=== PATIENT | male | born 1940 | race Caucasian/White ===

== ENCOUNTER 2017-11-14 12:39 | Emergency (ER) | payer MEDICARE ==
--- NOTE | 2017-11-14 13:05 | EDM.PDOC ---
ED HPI GENERAL MEDICAL PROBLEM - General Chief Complaint: Neuro Symptoms/Deficits Stated Complaint: ACUTE COGNITIVE CHANGES Time Seen by Provider: 11/14/17 12:45 Source of Information: Reports: Halfway Records, Old Records History Limitations: Reports: Altered Mental Status, Physical Impairment - History of Present Illness INITIAL COMMENTS - FREE TEXT/NARRATIVE: Kari is a patient at [facility] who has a remote hx of Type II DM on insulin, CVA, and epilepsy. This am, he appears lethargic, incapable of participating in any ADLs with staff, and not eating. He typically is nonverbal , operates a motorized wheelchair, and gestures when needs assistance. There has been no injury hx, fever, chills, sweats, hypoglycemic episodes, chest pain or dyspnea. - Related Data Allergies Allergy/AdvReac Type Severity Reaction Status Date / Time No Known Allergies Allergy Verified 11/14/17 12:52 Home Meds: Home Meds Baclofen 10 mg PO BID 10/28/13 [History] Ca Cmb No.1/Vit D3/B-6/FA/B12 [Vitamin D3 1,000 Unit] 1 each PO DAILY 10/28/13 [ History] Ferrous Sulfate [Iron] 325 mg PO BID 10/28/13 [History] Folic Acid 1 mg PO DAILY 10/28/13 [History] Furosemide [Lasix] 80 mg PO DAILY 10/28/13 [History] Gabapentin [Neurontin] 300 mg PO DAILY 10/28/13 [History] Insulin Glarg,Human.Rec.Analog [LantUS] 60 unit SUBCUT BEDTIME 10/28/13 [History ] Omeprazole 20 mg PO DAILY 10/28/13 [History] PARoxetine [Paxil] 10 mg PO DAILY 10/28/13 [History] Potassium Chloride 10 meq PO BID 10/28/13 [History] Sennosides/Docusate Sodium [Senna-S] 1 each PO BID 10/28/13 [History] Simvastatin [Zocor] 20 mg PO BEDTIME 10/28/13 [History] Warfarin [Coumadin] 5 mg PO ASDIRECTED 10/28/13 [History] metFORMIN [Glucophage] 1,000 mg PO BIDM 10/28/13 [History] traMADol HCl [Ultram] 50 mg PO DAILY 10/28/13 [History] Acetaminophen [Tylenol] 325 mg PO Q4HR PRN 05/06/14 [History] Acetaminophen/HYDROcodone [[place] 325-5 MG] 1 tab PO Q6H PRN 05/06/14 [History] Clotrimazole/Betamethasone Dip [Lotrisone Cream] 1 applic TOP BID 05/06/14 [ History] Ascorbic Acid [C-1000] 1,000 mg PO DAILY 05/08/15 [History] Dextromethorphan/guaiFENesin [Robitussin DM] 5 ml PO Q4H 05/08/15 [History] Dextrose [Glucose Gel] 37.5 gm PO DAILY 05/08/15 [History] Eucalyptus/Menthol [Menthol Cough Drops] 1 each MM ASDIRECTED PRN 05/08/15 [ History] Glucagon,Human Recombinant [Glucagon Emergency Kit] 1 mg IM DAILY PRN 05/08/15 [ History] Glycerin 1 each RC Q72H PRN 05/08/15 [History] Hydrocortisone [Hydrocortisone 1% Crm] 1 applic TOP BID PRN 05/08/15 [History] Insulin Aspart [NovoLOG] 6 units SUBCUT DAILY 05/08/15 [History] Magnesium Hydroxide [Milk of Magnesia] 30 ml PO BEDTIME PRN 05/08/15 [History] Multivitamin [One Daily Multivitamin] 1 each PO DAILY 05/08/15 [History] Na Phos,M-B/Na Phos,DI-B [Fleet Enema] 118 ml RC DAILY PRN 05/08/15 [History] Warfarin [Coumadin] 6 mg PO ASDIRECTED 05/08/15 [History] Zinc 50 mg PO DAILY 05/08/15 [History] levETIRAcetam [Levetiracetam] 1,000 mg PO BID 05/08/15 [History] levETIRAcetam [Keppra] 1,000 mg PO BID 05/09/15 [History] Past Medical History Other HEENT History: BLEPHAROSPASM Cardiovascular History: Reports: Blood Clots/VTE/DVT, Cardiomyopathy, High Cholesterol Other Cardiovascular History: PERIPHERAL VASCULAR DISEASE Other Respiratory History: SLEEP DISORDER Gastrointestinal History: Reports: GERD Genitourinary History: Reports: Urinary Incontinence, UTI, Recurrent Neurological History: Reports: CVA, Speech Problems Other Psychiatric History: APHASIA Endocrine/Metabolic History: Reports: Diabetes, Type II, IDDM Hematologic History: Reports: Folic Acid, Iron Deficiency ED ROS GENERAL - Review of Systems Review Of Systems: Unable To Obtain ED EXAM, GENERAL - Physical Exam Exam: See Below Exam Limited By: Altered Mental Status General Appearance: No Apparent Distress, Lethargic, Obese Eye Exam: Bilateral Eye: Normal Inspection, PERRL Ears: Normal External Exam Nose: Normal Inspection Throat/Mouth: Normal Inspection, No Airway Compromise Head: Normocephalic Neck: Normal Inspection, Supple Respiratory/Chest: Lungs Clear, Decreased Breath Sounds Cardiovascular: Regular Rate, Rhythm, No Murmur GI/Abdominal: Normal Bowel Sounds, Soft, Non-Tender, No Organomegaly, No Distention, No Mass (Male) Exam: No Hernia Rectal (Males) Exam: Deferred Back Exam: Normal Inspection Extremities: Limited Range of Motion (RUE>RLE; ) Neurological: Inattentive, Disoriented, Unresponsive, Other (yells and moves to flexion with pain) Psychiatric: Flat Affect Skin Exam: Warm, Dry, Intact, Normal Color, No Rash Lymphatic: No Adenopathy Course - Vital Signs Text/Narrative:: Following asessment at the [facility] ED, some screenng labwork including CBC, CMP Troponin I, ekg and UA were reviewed and remain baseline. Mr Brand remains lethargic without new focal neurologic or cardopulmonary findings. He will be returned to SNF. No change in medical therapy anticipated at this time. Last Recorded V/S: Last Vital Signs Temp 36.2 C 11/14/17 13:41 Pulse 72 11/14/17 13:41 Resp 20 11/14/17 13:41 BP 119/46 L 11/14/17 13:41 Pulse Ox 100 11/14/17 13:41 - Orders/Labs/Meds Orders: Active Orders 24 hr Category Date Time Status EKG Documentation Completion [RC] ASDIRECTED Care 11/14/17 12:59 Active URINALYSIS W/MICROSCOPIC [UA W/MICROSCOPIC] [URIN] Stat Lab 11/14/17 13:00 Ordered EKG 12 Lead [EK] Routine Ther 11/14/17 12:58 Ordered Labs: Laboratory Tests 11/14/17 11/14/17 11/14/17 Range/Units 13:00 13:15 13:15 WBC 4.4 L (4.5-12.0) X10-3/uL RBC 3.02 L (4.30-5.75) x10(6)uL Hgb 8.3 L (11.5-15.5) g/dL Hct 26.2 L (30.0-51.3) % MCV 87.0 (80-96) fL MCH 27.5 L (27.7-33.6) pg MCHC 31.7 L (32.2-35.4) g/dL RDW 16.3 H (11.5-15.5) % Plt Count 220 (125-369) X10(3)uL MPV 7.1 L (7.4-10.4) fL Neut % (Auto) 51.0 (46-82) % Lymph % (Auto) 25.9 (13-37) % Dolores % (Auto) 17.3 H (4-12) % Eos % (Auto) 5 (1.0-5.0) % Baso % (Auto) 0 (0-2) % Neut # (Auto) 2.3 (1.6-8.3) # Lymph # (Auto) 1.1 (0.6-5.0) # Dolores # (Auto) 0.8 (0.0-1.3) # Eos # (Auto) 0.2 (0.0-0.8) # Baso # (Auto) 0.0 (0.0-0.2) # Sodium 145 (135-145) mmol/L Potassium 4.0 (3.5-5.3) mmol/L Chloride 107 (100-110) mmol/L Carbon Dioxide 32 (21-32) mmol/L BUN 21 H (7-18) mg/dL Creatinine 1.3 (0.70-1.30) mg/dL Est Cr Clr Drug Dosing 43.62 mL/min Estimated GFR (MDRD) 54 L (>60) BUN/Creatinine Ratio 16.2 (9-20) Glucose 139 H (80-116) mg/dL Calcium 8.8 (8.6-10.2) mg/dL Total Bilirubin 0.7 (0.1-1.3) mg/dL AST 32 H (5-25) IU/L ALT 20 (12-36) U/L Alkaline Phosphatase 109 (56-112) IU/L Troponin I (<0.017-0.056) ng/mL Total Protein 6.6 (6.0-8.0) g/dL Albumin 2.5 L (3.2-4.6) g/dL Globulin 4.1 g/dL Albumin/Globulin Ratio 0.6 Urine Color Yellow (YELLOW) Urine Appearance Clear (CLEAR) Urine pH 6.0 (5.0-6.5) Ur Specific [place] 1.020 (1.010-1.025) Urine Protein Negative (NEGATIVE) mg/dL Urine Glucose (UA) Normal (NEGATIVE) mg/dL Urine Ketones Negative (NEGATIVE) mg/dL Urine Occult Blood Negative (NEGATIVE) Urine Nitrite Negative (NEGATIVE) Urine Bilirubin Small H (NEGATIVE) Urine Urobilinogen 1 H (NEGATIVE) mg/dL Ur Leukocyte Esterase Negative (NEGATIVE) Urine RBC 0-5 (0) Urine WBC 0-5 (0) Ur Squamous Epith Cells Few H (NS,R,O) Urine Bacteria Many H (NS) 11/14/17 Range/Units 13:15 WBC (4.5-12.0) X10-3/uL RBC (4.30-5.75) x10(6)uL Hgb (11.5-15.5) g/dL Hct (30.0-51.3) % MCV (80-96) fL MCH (27.7-33.6) pg MCHC (32.2-35.4) g/dL RDW (11.5-15.5) % Plt Count (125-369) X10(3)uL MPV (7.4-10.4) fL Neut % (Auto) (46-82) % Lymph % (Auto) (13-37) % Dolores % (Auto) (4-12) % Eos % (Auto) (1.0-5.0) % Baso % (Auto) (0-2) % Neut # (Auto) (1.6-8.3) # Lymph # (Auto) (0.6-5.0) # Dolores # (Auto) (0.0-1.3) # Eos # (Auto) (0.0-0.8) # Baso # (Auto) (0.0-0.2) # Sodium (135-145) mmol/L Potassium (3.5-5.3) mmol/L Chloride (100-110) mmol/L Carbon Dioxide (21-32) mmol/L BUN (7-18) mg/dL Creatinine (0.70-1.30) mg/dL Est Cr Clr Drug Dosing mL/min Estimated GFR (MDRD) (>60) BUN/Creatinine Ratio (9-20) Glucose (80-116) mg/dL Calcium (8.6-10.2) mg/dL Total Bilirubin (0.1-1.3) mg/dL AST (5-25) IU/L ALT (12-36) U/L Alkaline Phosphatase (56-112) IU/L Troponin I < 0.017 L (<0.017-0.056) ng/mL Total Protein (6.0-8.0) g/dL Albumin (3.2-4.6) g/dL Globulin g/dL Albumin/Globulin Ratio Urine Color (YELLOW) Urine Appearance (CLEAR) Urine pH (5.0-6.5) Ur Specific [place] (1.010-1.025) Urine Protein (NEGATIVE) mg/dL Urine Glucose (UA) (NEGATIVE) mg/dL Urine Ketones (NEGATIVE) mg/dL Urine Occult Blood (NEGATIVE) Urine Nitrite (NEGATIVE) Urine Bilirubin (NEGATIVE) Urine Urobilinogen (NEGATIVE) mg/dL Ur Leukocyte Esterase (NEGATIVE) Urine RBC (0) Urine WBC (0) Ur Squamous Epith Cells (NS,R,O) Urine Bacteria (NS) Departure - Departure Time of Disposition: 14:16 Disposition: DC/Tfer to SNF 03 Condition: Fair Clinical Impression: Lethargy - Discharge Information Forms: ED Department Discharge - Problem List & Annotations (1) Lethargy SNOMED Code(s): 441965667 Code(s): R53.83 - OTHER FATIGUE Status: Acute Current Visit: Yes Annotation/Comment:: Lethargy NOS, likely multifactorial with chronic disease. He will return to SNF, keep comfortable and offer nuitrition and hydration as tolerated. - Problem List Review Problem List Initiated/Reviewed/Updated: Yes - My Orders Last 24 Hours: My Active Orders 11/14/17 12:58 EKG 12 Lead [EK] Routine 11/14/17 12:59 EKG Documentation Completion [RC] ASDIRECTED 11/14/17 13:00 URINALYSIS W/MICROSCOPIC [UA W/MICROSCOPIC] [URIN] Stat - Assessment/Plan Last 24 Hours: My Active Orders 11/14/17 12:58 EKG 12 Lead [EK] Routine 11/14/17 12:59 EKG Documentation Completion [RC] ASDIRECTED 11/14/17 13:00 URINALYSIS W/MICROSCOPIC [UA W/MICROSCOPIC] [URIN] Stat Plan: Follow up with PCP.
[2017-11-14 14:32] VITALS: BP 125/45
== END 2017-11-14 14:37 ==
LOC: FB.ED 12:39
DX: R53.83 Other fatigue (principal); E11.9 Type 2 diabetes mellitus without complications; E78.00 Pure hypercholesterolemia, unspecified; K21.9 Gastro-esophageal reflux disease without esophagitis; I42.9 Cardiomyopathy, unspecified; Z79.899 Other long term (current) drug therapy; Z79.4 Long term (current) use of insulin; Z79.01 Long term (current) use of anticoagulants
CPT/HCPCS: 36415; 80053; 81001; 84484; 85025; 93005; 99283

== ENCOUNTER 2017-12-10 23:11 | Inpatient (IN) | payer MEDICARE ==
[2017-12-10] MEDS: Sodium Chloride 0.9% 1,000 ML IV SCH (23:35)
[2017-12-10] MEDS ORDERED: Piperacillin/Tazobactam 3.375 GM in Sodium Chloride 0.9% 50 ML IV SCH (23:45)
[2017-12-11] MEDS ORDERED: Acetaminophen 325 MG Tab PO PRN (02:22)
[2017-12-11] MEDS ORDERED: Docusate Sodium 100 MG Cap PO PRN (02:22)
[2017-12-11] MEDS ORDERED: Ondansetron 4 MG/2 ML SDV IV PRN (02:22)
[2017-12-11] MEDS ORDERED: Ondansetron 8 MG Tab.DIS PO PRN (02:22)
[2017-12-11] MEDS ORDERED: Glucagon,Human Recombinant 1 MG Vial IM PRN (02:34)
[2017-12-11] MEDS ORDERED: Acetaminophen 650 MG Tab.ER PO PRN (02:34)
[2017-12-11] MEDS ORDERED: Piperacillin/Tazobactam 2.25 GM in Sodium Chloride 0.9% 50 ML IV SCH ×2 (02:45→06:00)
[2017-12-11] MEDS ORDERED: Norepinephrine 4 MG in Dextrose 5% in Water 246 ML IV SCH ×2 (03:15)
[2017-12-11] MEDS ORDERED: Magnesium Hydroxide 400 MG/5 ML Susp 30 ML Cup PO PRN (03:29)
[2017-12-11] MEDS: Hydrocortisone Sodium Succinate 100 MG/2 ML SDV IVPUSH SCH ×4 (04:41→21:07)
[2017-12-11] MEDS: Pantoprazole 40 MG Tab.CR PO SCH (06:39)
[2017-12-11] MEDS: Potassium Chloride 10 MEQ Tab.ER PO SCH ×2 (08:29→19:14)
[2017-12-11] MEDS: Baclofen 10 MG Tab PO SCH ×2 (08:29→21:06)
[2017-12-11] MEDS: Folic Acid 1 MG Tab PO SCH (08:29)
[2017-12-11] MEDS: metFORMIN 1,000 MG Tab PO SCH ×2 (08:29→17:27)
[2017-12-11] MEDS: levETIRAcetam 500 MG Tab PO SCH ×2 (08:29→21:06)
[2017-12-11] MEDS: Multivitamin Tab PO SCH (08:30)
[2017-12-11] MEDS: Cholecalciferol (Vitamin D3) 1,000 Unit Tab PO SCH (08:30)
[2017-12-11] MEDS: HYPROMELLOSE 0.3% EYEBOTH SCH ×2 (08:34→21:05)
--- NOTE | 2017-12-11 08:46 | ER ---
DATE SEEN: 12/10/2017 TIME SEEN: The patient was seen on his arrival at 2330 hours. HISTORY OF PRESENT ILLNESS: This 77-year-old [facility] patient was sent to the emergency room this evening because he had a fever. He had an order on 12/08/2017 for 2 units of blood, and the [facility] staff noted he received 2 units of blood on 12/09/2017. His hemoglobin was less than 8 at that time. Hemoglobin is 9.7 today. The patient has significant serious past medical history of coronary artery disease. He is on warfarin for multiple DVTs, and also multiple strokes and TIAs. He is a diabetic and is dependent on metformin 1000 mg b.i.d., and has insulin 60 units glargine at bedtime. Dyslipidemia, depression, and seizure disorder using levetiracetam 1000 mg b.i.d. and gabapentin 300 mg t.i.d. Dry eyes and baclofen for muscle tightness (status post CVA). He has a Port-A-Cath. Peripheral vascular disease secondary to diabetes, peripheral diabetic neuropathy with previous DVTs, several of them; for this reason, he is on anticoagulants and uses warfarin on Sundays and then 6 mg and 5 mg other days of the week. He has DVT noted since 11/01/1999 and has been on Coumadin since. Cholecystectomy and right SHANNON (total hip arthroplasty). He has not worked since 1997 when he had a stroke. He stopped smoking in 1998. 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 More recently, on 10/27/2017, he had 5 days of Levaquin 500 mg. On 10/10/2017, he had Keflex 500 mg t.i.d. for cellulitis of lower extremities. The cellulitis has resolved. On 11/14/2017, he was congested and placed on Lasix 80 mg daily. The patient has dark stools (he is not aware of them). The patient is a poor historian. He just laughs and has belly laugh, and does not communicate more than a hi and okay. His review of systems per [facility] staff are as listed in the HPI. REVIEW OF SYSTEMS: More specific information is gleaned from the custodial chart. HEENT: His own teeth. He is able to eat food. CARDIORESPIRATORY: As above. No history of coughing or chest pain. His oxygen saturation runs below 92%. He has edema in the right lower extremity more than left lower extremity. GI: He had dark stools. Last bowel movement on 12/09/2017. He is incontinent of stool. : Incontinent of urine, wears Attends. MUSCULOSKELETAL: Totally dependent on [facility] staff to move him. He has a large suspensory apparatus to move him about with Alyssa lift. NEURO: He is aware of family and [facility] staff. He is pleasant in general, and has made his maurice at the custodial by watering plants, keeping the plants, and raising plants, which he is quite proud of. SKIN: He has not had recurrent cellulitis of lower extremities since treated in September. ALLERGIES: None. CURRENT MEDICATIONS: 1. Cough medicine with guaifenesin. 2. Iron sulfate b.i.d. 3. Vitamin D 1000 units daily. 4. Warfarin 6 mg Mondays and 3 mg the other days. 5. Magnesium hydroxide 30 mg p.r.n. 6. Hypromellose, GenTeal eye drops b.i.d. 7. Glucagon p.r.n. 8. Gabapentin 300 mg t.i.d. for seizures. 9. Acetaminophen 650 q.6 hours. 10.Lantus 60 units at bedtime. 11.Senna-S 1 tablet b.i.d. 12.Potassium chloride 10 mEq b.i.d. 13.Simvastatin 20 mg daily. 14.Baclofen 10 mg b.i.d. 15.Paxil 30 mg daily. 16.Lasix 80 mg at bedtime (been increased recently). 17.Tramadol 50 mg at bedtime. 18.Levetiracetam 1000 mg b.i.d. 19.Multivitamin daily. 20.Folic acid 1 mg daily. 21.Omeprazole 20 mg daily. PHYSICAL EXAMINATION: VITAL SIGNS: Blood pressures had been low since his arrival at 86/25, 75/22, 80/46; heart rate 87, 85, and 82; respirations 20 and 18 when he is sleeping. Oxygen saturation 91% each occasion. Temperature is 38.6 on arrival, is now 38, and at 0130 hours was 36.5 centigrade in the ED. GENERAL: The patient is alert. He has a happy laugh, but his only communication was "hi" to the senior technical editor. He did not say anything to me. HEENT: He has mild poor opening of the left eye compared to the right eye. Pupils do react to light and they are consensual. Hearing is good. Pharynx is dry. He is edentulous. NECK: Without bruits. No thyromegaly or masses. No cervical adenopathy. No tracheal tug. No tracheal deviation. LUNGS: Clear to auscultation with rare rales at the bases posteriorly. HEART: S1 and S2. There is no irregular rate or rhythm. Heart sounds are distant. ABDOMEN: The patient has massive obesity with a massive increase in abdominal girth. Bowel sounds are present. No tenderness. Previous cholecystectomy scar is noted. No mass in the abdomen. No tenderness. GENITALIA: Negative. In-and-out Holliday catheter was placed for urine specimen. No hernia demonstrated. Testes are bilaterally descended. EXTREMITIES: Lower extremities, right lower extremity has greater edema than the left. Dorsalis pedis is weak bilaterally, but present bilaterally. Radial pulse is good. Carotid pulse is good. No jugular venous distention. NEURO: Deep tendon reflexes are absent in upper and lower extremities. Cranial nerves 2 through 12 are intact. It is unable to determine if he is oriented. He has very minimal communication because of his extensive CVA. He has right hemiparesis and hemiplegic. He has good strength in the left arm. Less strength in the left lower extremity. He is not ambulatory. He is totally bedridden. DERMIS: No evidence for decubiti. Skin is well taken care of by [facility] staff. PSYCHIATRIC: The patient is noted to be depressed, he is taking antidepressant, but he is quite buoyant with his laughter. He does acknowledge some of the history related to him and gleaned from the chart. 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 LABORATORY FINDINGS: Hemoglobin 9.7 and was 7.8 yesterday; two days before, he had the transfusion of 2 units. He needs several more units, however. His hemoglobin on August 13 was 9.4; on 11/05/2017, 8.9; 11/12/2017, 8.1; 11/14/2017, 8.3; 12/04/2017, 7.6; and now after two units of blood, 9.7 on 12/10/2017. Today's INR was 2.0 (0.89-1.13) and PT was 19.3 (8.7-11.1). ABG today, no suggestion of acidosis with pH 7.43, pCO2 of 36, pO2 of 65 on room air, bicarb 24, and oxygen saturation 93%. Today's chemistries with sodium 145, potassium 3.7, chloride 107, CO2 of 25, BUN 17, creatinine 1.6, and GFR 42 (chronic kidney disease, stage III). BUN and creatinine ratio does not suggest dehydration at 10.6 and glucose 115. Hemoglobin A1c is 5.6 (4.5-6.2). Lactic acid is elevated at 5.2 (reflecting early sepsis). Calcium is 7.9 with a calculated calcium of 9.2. Iron is low at 22 (38-169) on 11/12/2017 with elevated iron binding capacity and iron saturation of 7% (15-55) on 11/12/2017, unsaturated iron binding capacity at 298 normal, and ferritin 16 (30-40). Total bilirubin 0.8, was normal. Today's AST was slightly elevated at 33 (5/25) and ALT was 22 (normal 12-36). Troponin 0.021, not elevated today. BNP was mildly elevated at 711 (less than 450). Total protein 6.6, albumin 2.4, and globulin normal. On August 13, 2017, LDL cholesterol was 48, HDL cholesterol was 45, and total cholesterol was 98 at that time. Vitamin B12 was normal. Methylmalonic acid was normal. Folate normal. TSH was normal at 0.51 (0.36-3.74). Today's urine, cath specimen, moderate occult secondary to catheterization, large leukocyte esterase, 10-20 RBC's secondary to catheterization, and 5-10 WBC's with few bacteria. In August phenytoin was 0.2 mcg/mL (10-20) and levetiracetam 36.7 mcg/mL (10-40). ASSESSMENT: 1. The patient's fever etiology is indeterminate. Chest x-ray with suggestion of left lower lobe infiltrate. On comparison to previous chest x-rays, he has an ectatic aorta - torturous and widened mediastinum, which is noted to be secondary to fat on 05/02/2015 - prominent mediastinum. 2. Diabetes with controlled glucose. Presently, glucose is normal range, which suggests he should not have evening insulin dose. 3. Anticoagulation for his previous CVA's, transient ischemic attacks, and also multiple deep venous thromboses. 4. Normal D-dimer, no suggestion of aortic aneurysm or pulmonary embolism. 5. Hypoxia without respiratory acidosis. 6. Chronic kidney disease, stage III. 7. Lactic acidosis at 5.3, is elevated. 8. Calculated calcium is normal at 9.5. 9. Congestive heart failure, mild - trace. It goes along with his marked cardiomegaly (big mediastinal shadow with previous November 2014 x-ray. 10.No evidence for urinary tract infection. 11.Temperature has ranged from 100.3 in Alf to 101.5, which came down and is associated with the hypotension at 86/25, which suggests early sepsis with elevated lactic acid. Plan is to start norepinephrine and also antibiotics started, Zosyn and vancomycin. 12.He has a Port-A-Cath. 13.Dyslipidemia. 14.Depression. 15.Seizure disorder, stable. 16.On Baclofen, I think this is because of his previous CVAs. 17.Multiple deep venous thromboses in the past and multiple CVAs, consequently using anticoagulant, Coumadin. 18.Status post smoking, stopped in 1998. 19.Previous CVA in 1997. 20.The patient has been in the custodial since 2005 and has very limited communication skills, but he jokes a lot and is happy in spite of this. 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 21.Anticoagulation, chronic. 22.Hypoxia. 23.Anemia. PLAN: Admit for IV antibiotics and start norepinephrine low-dose to bring his systolic up to 90s/100s. The patient was seen on his arrival at 2330. The patient was admitted for further therapeutic care, and also ICU because he is going to be placed on norepinephrine. /[id number] CARLOS/SANDRA
--- NOTE | 2017-12-11 08:54 | ER ---
DATE SEEN: 12/10/2017 ADDENDUM: The patient has a positive Hemoccult stool. Has a GI bleed, etiology was indeterminate. I have not been able to document previous endoscopies on the chart. Perhaps, he is going to need that to validate and/or verify the source. The Journal of Internal Medicine (this month's COURT) noted that 10-15% of lower GI bleeds with bright red blood can be from an upper GI source. Consequently, EGD and also colonoscopy may or may not be needed to verify source of bleed. In view of his compromised cardiovascular and neuro status, perhaps, a lengthy discussion needs to be undertaken with family and deferred to the hospitalist. /[id number] CARLOS/SANDRA
--- NOTE | 2017-12-11 09:23 | PCM.HP ---
H&P History of Present Illness - General Date of Service: 12/11/17 Admit Problem/Dx: Admission Diagnosis/Problem Admission Diagnosis/Problem Sepsis Source of Information: Old Records History Limitations: Reports: Language Barrier - History of Present Illness Initial Comments - Free Text/Narative: This history was obtained mostly from records and [facility] records. Kari is a 77-year-old male was brought in because of fever and lethargy. The symptoms were sudden in onset yesterday, a day after 2 units of PRBCs were transfused. He has a history of CVA with right-sided hemiplegia and aphasia and therefore cannot give history. Temperature was recorded 101 at the [facility] , with an initial blood systolic blood pressure 101 and a pulse of 85. 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 - Related Data Allergies/Adverse Reactions: Allergies Allergy/AdvReac Type Severity Reaction Status Date / Time No Known Allergies Allergy Verified 12/11/17 06:13 Home Medications: Home Meds Baclofen 10 mg PO BID 10/28/13 [History] Folic Acid 1 mg PO DAILY 10/28/13 [History] Furosemide [Lasix] 80 mg PO BEDTIME 10/28/13 [History] Gabapentin [Neurontin] 300 mg PO TID 10/28/13 [History] Insulin Glarg,Human.Rec.Analog [LantUS] 60 unit SUBCUT BEDTIME 10/28/13 [History ] Omeprazole 20 mg PO DAILY 10/28/13 [History] Potassium Chloride 10 meq PO BID 10/28/13 [History] Sennosides/Docusate Sodium [Senna-S] 1 each PO BID 10/28/13 [History] Simvastatin [Zocor] 20 mg PO BEDTIME 10/28/13 [History] metFORMIN [Glucophage] 1,000 mg PO BID 10/28/13 [History] traMADol HCl [Ultram] 50 mg PO BEDTIME 10/28/13 [History] Glucagon,Human Recombinant [Glucagon Emergency Kit] 1 mg IM DAILY PRN 05/08/15 [ History] Magnesium Hydroxide [Milk of Magnesia] 30 ml PO BEDTIME PRN 05/08/15 [History] Multivitamin [One Daily Multivitamin] 1 each PO DAILY 05/08/15 [History] Warfarin [Coumadin] 6 mg PO MO 05/08/15 [History] levETIRAcetam [Levetiracetam] 1,000 mg PO BID 05/08/15 [History] Hypromellose [Genteal] 1 applic OP BID 11/14/17 [History] PARoxetine [Paxil] 30 mg PO DAILY 11/14/17 [History] Warfarin Sodium [Coumadin] 3 mg PO SUTUWETHFRSA 11/14/17 [History] Acetaminophen [Tylenol] 650 mg PO Q4H PRN 12/11/17 [History] Cholecalciferol (Vitamin D3) [Vitamin D3] 1,000 units PO DAILY 12/11/17 [History ] Ferrous Sulfate 324 mg PO BID 12/11/17 [History] guaiFENesin [Robitussin] 100 mg PO Q4H PRN 12/11/17 [History] Past Medical History - Past Health History Medical/Surgical History: Denies Medical/Surgical History HEENT History: Reports: Cataract, Other (See Below) Other HEENT History: BLEPHAROSPASM Cardiovascular History: Reports: Blood Clots/VTE/DVT, Cardiomyopathy, High Cholesterol Other Cardiovascular History: PERIPHERAL VASCULAR DISEASE Other Respiratory History: SLEEP DISORDER Gastrointestinal History: Reports: GERD Genitourinary History: Reports: Urinary Incontinence, UTI, Recurrent Neurological History: Reports: CVA, Speech Problems Psychiatric History: Reports: Suicidal Ideation Other Psychiatric History: APHASIA Endocrine/Metabolic History: Reports: Diabetes, Type II, IDDM Hematologic History: Reports: Folic Acid, Iron Deficiency - Past Surgical History Other Musculoskeletal Surgeries/Procedures:: unsure Social & Family History - Family History Family Medical History: Noncontributory - Tobacco Use Smoking Status *Q: Never Smoker Second Hand Smoke Exposure: No - Caffeine Use Caffeine Use: Reports: Coffee Other Caffeine Use: 1 to 2 cups daily Caffeine Use Comment: 1 cup coffee per day. Approximately 50oz soda per day. - Recreational Drug Use Recreational Drug Use: No H&P Review of Systems - Review of Systems: Review Of Systems: Unable To Obtain Exam - Exam Exam: See Below - Vital Signs Vital Signs: Last Vital Signs Temp 98.1 F 12/11/17 07:25 Pulse 70 12/11/17 07:25 Resp 18 12/11/17 07:25 BP 115/57 L 12/11/17 07:25 Pulse Ox 91 L 12/11/17 07:25 Weight: 116.573 kg - Exam Quality Assessment: No: Supplemental Oxygen General: Lethargic HEENT: PERRLA Neck: Supple Lungs: Normal Respiratory Effort, Rales Cardiovascular: Regular Rate, Regular Rhythm GI/Abdominal Exam: Normal Bowel Sounds, Soft, Non-Tender, Distended Back Exam: Normal Inspection Extremities: Normal Inspection. No: Pedal Edema, Increased Warmth Skin: Warm Neurological: Focal Deficit Neuro Extensive - Mental Status: Alert Neuro Extensive - Motor, Sensory, Reflexes: Motor/Sensory Deficits Psychiatric: Alert - Patient Data Lab Results Last 24 hrs: Laboratory Results - last 24 hr 12/10/17 12/10/17 12/10/17 Range/Units 00:00 00:00 00:00 WBC (4.5-12.0) X10-3/uL RBC (4.30-5.75) x10(6)uL Hgb (11.5-15.5) g/dL Hct (30.0-51.3) % MCV (80-96) fL MCH (27.7-33.6) pg MCHC (32.2-35.4) g/dL RDW (11.5-15.5) % Plt Count (125-369) X10(3)uL MPV (7.4-10.4) fL Neut % (Auto) (46-82) % Lymph % (Auto) (13-37) % Bay % (Auto) (4-12) % Eos % (Auto) (1.0-5.0) % Baso % (Auto) (0-2) % Neut # (Auto) (1.6-8.3) # Lymph # (Auto) (0.6-5.0) # Bay # (Auto) (0.0-1.3) # Eos # (Auto) (0.0-0.8) # Baso # (Auto) (0.0-0.2) # Add Manual Diff Neutrophils % (Manual) (46-82) % Lymphocytes % (Manual) (13-37) % Monocytes % (Manual) (4-12) % Eosinophils % (Manual) (0-5) % PT (8.7-11.1) INR (0.89-1.13) D-Dimer, Quantitative (0.0-0.59) mg/LFEU ABG pH (7.35-7.45) ABG pCO2 (35-45) mmHg ABG pO2 (83-108) mmHg ABG HCO3 (22-26) mmol/L ABG O2 Saturation (96-97) % ABG Base Excess (-2-2) Gonzalo Test O2 Delivery Device Sodium (135-145) mmol/L Potassium (3.5-5.3) mmol/L Chloride (100-110) mmol/L Carbon Dioxide (21-32) mmol/L BUN (7-18) mg/dL Creatinine (0.70-1.30) mg/dL Est Cr Clr Drug Dosing Estimated GFR (MDRD) (>60) BUN/Creatinine Ratio (9-20) Glucose (80-116) mg/dL Hemoglobin A1c (4.5-6.2) % Lactic Acid 5.2 H* (0.4-2.2) mmol/L Calcium (8.6-10.2) mg/dL Phosphorus (2.6-4.6) mg/dL Magnesium (1.8-2.5) mg/dL Total Bilirubin (0.1-1.3) mg/dL AST (5-25) IU/L ALT (12-36) U/L Alkaline Phosphatase (56-112) IU/L Troponin I 0.021 (<0.017-0.056) ng/mL NT-Pro-B Natriuret Pep 711 H (<=450) pg/mL Total Protein (6.0-8.0) g/dL Albumin (3.2-4.6) g/dL Globulin g/dL Albumin/Globulin Ratio TSH, Ultra Sensitive (0.36-3.74) IU/mL Urine Color (YELLOW) Urine Appearance (CLEAR) Urine pH (5.0-6.5) Ur Specific [place] (1.010-1.025) Urine Protein (NEGATIVE) mg/dL Urine Glucose (UA) (NEGATIVE) mg/dL Urine Ketones (NEGATIVE) mg/dL Urine Occult Blood (NEGATIVE) Urine Nitrite (NEGATIVE) Urine Bilirubin (NEGATIVE) Urine Urobilinogen (NEGATIVE) mg/dL Ur Leukocyte Esterase (NEGATIVE) Urine RBC (0) Urine WBC (0) Ur Squamous Epith Cells (NS,R,O) Urine Bacteria (NS) 12/10/17 12/10/17 12/10/17 Range/Units 00:00 00:00 00:00 WBC (4.5-12.0) X10-3/uL RBC (4.30-5.75) x10(6)uL Hgb (11.5-15.5) g/dL Hct (30.0-51.3) % MCV (80-96) fL MCH (27.7-33.6) pg MCHC (32.2-35.4) g/dL RDW (11.5-15.5) % Plt Count (125-369) X10(3)uL MPV (7.4-10.4) fL Neut % (Auto) (46-82) % Lymph % (Auto) (13-37) % Bay % (Auto) (4-12) % Eos % (Auto) (1.0-5.0) % Baso % (Auto) (0-2) % Neut # (Auto) (1.6-8.3) # Lymph # (Auto) (0.6-5.0) # Bay # (Auto) (0.0-1.3) # Eos # (Auto) (0.0-0.8) # Baso # (Auto) (0.0-0.2) # Add Manual Diff Neutrophils % (Manual) (46-82) % Lymphocytes % (Manual) (13-37) % Monocytes % (Manual) (4-12) % Eosinophils % (Manual) (0-5) % PT 17.4 H (8.7-11.1) INR 1.80 H (0.89-1.13) D-Dimer, Quantitative (0.0-0.59) mg/LFEU ABG pH (7.35-7.45) ABG pCO2 (35-45) mmHg ABG pO2 (83-108) mmHg ABG HCO3 (22-26) mmol/L ABG O2 Saturation (96-97) % ABG Base Excess (-2-2) Gonzalo Test O2 Delivery Device Sodium (135-145) mmol/L Potassium (3.5-5.3) mmol/L Chloride (100-110) mmol/L Carbon Dioxide (21-32) mmol/L BUN (7-18) mg/dL Creatinine (0.70-1.30) mg/dL Est Cr Clr Drug Dosing Estimated GFR (MDRD) (>60) BUN/Creatinine Ratio (9-20) Glucose (80-116) mg/dL Hemoglobin A1c 5.6 (4.5-6.2) % Lactic Acid (0.4-2.2) mmol/L Calcium (8.6-10.2) mg/dL Phosphorus (2.6-4.6) mg/dL Magnesium (1.8-2.5) mg/dL Total Bilirubin (0.1-1.3) mg/dL AST (5-25) IU/L ALT (12-36) U/L Alkaline Phosphatase (56-112) IU/L Troponin I (<0.017-0.056) ng/mL NT-Pro-B Natriuret Pep (<=450) pg/mL Total Protein (6.0-8.0) g/dL Albumin (3.2-4.6) g/dL Globulin g/dL Albumin/Globulin Ratio TSH, Ultra Sensitive 0.51 (0.36-3.74) IU/mL Urine Color (YELLOW) Urine Appearance (CLEAR) Urine pH (5.0-6.5) Ur Specific [place] (1.010-1.025) Urine Protein (NEGATIVE) mg/dL Urine Glucose (UA) (NEGATIVE) mg/dL Urine Ketones (NEGATIVE) mg/dL Urine Occult Blood (NEGATIVE) Urine Nitrite (NEGATIVE) Urine Bilirubin (NEGATIVE) Urine Urobilinogen (NEGATIVE) mg/dL Ur Leukocyte Esterase (NEGATIVE) Urine RBC (0) Urine WBC (0) Ur Squamous Epith Cells (NS,R,O) Urine Bacteria (NS) 12/10/17 12/10/17 12/10/17 Range/Units 00:00 00:00 00:00 WBC 6.3 (4.5-12.0) X10-3/uL RBC 3.43 L (4.30-5.75) x10(6)uL Hgb 9.7 L (11.5-15.5) g/dL Hct 30.1 (30.0-51.3) % MCV 87.9 (80-96) fL MCH 28.2 (27.7-33.6) pg MCHC 32.1 L (32.2-35.4) g/dL RDW 16.5 H (11.5-15.5) % Plt Count 169 (125-369) X10(3)uL MPV 7.8 (7.4-10.4) fL Neut % (Auto) (46-82) % Lymph % (Auto) (13-37) % Bay % (Auto) (4-12) % Eos % (Auto) (1.0-5.0) % Baso % (Auto) (0-2) % Neut # (Auto) (1.6-8.3) # Lymph # (Auto) (0.6-5.0) # Bay # (Auto) (0.0-1.3) # Eos # (Auto) (0.0-0.8) # Baso # (Auto) (0.0-0.2) # Add Manual Diff Yes Neutrophils % (Manual) 67 (46-82) % Lymphocytes % (Manual) 20 (13-37) % Monocytes % (Manual) 12 (4-12) % Eosinophils % (Manual) 1 (0-5) % PT (8.7-11.1) INR (0.89-1.13) D-Dimer, Quantitative 0.36 (0.0-0.59) mg/LFEU ABG pH (7.35-7.45) ABG pCO2 (35-45) mmHg ABG pO2 (83-108) mmHg ABG HCO3 (22-26) mmol/L ABG O2 Saturation (96-97) % ABG Base Excess (-2-2) Gonzalo Test O2 Delivery Device Sodium 145 (135-145) mmol/L Potassium 3.7 (3.5-5.3) mmol/L Chloride 107 (100-110) mmol/L Carbon Dioxide 25 (21-32) mmol/L BUN 17 (7-18) mg/dL Creatinine 1.6 H (0.70-1.30) mg/dL Est Cr Clr Drug Dosing TNP Estimated GFR (MDRD) 42 L (>60) BUN/Creatinine Ratio 10.6 (9-20) Glucose 115 (80-116) mg/dL Hemoglobin A1c (4.5-6.2) % Lactic Acid (0.4-2.2) mmol/L Calcium 7.9 L (8.6-10.2) mg/dL Phosphorus (2.6-4.6) mg/dL Magnesium (1.8-2.5) mg/dL Total Bilirubin 0.8 (0.1-1.3) mg/dL AST 33 H (5-25) IU/L ALT 22 (12-36) U/L Alkaline Phosphatase 117 H (56-112) IU/L Troponin I (<0.017-0.056) ng/mL NT-Pro-B Natriuret Pep (<=450) pg/mL Total Protein 6.6 (6.0-8.0) g/dL Albumin 2.4 L (3.2-4.6) g/dL Globulin 4.2 g/dL Albumin/Globulin Ratio 0.6 TSH, Ultra Sensitive (0.36-3.74) IU/mL Urine Color (YELLOW) Urine Appearance (CLEAR) Urine pH (5.0-6.5) Ur Specific [place] (1.010-1.025) Urine Protein (NEGATIVE) mg/dL Urine Glucose (UA) (NEGATIVE) mg/dL Urine Ketones (NEGATIVE) mg/dL Urine Occult Blood (NEGATIVE) Urine Nitrite (NEGATIVE) Urine Bilirubin (NEGATIVE) Urine Urobilinogen (NEGATIVE) mg/dL Ur Leukocyte Esterase (NEGATIVE) Urine RBC (0) Urine WBC (0) Ur Squamous Epith Cells (NS,R,O) Urine Bacteria (NS) 12/10/17 12/10/17 12/11/17 Range/Units 23:55 23:55 00:05 WBC (4.5-12.0) X10-3/uL RBC (4.30-5.75) x10(6)uL Hgb (11.5-15.5) g/dL Hct (30.0-51.3) % MCV (80-96) fL MCH (27.7-33.6) pg MCHC (32.2-35.4) g/dL RDW (11.5-15.5) % Plt Count (125-369) X10(3)uL MPV (7.4-10.4) fL Neut % (Auto) (46-82) % Lymph % (Auto) (13-37) % Bay % (Auto) (4-12) % Eos % (Auto) (1.0-5.0) % Baso % (Auto) (0-2) % Neut # (Auto) (1.6-8.3) # Lymph # (Auto) (0.6-5.0) # Bay # (Auto) (0.0-1.3) # Eos # (Auto) (0.0-0.8) # Baso # (Auto) (0.0-0.2) # Add Manual Diff Neutrophils % (Manual) (46-82) % Lymphocytes % (Manual) (13-37) % Monocytes % (Manual) (4-12) % Eosinophils % (Manual) (0-5) % PT (8.7-11.1) INR (0.89-1.13) D-Dimer, Quantitative (0.0-0.59) mg/LFEU ABG pH 7.43 (7.35-7.45) ABG pCO2 36 (35-45) mmHg ABG pO2 65 L (83-108) mmHg ABG HCO3 24 (22-26) mmol/L ABG O2 Saturation 93 L (96-97) % ABG Base Excess 0.2 (-2-2) Gonzalo Test Passed O2 Delivery Device Room air Sodium (135-145) mmol/L Potassium (3.5-5.3) mmol/L Chloride (100-110) mmol/L Carbon Dioxide (21-32) mmol/L BUN (7-18) mg/dL Creatinine (0.70-1.30) mg/dL Est Cr Clr Drug Dosing Estimated GFR (MDRD) (>60) BUN/Creatinine Ratio (9-20) Glucose (80-116) mg/dL Hemoglobin A1c (4.5-6.2) % Lactic Acid (0.4-2.2) mmol/L Calcium (8.6-10.2) mg/dL Phosphorus 2.5 L (2.6-4.6) mg/dL Magnesium 1.6 L (1.8-2.5) mg/dL Total Bilirubin (0.1-1.3) mg/dL AST (5-25) IU/L ALT (12-36) U/L Alkaline Phosphatase (56-112) IU/L Troponin I (<0.017-0.056) ng/mL NT-Pro-B Natriuret Pep (<=450) pg/mL Total Protein (6.0-8.0) g/dL Albumin (3.2-4.6) g/dL Globulin g/dL Albumin/Globulin Ratio TSH, Ultra Sensitive (0.36-3.74) IU/mL Urine Color (YELLOW) Urine Appearance (CLEAR) Urine pH (5.0-6.5) Ur Specific [place] (1.010-1.025) Urine Protein (NEGATIVE) mg/dL Urine Glucose (UA) (NEGATIVE) mg/dL Urine Ketones (NEGATIVE) mg/dL Urine Occult Blood (NEGATIVE) Urine Nitrite (NEGATIVE) Urine Bilirubin (NEGATIVE) Urine Urobilinogen (NEGATIVE) mg/dL Ur Leukocyte Esterase (NEGATIVE) Urine RBC (0) Urine WBC (0) Ur Squamous Epith Cells (NS,R,O) Urine Bacteria (NS) 12/11/17 12/11/17 12/11/17 Range/Units 01:10 06:30 06:30 WBC 4.1 L (4.5-12.0) X10-3/uL RBC 3.28 L (4.30-5.75) x10(6)uL Hgb 8.9 L (11.5-15.5) g/dL Hct 28.7 L (30.0-51.3) % MCV 87.5 (80-96) fL MCH 27.2 L (27.7-33.6) pg MCHC 31.1 L (32.2-35.4) g/dL RDW 16.4 H (11.5-15.5) % Plt Count 140 (125-369) X10(3)uL MPV 7.5 (7.4-10.4) fL Neut % (Auto) 58.0 (46-82) % Lymph % (Auto) 16.9 (13-37) % Bay % (Auto) 19.3 H (4-12) % Eos % (Auto) 5 (1.0-5.0) % Baso % (Auto) 1 (0-2) % Neut # (Auto) 2.3 (1.6-8.3) # Lymph # (Auto) 0.7 (0.6-5.0) # Bay # (Auto) 0.8 (0.0-1.3) # Eos # (Auto) 0.2 (0.0-0.8) # Baso # (Auto) 0.1 (0.0-0.2) # Add Manual Diff Neutrophils % (Manual) (46-82) % Lymphocytes % (Manual) (13-37) % Monocytes % (Manual) (4-12) % Eosinophils % (Manual) (0-5) % PT (8.7-11.1) INR (0.89-1.13) D-Dimer, Quantitative (0.0-0.59) mg/LFEU ABG pH (7.35-7.45) ABG pCO2 (35-45) mmHg ABG pO2 (83-108) mmHg ABG HCO3 (22-26) mmol/L ABG O2 Saturation (96-97) % ABG Base Excess (-2-2) Gonzalo Test O2 Delivery Device Sodium (135-145) mmol/L Potassium (3.5-5.3) mmol/L Chloride (100-110) mmol/L Carbon Dioxide (21-32) mmol/L BUN (7-18) mg/dL Creatinine (0.70-1.30) mg/dL Est Cr Clr Drug Dosing Estimated GFR (MDRD) (>60) BUN/Creatinine Ratio (9-20) Glucose (80-116) mg/dL Hemoglobin A1c (4.5-6.2) % Lactic Acid (0.4-2.2) mmol/L Calcium (8.6-10.2) mg/dL Phosphorus (2.6-4.6) mg/dL Magnesium (1.8-2.5) mg/dL Total Bilirubin (0.1-1.3) mg/dL AST (5-25) IU/L ALT (12-36) U/L Alkaline Phosphatase (56-112) IU/L Troponin I 0.018 (<0.017-0.056) ng/mL NT-Pro-B Natriuret Pep (<=450) pg/mL Total Protein (6.0-8.0) g/dL Albumin (3.2-4.6) g/dL Globulin g/dL Albumin/Globulin Ratio TSH, Ultra Sensitive (0.36-3.74) IU/mL Urine Color Yellow (YELLOW) Urine Appearance Slightly cloudy (CLEAR) Urine pH 5.0 (5.0-6.5) Ur Specific [place] 1.015 (1.010-1.025) Urine Protein Negative (NEGATIVE) mg/dL Urine Glucose (UA) Normal (NEGATIVE) mg/dL Urine Ketones Negative (NEGATIVE) mg/dL Urine Occult Blood Moderate H (NEGATIVE) Urine Nitrite Negative (NEGATIVE) Urine Bilirubin Negative (NEGATIVE) Urine Urobilinogen Normal (NEGATIVE) mg/dL Ur Leukocyte Esterase Large H (NEGATIVE) Urine RBC 10-20 H (0) Urine WBC 5-10 (0) Ur Squamous Epith Cells Occasional (NS,R,O) Urine Bacteria Few H (NS) 12/11/17 Range/Units 06:30 WBC (4.5-12.0) X10-3/uL RBC (4.30-5.75) x10(6)uL Hgb (11.5-15.5) g/dL Hct (30.0-51.3) % MCV (80-96) fL MCH (27.7-33.6) pg MCHC (32.2-35.4) g/dL RDW (11.5-15.5) % Plt Count (125-369) X10(3)uL MPV (7.4-10.4) fL Neut % (Auto) (46-82) % Lymph % (Auto) (13-37) % Bay % (Auto) (4-12) % Eos % (Auto) (1.0-5.0) % Baso % (Auto) (0-2) % Neut # (Auto) (1.6-8.3) # Lymph # (Auto) (0.6-5.0) # Bay # (Auto) (0.0-1.3) # Eos # (Auto) (0.0-0.8) # Baso # (Auto) (0.0-0.2) # Add Manual Diff Neutrophils % (Manual) (46-82) % Lymphocytes % (Manual) (13-37) % Monocytes % (Manual) (4-12) % Eosinophils % (Manual) (0-5) % PT (8.7-11.1) INR (0.89-1.13) D-Dimer, Quantitative (0.0-0.59) mg/LFEU ABG pH (7.35-7.45) ABG pCO2 (35-45) mmHg ABG pO2 (83-108) mmHg ABG HCO3 (22-26) mmol/L ABG O2 Saturation (96-97) % ABG Base Excess (-2-2) Gonzalo Test O2 Delivery Device Sodium 146 H (135-145) mmol/L Potassium 3.7 (3.5-5.3) mmol/L Chloride 110 (100-110) mmol/L Carbon Dioxide 28 (21-32) mmol/L BUN 17 (7-18) mg/dL Creatinine 1.5 H (0.70-1.30) mg/dL Est Cr Clr Drug Dosing 39.90 Estimated GFR (MDRD) 45 L (>60) BUN/Creatinine Ratio 11.3 (9-20) Glucose 95 (80-116) mg/dL Hemoglobin A1c (4.5-6.2) % Lactic Acid (0.4-2.2) mmol/L Calcium 7.7 L (8.6-10.2) mg/dL Phosphorus (2.6-4.6) mg/dL Magnesium (1.8-2.5) mg/dL Total Bilirubin 0.9 (0.1-1.3) mg/dL AST 31 H (5-25) IU/L ALT 16 D (12-36) U/L Alkaline Phosphatase 105 (56-112) IU/L Troponin I (<0.017-0.056) ng/mL NT-Pro-B Natriuret Pep (<=450) pg/mL Total Protein 6.3 (6.0-8.0) g/dL Albumin 2.1 L (3.2-4.6) g/dL Globulin 4.2 g/dL Albumin/Globulin Ratio 0.5 TSH, Ultra Sensitive (0.36-3.74) IU/mL Urine Color (YELLOW) Urine Appearance (CLEAR) Urine pH (5.0-6.5) Ur Specific [place] (1.010-1.025) Urine Protein (NEGATIVE) mg/dL Urine Glucose (UA) (NEGATIVE) mg/dL Urine Ketones (NEGATIVE) mg/dL Urine Occult Blood (NEGATIVE) Urine Nitrite (NEGATIVE) Urine Bilirubin (NEGATIVE) Urine Urobilinogen (NEGATIVE) mg/dL Ur Leukocyte Esterase (NEGATIVE) Urine RBC (0) Urine WBC (0) Ur Squamous Epith Cells (NS,R,O) Urine Bacteria (NS) Result Diagrams: 12/11/17 06:30 12/11/17 06:30 Cody Results Last 24 hrs: Microbiology 12/11/17 02:00 Stool Occult Blood (CODY) - Final Stool / Feces EKG INTERPRETATION Rhythm: NSR - Problem List (1) Pneumonia SNOMED Code(s): 148931973 ICD Code: J18.9 - PNEUMONIA, UNSPECIFIED ORGANISM Status: Acute Current Visit: Yes Qualifiers: Pneumonia type: due to unspecified organism (2) Anemia SNOMED Code(s): 847763378 ICD Code: D64.9 - ANEMIA, UNSPECIFIED Status: Acute Current Visit: Yes Qualifiers: Anemia type: iron deficiency (3) Obesity SNOMED Code(s): 230016985, 711181834 ICD Code: E66.9 - OBESITY, UNSPECIFIED Status: Chronic Current Visit: Yes Qualifiers: Obesity type: due to excess calories (4) Diabetes type 2, controlled SNOMED Code(s): 65877535 ICD Code: E11.9 - TYPE 2 DIABETES MELLITUS WITHOUT COMPLICATIONS Status: Chronic Current Visit: Yes Qualifiers: Diabetes mellitus half-way insulin use: with half-way use Chronic kidney disease stage: stage 2 (mild) (5) Cardiomyopathy SNOMED Code(s): 86172587 ICD Code: I42.9 - CARDIOMYOPATHY, UNSPECIFIED Status: Chronic Current Visit: Yes Qualifiers: Cardiomyopathy type: ischemic Qualified Code(s): I25.5 - Ischemic cardiomyopathy (6) H/O: CVA (cerebrovascular accident) SNOMED Code(s): 024374279 ICD Code: Z86.73 - PRSNL HX OF TIA (TIA), AND CEREB INFRC W/O RESID DEFICITS Status: Chronic Current Visit: Yes (7) Recurrent UTI (urinary tract infection) SNOMED Code(s): 807244623 ICD Code: N39.0 - URINARY TRACT INFECTION, SITE NOT SPECIFIED Status: Chronic Current Visit: Yes (8) HLD (hyperlipidemia) SNOMED Code(s): 76389363 ICD Code: E78.5 - HYPERLIPIDEMIA, UNSPECIFIED Status: Chronic Current Visit: Yes Qualifiers: Hyperlipidemia type: unspecified Qualified Code(s): E78.5 - Hyperlipidemia , unspecified (9) Peripheral vascular disease SNOMED Code(s): 034916816 ICD Code: I73.9 - PERIPHERAL VASCULAR DISEASE, UNSPECIFIED Status: Chronic Current Visit: Yes (10) Seizure disorder SNOMED Code(s): 144168387 ICD Code: G40.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, UNSP, NOT INTRACTABLE, WITHOUT STATUS EPILEPTICUS Status: Acute Current Visit: Yes Problem List Initiated/Reviewed/Updated: Yes Orders Last 24hrs: Active Orders 24 hr Category Date Time Status Patient Status [ADT] Routine ADT 12/11/17 02:22 Active Anticoag Warfarin Education *Q [RC] 08 Care 12/11/17 02:22 Active Bedrest Bedside Commode [RC] ASDIRECTED Care 12/11/17 02:22 Active Blood Glucose Check, Bedside [RC] QIDACANDBED Care 12/11/17 02:22 Active Diabetes Education [RC] Click to Edit Care 12/11/17 02:33 Active Height and Weight [RC] UPON Care 12/11/17 02:22 Active Insert Urinary Catheter [OM.PC] ONETIME Care 12/11/17 01:10 Ordered Intake and Output [RC] 06,14,22 Care 12/11/17 03:47 Active Notify Provider Vital Signs [RC] ASDIRECTED Care 12/11/17 02:27 Active Oxygen Therapy [RC] PRN Care 12/11/17 02:22 Active Pulse Oximetry [RC] PRN Care 12/11/17 02:27 Active Up With Assistance [RC] ASDIRECTED Care 12/11/17 02:22 Active VTE/DVT Education [RC] Per Unit Routine Care 12/11/17 02:22 Active Vital Signs [RC] 00,04,08,12,16,20 Care 12/11/17 02:22 Active Consistent Carbohydrate Diet [DIET] Diet 12/11/17 Breakfast Active CXR [Chest 1V Frontal] [CR] Stat Exams 12/10/17 23:29 Taken CULTURE BLOOD [BC] Routine Lab 12/11/17 00:40 Received CULTURE BLOOD [BC] Urgent Lab 12/10/17 23:28 Received CULTURE URINE [RM] Urgent Lab 12/10/17 23:28 Received Hemoccult [OCCULT BLOOD DIAGNOSTIC] [OP] Stat Lab 12/11/17 02:00 Ordered UA W/MICROSCOPIC [URIN] Urgent Lab 12/11/17 01:10 Ordered VANCOMYCIN TROUGH [CHEM] Timed Lab 12/13/17 22:30 Ordered Acetaminophen [Tylenol] Med 12/11/17 02:22 Active 650 mg PO Q4H PRN Baclofen [Lioresal] Med 12/11/17 09:00 Active 10 mg PO BID Cholecalciferol (Vitamin D3) [Vitamin D3] Med 12/11/17 09:00 Active 1,000 units PO DAILY Docusate Sodium [Colace] Med 12/11/17 02:22 Active 100 mg PO BID PRN Docusate Sodium/Sennosides [Senna Plus] Med 12/11/17 09:00 Active 1 tab PO BID Folic Acid Med 12/11/17 09:00 Active 1 mg PO DAILY Glucagon,Human Recombinant [GlucaGen] Med 12/11/17 02:34 Active 1 mg IM DAILY PRN Hydrocortisone Sod Succinate [Solu-CORTEF] Med 12/11/17 03:15 Active 50 mg IVPUSH Q6H Hypromellose [GenTeal Severe Dry Eye Relief] Med 12/11/17 09:00 Active 0 gm EYEBOTH BID Magnesium Hydroxide [Milk of Magnesia] Med 12/11/17 03:29 Active 30 ml PO BEDTIME PRN Multivitamins [Tab-A-Marv] Med 12/11/17 09:00 Active 1 tab PO DAILY Norepinephrine [Levophed] 4 mg Med 12/11/17 03:15 Active Dextrose 5% in Water 246 ml IV TITRATE Ondansetron [Zofran ODT] Med 12/11/17 02:22 Active 8 mg PO Q6H PRN Ondansetron [Zofran] Med 12/11/17 02:22 Active 8 mg IV Q4H PRN PARoxetine [Paxil] Med 12/11/17 09:00 Active 30 mg PO DAILY Pantoprazole [ProTONIX] Med 12/11/17 07:30 Active 40 mg PO ACBREAKFAST Piperacillin/Tazobactam [Zosyn] 2.25 gm Med 12/11/17 06:00 Active Sodium Chloride 0.9% [Normal Saline] 50 ml IV Q6H Potassium Chloride [Klor-Con 10] Med 12/11/17 09:00 Active 10 meq PO BIDPC Simvastatin [Zocor] Med 12/11/17 21:00 Active 20 mg PO BEDTIME Sodium Chloride 0.9% [Normal Saline] 1,000 ml Med 12/10/17 23:45 Active IV ASDIRECTED Vancomycin 1,000 mg Med 12/11/17 23:00 Active Vancomycin 750 mg Sodium Chloride 0.9% [Normal Saline] 500 ml IV Q24H Vancomycin Pharmacy to Dose [Pharmacy to Dose - Med 12/11/17 03:00 Pending Vancomycin] 1 dose .XX ASDIRECTED levETIRAcetam [Keppra] Med 12/11/17 09:00 Active 1,000 mg PO BID metFORMIN [Glucophage] Med 12/11/17 08:00 Active 1,000 mg PO BIDMEALS Glucose Management Sub Q Reflex [OM.PC] Click to Edit Oth 12/11/17 02:22 Ordered Resuscitation Status Routine Resus Stat 12/11/17 02:22 Ordered EKG 12 Lead [EK] Routine Ther 12/10/17 23:29 Ordered Medication Orders Acetaminophen (Tylenol) 650 mg PO Q4H PRN PRN Reason: Pain (Mild 1-3)/fever Artificial Tears (Genteal Severe Dry Eye Relief) 0 gm EYEBOTH BID [facility] Last Admin: 12/11/17 08:34 Dose: 1 applic Baclofen (Lioresal) 10 mg PO BID [facility] Last Admin: 12/11/17 08:29 Dose: 10 mg Cholecalciferol (Vitamin D3) 1,000 units PO DAILY [facility] Last Admin: 12/11/17 08:30 Dose: 1,000 units Docusate Sodium (Colace) 100 mg PO BID PRN PRN Reason: Constipation Folic Acid (Folic Acid) 1 mg PO DAILY [facility] Last Admin: 12/11/17 08:29 Dose: 1 mg Glucagon (Glucagen) 1 mg IM DAILY PRN PRN Reason: Hypoglycemia Hydrocortisone Sodium Succinate (Solu-Cortef) 50 mg IVPUSH Q6H [facility] Last Admin: 12/11/17 08:35 Dose: 50 mg Admin: 12/11/17 04:41 Dose: 50 mg Sodium Chloride (Normal Saline) 1,000 mls @ 100 mls/hr IV ASDIRECTED [facility] Last Infusion: 12/11/17 01:20 Dose: 100 mls/hr Admin: 12/10/17 23:35 Dose: 300 mls/hr Norepinephrine Bitartrate 4 mg (/ Dextrose/Water) 250 mls @ 7.5 mls/hr IV TITRATE MARCELO; Protocol Piperacillin Sod/Tazobactam (Sod 2.25 gm/ Sodium Chloride) 50 mls @ 100 mls/hr IV Q6H [facility] Last Admin: 12/11/17 06:37 Dose: 100 mls/hr Vancomycin HCl 1,000 mg/Vancomycin HCl 750 mg/ Sodium Chloride 500 mls @ 250 mls/hr IV Q24H [facility] Levetiracetam (Keppra) 1,000 mg PO BID [facility] Last Admin: 12/11/17 08:29 Dose: 1,000 mg Magnesium Hydroxide (Milk Of Magnesia) 30 ml PO BEDTIME PRN PRN Reason: Constipation Metformin HCl (Glucophage) 1,000 mg PO BIDMEALS [facility] Last Admin: 12/11/17 08:29 Dose: 1,000 mg Multivitamins/Minerals/Vitamin C (Tab-A-Marv) 1 tab PO DAILY [facility] Last Admin: 12/11/17 08:30 Dose: 1 tab Ondansetron HCl (Zofran Odt) 8 mg PO Q6H PRN PRN Reason: nausea, able to take PO Ondansetron HCl (Zofran) 8 mg IV Q4H PRN PRN Reason: Nausea/Vomiting Pantoprazole Sodium (Protonix) 40 mg PO ACBREAKFAST [facility] Last Admin: 12/11/17 06:39 Dose: 40 mg Paroxetine HCl (Paxil) 30 mg PO DAILY [facility] Last Admin: 12/11/17 08:30 Dose: 30 mg Potassium Chloride (Klor-Con 10) 10 meq PO BIDPC [facility] Last Admin: 12/11/17 08:29 Dose: 10 meq Senna/Docusate Sodium (Senna Plus) 1 tab PO BID [facility] Last Admin: 12/11/17 08:30 Dose: 1 tab Simvastatin (Zocor) 20 mg PO BEDTIME [facility] Vancomycin HCl (Pharmacy To Dose - Vancomycin) 1 dose .XX ASDIRECTED [facility] Assessment/Plan Comment:: My assessment of the chest x-ray is that there might be a left-sided infiltrate. And with a high lactic acid and lethargy, I've elected to start him on triple therapy. As recent as a month ago ,he was on antibiotics (Levaquin), and being a resident of a long-term care facility, I think it would make the argument for it. Blood cultures and urine cultures will be sent, and I agree with fluid replacement with crystalloids. The possibility of a febrile nonhemolytic transfusion reaction or transfusion associated sepsis was entertained. It is certainly possible,but unlikely.This will be probably diagnosis of exclusion.
[2017-12-11] MEDS ORDERED: Levofloxacin/Dextrose 5%-Water 500 MG in Premix Bag 1 BAG IV SCH (09:30)
[2017-12-11] MEDS ORDERED: Levofloxacin/Dextrose 5%-Water 750 MG in Premix Bag 1 BAG IV SCH (10:00)
[2017-12-11] MEDS: Sodium Chloride 0.9% 1,000 ML IV SCH (10:31)
[2017-12-11] MEDS: Piperacillin/Tazobactam 4.5 GM in Sodium Chloride 0.9% 100 ML IV SCH ×2 (12:34→17:31)
--- NOTE | 2017-12-11 13:00 | CR ---
INDICATION: Chest pain. CHEST: An AP upright view of the chest was obtained times two. The chest was rotated to the right. The heart did not appear to be grossly enlarged, allowing for poor inspiration and AP positioning. No definite CHF is seen. Somewhat heavy markings are noted in the perihilar area on the left and into the lung base, similar to the previous examination, most likely fibrotic in nature, but making it difficult to entirely exclude minimal patchy bronchopneumonia in that area. More likely, findings are on the basis of fibrosis, as no significant change is noted compared with 05/09/2015. A Port-A-Cath is noted with coils overlying the area of the medial left clavicle. Its tip lies at the SVC at the level of the aortic arch. Report was called to Dr. Sweta serrano [email or web address], 12/11/2017. MATEUS
[2017-12-11] MEDS ORDERED: Warfarin Sliding Scale PO SCH (16:00)
[2017-12-11] MEDS ORDERED: Warfarin 3 MG Tab PO SCH (16:30)
[2017-12-11] MEDS: Sodium Chloride 0.9% 10 ML Syringe FLUSH PRN ×2 (19:13→21:07)
[2017-12-11] MEDS ORDERED: Simvastatin 20 MG Tab PO SCH (21:00)
[2017-12-11] MEDS ORDERED: Vancomycin 1,000 MG, Vancomycin 750 MG in Sodium Chloride 0.9% 500 ML IV SCH (23:00)
[2017-12-12] MEDS: Piperacillin/Tazobactam 4.5 GM in Sodium Chloride 0.9% 100 ML IV SCH ×2 (00:58→05:34)
[2017-12-12] MEDS: Sodium Chloride 0.9% 10 ML Syringe FLUSH PRN ×4 (00:59→06:12)
[2017-12-12] MEDS: Hydrocortisone Sodium Succinate 100 MG/2 ML SDV IVPUSH SCH (03:58)
[2017-12-12] MEDS: Pantoprazole 40 MG Tab.CR PO SCH ×2 (05:45→10:42)
[2017-12-12] MEDS: Folic Acid 1 MG Tab PO SCH (08:42)
[2017-12-12] MEDS: HYPROMELLOSE 0.3% EYEBOTH SCH ×2 (08:42→21:34)
[2017-12-12] MEDS: Cholecalciferol (Vitamin D3) 1,000 Unit Tab PO SCH (08:43)
[2017-12-12] MEDS: Multivitamin Tab PO SCH (08:43)
[2017-12-12] MEDS: levETIRAcetam 500 MG Tab PO SCH ×2 (08:43→20:28)
[2017-12-12] MEDS: Potassium Chloride 10 MEQ Tab.ER PO SCH ×2 (08:43→20:28)
[2017-12-12] MEDS: Piperacillin/Tazobactam 3.375 GM in Sodium Chloride 0.9% 50 ML IV SCH ×2 (13:29→17:30)
--- NOTE | 2017-12-12 16:35 | PCM.PN ---
- General Info Date of Service: 12/12/17 Subjective Update: Patient is a 77-year-old male admitted on 12/11/17 after transfusion for anemia of 2 units packed red blood cells on 12/10. He developed a fever a few hours later and came into the emergency department. Was seen and evaluated and treated aggressively for potential sepsis/shock/pneumonia with triple antibiotic therapy appropriately. Transfusion reaction labs were sent yesterday afternoon and thus far have been negative. The patient's clinical condition has improved and he has defervesced although he continues to be hypotensive. He never received any pressors. Creatinine had been stable but now has bumped up to 2.0 this morning. The patient is aphasic. He had received hydrocortisone for the potential issue of adrenal insufficiency which made no difference so I stopped that this morning. Because of his lethargy sedating meds have been held. When I see him today he makes gestures and nods and shakes his head but doesn't seem to be consistent with the questions I'm asking. Functional Status: Reports: Pain Controlled, Tolerating Diet, Other (patient aphasic, nonverbal.) - Patient Data Vitals - Most Recent: Last Vital Signs Temp 36.9 C 12/12/17 12:00 Pulse 69 12/12/17 12:00 Resp 18 12/12/17 12:00 BP 99/37 L 12/12/17 12:00 Pulse Ox 99 12/12/17 12:00 Weight - Most Recent: 116.573 kg I&O - Last 24 Hours: Intake & Output 12/12/17 12/12/17 12/12/17 06:59 14:59 22:59 Intake Total 400 50 Balance 400 50 Lab Results Last 24 Hours: Laboratory Results - last 24 hr 12/11/17 12/11/17 12/11/17 Range/Units 14:55 14:55 17:49 WBC (4.5-12.0) X10-3/uL RBC (4.30-5.75) x10(6)uL Hgb (11.5-15.5) g/dL Hct (30.0-51.3) % MCV (80-96) fL MCH (27.7-33.6) pg MCHC (32.2-35.4) g/dL RDW (11.5-15.5) % Plt Count (125-369) X10(3)uL PT (8.7-11.1) INR (0.89-1.13) Sodium (135-145) mmol/L Potassium (3.5-5.3) mmol/L Chloride (100-110) mmol/L Carbon Dioxide (21-32) mmol/L BUN (7-18) mg/dL Creatinine (0.70-1.30) mg/dL Est Cr Clr Drug Dosing mL/min Estimated GFR (MDRD) (>60) BUN/Creatinine Ratio (9-20) Glucose (80-116) mg/dL POC Glucose 184 H (80-116) mg/dL Lactic Acid (0.4-2.2) mmol/L Calcium (8.6-10.2) mg/dL Total Bilirubin (0.1-1.3) mg/dL AST (5-25) IU/L ALT (12-36) U/L Alkaline Phosphatase (56-112) IU/L Lactate Dehydrogenase (85-227) U/L C-Reactive Protein (0.5-0.9) mg/dL Total Protein (6.0-8.0) g/dL Albumin (3.2-4.6) g/dL Globulin g/dL Albumin/Globulin Ratio Post-Tx Product Bld Type A POSITIVE Tx React Gram Stain Both units nos Reaction Clerical Check Acceptable Pre-Trans Blood Type A positive A positive Pre-Trans Antibody Scrn TNP Pre-Tx Ab Screen (Gel) Negative Pre-Trans XM Immed Spin Compatible Pre-Trans Xmatch [facility] Compatible Post-Trans Blood Type A positive A positive Post-Trans Antibody Scrn TNP Post-Tx Ab Screen (Gel) Negative Post-Trams XM Immed Spin Compatible Post-Trans Xmatch [facility] Compatible 12/11/17 12/12/17 12/12/17 Range/Units 22:13 06:11 06:14 WBC 3.6 L (4.5-12.0) X10-3/uL RBC 3.30 L (4.30-5.75) x10(6)uL Hgb 9.0 L (11.5-15.5) g/dL Hct 29.4 L (30.0-51.3) % MCV 89.0 (80-96) fL MCH 27.4 L (27.7-33.6) pg MCHC 30.8 L (32.2-35.4) g/dL RDW 16.6 H (11.5-15.5) % Plt Count 147 (125-369) X10(3)uL PT (8.7-11.1) INR (0.89-1.13) Sodium (135-145) mmol/L Potassium (3.5-5.3) mmol/L Chloride (100-110) mmol/L Carbon Dioxide (21-32) mmol/L BUN (7-18) mg/dL Creatinine (0.70-1.30) mg/dL Est Cr Clr Drug Dosing mL/min Estimated GFR (MDRD) (>60) BUN/Creatinine Ratio (9-20) Glucose (80-116) mg/dL POC Glucose 239 H 172 H (80-116) mg/dL Lactic Acid (0.4-2.2) mmol/L Calcium (8.6-10.2) mg/dL Total Bilirubin (0.1-1.3) mg/dL AST (5-25) IU/L ALT (12-36) U/L Alkaline Phosphatase (56-112) IU/L Lactate Dehydrogenase (85-227) U/L C-Reactive Protein (0.5-0.9) mg/dL Total Protein (6.0-8.0) g/dL Albumin (3.2-4.6) g/dL Globulin g/dL Albumin/Globulin Ratio Post-Tx Product Bld Type Tx React Gram Stain Reaction Clerical Check Pre-Trans Blood Type Pre-Trans Antibody Scrn Pre-Tx Ab Screen (Gel) Pre-Trans XM Immed Spin Pre-Trans Xmatch [facility] Post-Trans Blood Type Post-Trans Antibody Scrn Post-Tx Ab Screen (Gel) Post-Trams XM Immed Spin Post-Trans Xmatch [facility] 12/12/17 12/12/17 12/12/17 Range/Units 06:14 06:14 06:14 WBC (4.5-12.0) X10-3/uL RBC (4.30-5.75) x10(6)uL Hgb (11.5-15.5) g/dL Hct (30.0-51.3) % MCV (80-96) fL MCH (27.7-33.6) pg MCHC (32.2-35.4) g/dL RDW (11.5-15.5) % Plt Count (125-369) X10(3)uL PT (8.7-11.1) INR (0.89-1.13) Sodium 143 (135-145) mmol/L Potassium 4.1 (3.5-5.3) mmol/L Chloride 107 (100-110) mmol/L Carbon Dioxide 21 (21-32) mmol/L BUN 27 H D (7-18) mg/dL Creatinine 2.0 H* (0.70-1.30) mg/dL Est Cr Clr Drug Dosing 29.93 mL/min Estimated GFR (MDRD) 33 L (>60) BUN/Creatinine Ratio 13.5 (9-20) Glucose 168 H (80-116) mg/dL POC Glucose (80-116) mg/dL Lactic Acid 7.8 H* (0.4-2.2) mmol/L Calcium 7.8 L (8.6-10.2) mg/dL Total Bilirubin 0.5 (0.1-1.3) mg/dL AST 23 D (5-25) IU/L ALT 20 D (12-36) U/L Alkaline Phosphatase 91 (56-112) IU/L Lactate Dehydrogenase (85-227) U/L C-Reactive Protein 4.9 H* (0.5-0.9) mg/dL Total Protein 6.1 (6.0-8.0) g/dL Albumin 2.0 L (3.2-4.6) g/dL Globulin 4.1 g/dL Albumin/Globulin Ratio 0.5 Post-Tx Product Bld Type Tx React Gram Stain Reaction Clerical Check Pre-Trans Blood Type Pre-Trans Antibody Scrn Pre-Tx Ab Screen (Gel) Pre-Trans XM Immed Spin Pre-Trans Xmatch [facility] Post-Trans Blood Type Post-Trans Antibody Scrn Post-Tx Ab Screen (Gel) Post-Trams XM Immed Spin Post-Trans Xmatch [facility] 12/12/17 12/12/17 12/12/17 Range/Units 06:14 06:14 13:20 WBC (4.5-12.0) X10-3/uL RBC (4.30-5.75) x10(6)uL Hgb (11.5-15.5) g/dL Hct (30.0-51.3) % MCV (80-96) fL MCH (27.7-33.6) pg MCHC (32.2-35.4) g/dL RDW (11.5-15.5) % Plt Count (125-369) X10(3)uL PT 18.3 H (8.7-11.1) INR 1.90 H (0.89-1.13) Sodium (135-145) mmol/L Potassium (3.5-5.3) mmol/L Chloride (100-110) mmol/L Carbon Dioxide (21-32) mmol/L BUN (7-18) mg/dL Creatinine (0.70-1.30) mg/dL Est Cr Clr Drug Dosing mL/min Estimated GFR (MDRD) (>60) BUN/Creatinine Ratio (9-20) Glucose (80-116) mg/dL POC Glucose 238 H (80-116) mg/dL Lactic Acid (0.4-2.2) mmol/L Calcium (8.6-10.2) mg/dL Total Bilirubin (0.1-1.3) mg/dL AST (5-25) IU/L ALT (12-36) U/L Alkaline Phosphatase (56-112) IU/L Lactate Dehydrogenase 137 (85-227) U/L C-Reactive Protein (0.5-0.9) mg/dL Total Protein (6.0-8.0) g/dL Albumin (3.2-4.6) g/dL Globulin g/dL Albumin/Globulin Ratio Post-Tx Product Bld Type Tx React Gram Stain Reaction Clerical Check Pre-Trans Blood Type Pre-Trans Antibody Scrn Pre-Tx Ab Screen (Gel) Pre-Trans XM Immed Spin Pre-Trans Xmatch [facility] Post-Trans Blood Type Post-Trans Antibody Scrn Post-Tx Ab Screen (Gel) Post-Trams XM Immed Spin Post-Trans Xmatch [facility] Results Last 24 Hours: Microbiology 12/11/17 01:10 Urine Culture - Preliminary Urine, Voided NO GROWTH AFTER 1 DAY 12/11/17 00:40 Aerobic Blood Culture - Preliminary Blood - Arm, Left NO GROWTH AFTER 1 DAY Anaerobic Blood Culture - Preliminary NO GROWTH AFTER 1 DAY 12/10/17 00:00 Aerobic Blood Culture - Preliminary Blood NO GROWTH AFTER 1 DAY Anaerobic Blood Culture - Preliminary NO GROWTH AFTER 1 DAY Med Orders - Current: Current Medications Acetaminophen (Tylenol) 650 mg PO Q4H PRN PRN Reason: Pain (Mild 1-3)/fever Artificial Tears (Genteal Severe Dry Eye Relief) 0 gm EYEBOTH BID [facility] Last Admin: 12/12/17 08:42 Dose: 1 applic Baclofen (Lioresal) 10 mg PO BID [facility] Last Admin: 12/11/17 21:06 Dose: 10 mg Cholecalciferol (Vitamin D3) 1,000 units PO DAILY [facility] Last Admin: 12/12/17 08:43 Dose: 1,000 units Docusate Sodium (Colace) 100 mg PO BID PRN PRN Reason: Constipation Folic Acid (Folic Acid) 1 mg PO DAILY [facility] Last Admin: 12/12/17 08:42 Dose: 1 mg Glucagon (Glucagen) 1 mg IM DAILY PRN PRN Reason: Hypoglycemia Norepinephrine Bitartrate 4 mg (/ Dextrose/Water) 250 mls @ 7.5 mls/hr IV TITRATE [facility]; Protocol Sodium Chloride (Normal Saline) 1,000 mls @ 100 mls/hr IV ASDIRECTED [facility] Piperacillin Sod/Tazobactam (Sod 3.375 gm/ Sodium Chloride) 50 mls @ 100 mls/ hr IV Q6H [facility] Last Admin: 12/12/17 13:29 Dose: 100 mls/hr Levofloxacin/Dextrose 750 mg/ (Premix) 150 mls @ 100 mls/hr IV Q48H [facility] Levetiracetam (Keppra) 1,000 mg PO BID [facility] Last Admin: 12/12/17 08:43 Dose: 1,000 mg Magnesium Hydroxide (Milk Of Magnesia) 30 ml PO BEDTIME PRN PRN Reason: Constipation Multivitamins/Minerals/Vitamin C (Tab-A-Marv) 1 tab PO DAILY [facility] Last Admin: 12/12/17 08:43 Dose: 1 tab Ondansetron HCl (Zofran Odt) 8 mg PO Q6H PRN PRN Reason: nausea, able to take PO Ondansetron HCl (Zofran) 8 mg IV Q4H PRN PRN Reason: Nausea/Vomiting Pantoprazole Sodium (Protonix) 40 mg PO ACBREAKFAST [facility] Last Admin: 12/12/17 10:42 Dose: Not Given Paroxetine HCl (Paxil) 30 mg PO DAILY [facility] Last Admin: 12/12/17 08:43 Dose: 30 mg Potassium Chloride (Klor-Con 10) 10 meq PO BIDPC [facility] Last Admin: 12/12/17 08:43 Dose: 10 meq Senna/Docusate Sodium (Senna Plus) 1 tab PO BID [facility] Last Admin: 12/11/17 21:06 Dose: 1 tab Simvastatin (Zocor) 20 mg PO BEDTIME [facility] Last Admin: 12/11/17 21:07 Dose: 20 mg Sodium Chloride (Saline Flush) 10 ml FLUSH ASDIRECTED PRN PRN Reason: Keep Vein Open Last Admin: 12/12/17 06:12 Dose: 10 ml Warfarin Sodium (Coumadin Sliding Scale) 1 each PO ASDIRECTED [facility] Discontinued Medications Acetaminophen (Tylenol Arthritis Pain) 650 mg PO Q4H PRN PRN Reason: Pain Hydrocortisone Sodium Succinate (Solu-Cortef) 50 mg IVPUSH Q6H [facility] Last Admin: 12/12/17 03:58 Dose: 50 mg Piperacillin Sod/Tazobactam (Sod 3.375 gm/ Sodium Chloride) 50 mls @ 100 mls/ hr IV Q6H [facility] Last Admin: 12/11/17 00:08 Dose: 100 mls/hr Sodium Chloride (Normal Saline) 1,000 mls @ 100 mls/hr IV ASDIRECTED [facility] Last Admin: 12/11/17 10:31 Dose: 100 mls/hr Vancomycin HCl 1.25 gm/ Sodium (Chloride) 250 mls @ 167 mls/hr IV Q24H [facility] Last Admin: 12/11/17 01:25 Dose: 167 mls/hr Piperacillin Sod/Tazobactam (Sod 2.25 gm/ Sodium Chloride) 50 mls @ 100 mls/hr IV Q6H [facility] Last Admin: 12/11/17 21:30 Dose: Not Given Piperacillin Sod/Tazobactam (Sod 2.25 gm/ Sodium Chloride) 50 mls @ 100 mls/hr IV Q6H [facility] Last Admin: 12/11/17 06:37 Dose: 100 mls/hr Vancomycin HCl 1,000 mg/Vancomycin HCl 750 mg/ Sodium Chloride 500 mls @ 250 mls/hr IV Q24H [facility] Last Admin: 12/11/17 22:36 Dose: 250 mls/hr Levofloxacin/Dextrose 500 mg/ (Premix) 100 mls @ 100 mls/hr IV Q24H [facility] Levofloxacin/Dextrose 750 mg/ (Premix) 150 mls @ 100 mls/hr IV Q24H [facility] Last Admin: 12/11/17 10:33 Dose: 100 mls/hr Piperacillin Sod/Tazobactam (Sod 4.5 gm/ Sodium Chloride) 100 mls @ 200 mls/hr IV Q6H [facility] Last Admin: 12/12/17 05:34 Dose: 200 mls/hr Metformin HCl (Glucophage) 1,000 mg PO BIDMEALS [facility] Last Admin: 12/11/17 17:27 Dose: 1,000 mg Warfarin Sodium (Coumadin) 3 mg PO 1600 [facility] Stop: 12/11/17 16:31 Last Admin: 12/11/17 17:27 Dose: 3 mg Warfarin Sodium (Coumadin) 5 mg PO 1600 [facility] Stop: 12/12/17 16:01 - Exam General: Alert, Cooperative HEENT: Pupils Equal, Pupils Reactive Neck: Supple Lungs: Clear to Auscultation, Normal Respiratory Effort Cardiovascular: Regular Rate, Regular Rhythm, No Murmurs GI/Abdominal Exam: Normal Bowel Sounds, Soft, Non-Tender, No Distention Back Exam: Normal Inspection Extremities: Pedal Edema (trace) - Problem List & Annotations (1) SIRS (systemic inflammatory response syndrome) SNOMED Code(s): 100959635 Code(s): R65.10 - SIRS OF NON-INFECTIOUS ORIGIN W/O ACUTE ORGAN DYSFUNCTION Status: Acute Current Visit: Yes Annotation/Comment:: I agree with the decision to start the patient on triple antibiotic therapy initially. However, the patient's blood cultures and urine cultures have so far been negative. Vital signs have improved and the patient has no cough and no shortness of breath. At this point given his worsening renal function I'm going to discontinue the Zosyn and de-escalate the vancomycin. Continue Levaquin at renal doses. The question of transfusion reaction with either acute hemolytic transfusion reaction, or febrile nonhemolytic transfusion reaction is still a possibility. The patient's LDH is negative, JAYCEE is negative, haptoglobin still pending. Lactic acid was up to 7.8 and CRP 4.9. We'll continue aggressive treatment for the time being and follow labs. (2) Anemia SNOMED Code(s): 337750642 Code(s): D64.9 - ANEMIA, UNSPECIFIED Status: Acute Current Visit: Yes Qualifiers: Anemia type: iron deficiency Annotation/Comment:: I need to review prior hx of anemia and transfusions. Hemoglobin currently stable. No evidence of DIC. (3) H/O: CVA (cerebrovascular accident) SNOMED Code(s): 917349899 Code(s): Z86.73 - PRSNL HX OF TIA (TIA), AND CEREB INFRC W/O RESID DEFICITS Status: Chronic Current Visit: Yes Annotation/Comment:: Post-stroke cares. (4) HLD (hyperlipidemia) SNOMED Code(s): 98046110 Code(s): E78.5 - HYPERLIPIDEMIA, UNSPECIFIED Status: Chronic Current Visit: Yes Qualifiers: Hyperlipidemia type: unspecified Qualified Code(s): E78.5 - Hyperlipidemia , unspecified Annotation/Comment:: Continue zocor. (5) Peripheral vascular disease SNOMED Code(s): 851011143 Code(s): I73.9 - PERIPHERAL VASCULAR DISEASE, UNSPECIFIED Status: Chronic Current Visit: Yes Annotation/Comment:: Continue home meds. (6) Lethargy SNOMED Code(s): 082568904 Code(s): R53.83 - OTHER FATIGUE Status: Acute Current Visit: No Annotation/Comment:: Improved, but patient now yelling out and unable to communicate due to aphasia. Continue to work with patient's nonverbal cues and comfort measures. (7) History of DVT (deep vein thrombosis) SNOMED Code(s): 012134416 Code(s): Z86.718 - PERSONAL HISTORY OF OTHER VENOUS THROMBOSIS AND EMBOLISM Status: Acute Current Visit: Yes Annotation/Comment:: Continue anticoagulation. (8) DM2 (diabetes mellitus, type 2) SNOMED Code(s): 72763031 Code(s): E11.9 - TYPE 2 DIABETES MELLITUS WITHOUT COMPLICATIONS Status: Acute Current Visit: Yes Annotation/Comment:: We'll hold metformin for the time being given patient's elevated lactic acid. This could also be a possible culprit. (9) Acute kidney injury superimposed on chronic kidney disease SNOMED Code(s): 40425420 Code(s): N17.9 - ACUTE KIDNEY FAILURE, UNSPECIFIED; N18.9 - CHRONIC KIDNEY DISEASE, UNSPECIFIED Status: Acute Current Visit: Yes Annotation/Comment: : Creatinine was 1.6 at baseline and went down to 1.5 and now is at 2.0. Follow daily. Avoid renal toxic drugs. Antibiotics adjusted as above. We will give 1 L normal saline very slowly to prevent fluid overload. (10) Hypomagnesemia SNOMED Code(s): 523429447 Code(s): E83.42 - HYPOMAGNESEMIA Status: Acute Current Visit: Yes Annotation/Comment:: Replace IV. Follow daily. (11) Diarrhea SNOMED Code(s): 77164930 Code(s): R19.7 - DIARRHEA, UNSPECIFIED Status: Acute Current Visit: Yes Annotation/Comment:: Patient has been getting laxatives orally. We'll discontinue these at this time. if loose stools persist, consider C diff. - Problem List Review Problem List Initiated/Reviewed/Updated: Yes - My Orders Last 24 Hours: My Active Orders 12/12/17 06:14 HAPTOGLOBIN Stat 12/12/17 07:45 Sodium Chloride 0.9% [Normal Saline] 1,000 ml IV ASDIRECTED 12/12/17 12:00 Piperacillin/Tazobactam [Zosyn] 3.375 gm Sodium Chloride 0.9% [Normal Saline] 50 ml IV Q6H 12/13/17 05:11 CBC WITH AUTO DIFF [HEME] AM COMPREHENSIVE METABOLIC PN,CMP [CHEM] AM CRP [C-REACTIVE PROTEIN] [CHEM] AM
[2017-12-12] MEDS: Sodium Chloride 0.9% 1,000 ML IV SCH (17:26)
[2017-12-12] MEDS: Warfarin 5 MG Tab PO SCH ×2 (17:43→18:22)
[2017-12-12] MEDS: Ferrous Sulfate 325 MG Tab PO SCH (20:28)
[2017-12-12] MEDS ORDERED: traMADol 50 MG Tab PO SCH (21:00)
[2017-12-13] MEDS: Piperacillin/Tazobactam 3.375 GM in Sodium Chloride 0.9% 50 ML IV SCH ×4 (00:08→18:49)
[2017-12-13] MEDS: Sodium Chloride 0.9% 1,000 ML IV SCH (03:28)
[2017-12-13] MEDS: Multivitamin Tab PO SCH (08:59)
[2017-12-13] MEDS: Pantoprazole 40 MG Tab.CR PO SCH (08:59)
[2017-12-13] MEDS: levETIRAcetam 500 MG Tab PO SCH ×2 (09:01→20:49)
[2017-12-13] MEDS: HYPROMELLOSE 0.3% EYEBOTH SCH ×2 (09:01→20:50)
[2017-12-13] MEDS: Folic Acid 1 MG Tab PO SCH (09:01)
[2017-12-13] MEDS: Cholecalciferol (Vitamin D3) 1,000 Unit Tab PO SCH (09:02)
[2017-12-13] MEDS: Baclofen 10 MG Tab PO SCH ×2 (09:02→20:49)
[2017-12-13] MEDS: Potassium Chloride 10 MEQ Tab.ER PO SCH ×2 (09:02→18:26)
[2017-12-13] MEDS: Ferrous Sulfate 325 MG Tab PO SCH ×2 (09:11→20:50)
[2017-12-13] MEDS ORDERED: Levofloxacin/Dextrose 5%-Water 750 MG in Premix Bag 1 BAG IV SCH (10:00)
[2017-12-13] MEDS: Sodium Chloride 0.9% 10 ML Syringe FLUSH PRN (11:02)
--- NOTE | 2017-12-13 12:27 | PCM.PN ---
- General Info Date of Service: 12/13/17 Subjective Update: Patient is cheerful and cooperative this morning. Awake and alert. Yes or no responses are more appropriate today. Patient denies chest pain, shortness of breath, nausea, vomiting, abdominal pain. When I asked him if he is feeling better or worse than yesterday he gives me a thumbs up. Had some behavioral issues yesterday with outbursts of yelling and agitation. I restarted his tramadol last evening and this seemed to help him sleep better. Talked to his daughter today Ariana who says he has a lot of chronic back pain and I'm going to increase the frequency of pain medication to help with comfort. - Patient Data Vitals - Most Recent: Last Vital Signs Temp 36.5 C 12/13/17 08:00 Pulse 74 12/13/17 08:00 Resp 22 H 12/13/17 08:00 BP 79/46 L 12/13/17 08:00 Pulse Ox 95 12/13/17 08:00 Weight - Most Recent: 116.573 kg I&O - Last 24 Hours: Intake & Output 12/12/17 12/13/17 12/13/17 22:59 06:59 14:59 Intake Total 609 857 Balance 609 857 Lab Results Last 24 Hours: Laboratory Results - last 24 hr 12/12/17 12/12/17 12/12/17 Range/Units 13:20 18:26 20:34 WBC (4.5-12.0) X10-3/uL RBC (4.30-5.75) x10(6)uL Hgb (11.5-15.5) g/dL Hct (30.0-51.3) % MCV (80-96) fL MCH (27.7-33.6) pg MCHC (32.2-35.4) g/dL RDW (11.5-15.5) % Plt Count (125-369) X10(3)uL MPV (7.4-10.4) fL Neut % (Auto) (46-82) % Lymph % (Auto) (13-37) % [place] % (Auto) (4-12) % Eos % (Auto) (1.0-5.0) % Baso % (Auto) (0-2) % Neut # (Auto) (1.6-8.3) # Lymph # (Auto) (0.6-5.0) # [place] # (Auto) (0.0-1.3) # Eos # (Auto) (0.0-0.8) # Baso # (Auto) (0.0-0.2) # PT (8.7-11.1) INR (0.89-1.13) Sodium (135-145) mmol/L Potassium (3.5-5.3) mmol/L Chloride (100-110) mmol/L Carbon Dioxide (21-32) mmol/L BUN (7-18) mg/dL Creatinine (0.70-1.30) mg/dL Est Cr Clr Drug Dosing mL/min Estimated GFR (MDRD) (>60) BUN/Creatinine Ratio (9-20) Glucose (80-116) mg/dL POC Glucose 238 H 101 D 136 H (80-116) mg/dL Calcium (8.6-10.2) mg/dL Magnesium (1.8-2.5) mg/dL Total Bilirubin (0.1-1.3) mg/dL AST (5-25) IU/L ALT (12-36) U/L Alkaline Phosphatase (56-112) IU/L C-Reactive Protein (0.5-0.9) mg/dL Total Protein (6.0-8.0) g/dL Albumin (3.2-4.6) g/dL Globulin g/dL Albumin/Globulin Ratio 12/13/17 12/13/17 12/13/17 Range/Units 06:40 06:40 06:40 WBC 3.9 L (4.5-12.0) X10-3/uL RBC 3.20 L (4.30-5.75) x10(6)uL Hgb 9.1 L (11.5-15.5) g/dL Hct 28.2 L (30.0-51.3) % MCV 88.1 (80-96) fL MCH 28.3 (27.7-33.6) pg MCHC 32.1 L (32.2-35.4) g/dL RDW 16.8 H (11.5-15.5) % Plt Count 138 (125-369) X10(3)uL MPV 7.5 (7.4-10.4) fL Neut % (Auto) 52.8 (46-82) % Lymph % (Auto) 29.9 (13-37) % [place] % (Auto) 13.7 H (4-12) % Eos % (Auto) 3 (1.0-5.0) % Baso % (Auto) 1 (0-2) % Neut # (Auto) 2.1 (1.6-8.3) # Lymph # (Auto) 1.2 (0.6-5.0) # [place] # (Auto) 0.5 (0.0-1.3) # Eos # (Auto) 0.1 (0.0-0.8) # Baso # (Auto) 0.0 (0.0-0.2) # PT 16.8 H (8.7-11.1) INR 1.74 H (0.89-1.13) Sodium 144 (135-145) mmol/L Potassium 3.3 L (3.5-5.3) mmol/L Chloride 110 (100-110) mmol/L Carbon Dioxide 26 (21-32) mmol/L BUN 22 H (7-18) mg/dL Creatinine 1.4 H (0.70-1.30) mg/dL Est Cr Clr Drug Dosing 42.75 mL/min Estimated GFR (MDRD) 49 L (>60) BUN/Creatinine Ratio 15.7 (9-20) Glucose 94 (80-116) mg/dL POC Glucose (80-116) mg/dL Calcium 7.8 L (8.6-10.2) mg/dL Magnesium 1.6 L (1.8-2.5) mg/dL Total Bilirubin 0.8 (0.1-1.3) mg/dL AST 24 (5-25) IU/L ALT 20 (12-36) U/L Alkaline Phosphatase 81 (56-112) IU/L C-Reactive Protein (0.5-0.9) mg/dL Total Protein 6.0 (6.0-8.0) g/dL Albumin 2.1 L (3.2-4.6) g/dL Globulin 3.9 g/dL Albumin/Globulin Ratio 0.5 /14/18 Range/Units 06:40 WBC (4.5-12.0) X10-3/uL RBC (4.30-5.75) x10(6)uL Hgb (11.5-15.5) g/dL Hct (30.0-51.3) % MCV (80-96) fL MCH (27.7-33.6) pg MCHC (32.2-35.4) g/dL RDW (11.5-15.5) % Plt Count (125-369) X10(3)uL MPV (7.4-10.4) fL Neut % (Auto) (46-82) % Lymph % (Auto) (13-37) % [place] % (Auto) (4-12) % Eos % (Auto) (1.0-5.0) % Baso % (Auto) (0-2) % Neut # (Auto) (1.6-8.3) # Lymph # (Auto) (0.6-5.0) # [place] # (Auto) (0.0-1.3) # Eos # (Auto) (0.0-0.8) # Baso # (Auto) (0.0-0.2) # PT (8.7-11.1) INR (0.89-1.13) Sodium (135-145) mmol/L Potassium (3.5-5.3) mmol/L Chloride (100-110) mmol/L Carbon Dioxide (21-32) mmol/L BUN (7-18) mg/dL Creatinine (0.70-1.30) mg/dL Est Cr Clr Drug Dosing mL/min Estimated GFR (MDRD) (>60) BUN/Creatinine Ratio (9-20) Glucose (80-116) mg/dL POC Glucose (80-116) mg/dL Calcium (8.6-10.2) mg/dL Magnesium (1.8-2.5) mg/dL Total Bilirubin (0.1-1.3) mg/dL AST (5-25) IU/L ALT (12-36) U/L Alkaline Phosphatase (56-112) IU/L C-Reactive Protein 2.9 H* (0.5-0.9) mg/dL Total Protein (6.0-8.0) g/dL Albumin (3.2-4.6) g/dL Globulin g/dL Albumin/Globulin Ratio [facility] Results Last 24 Hours: Microbiology 12/11/17 00:40 Aerobic Blood Culture - Preliminary Blood - Arm, Left NO GROWTH AFTER 2 DAYS Anaerobic Blood Culture - Preliminary NO GROWTH AFTER 2 DAYS 12/10/17 00:00 Aerobic Blood Culture - Preliminary Blood NO GROWTH AFTER 2 DAYS Anaerobic Blood Culture - Preliminary NO GROWTH AFTER 2 DAYS 12/11/17 01:10 Urine Culture - Final Urine, Voided NO GROWTH AFTER 2 DAYS Med Orders - Current: Current Medications Acetaminophen (Tylenol) 650 mg PO Q4H PRN PRN Reason: Pain (Mild 1-3)/fever Artificial Tears (Genteal Severe Dry Eye Relief) 0 gm EYEBOTH BID [facility] Last Admin: 12/13/17 09:01 Dose: 1 applic Baclofen (Lioresal) 10 mg PO BID [facility] Last Admin: 12/13/17 09:02 Dose: 10 mg Cholecalciferol (Vitamin D3) 1,000 units PO DAILY [facility] Last Admin: 12/13/17 09:02 Dose: 1,000 units Docusate Sodium (Colace) 100 mg PO BID PRN PRN Reason: Constipation Ferrous Sulfate (Ferrous Sulfate) 325 mg PO BID [facility] Last Admin: 12/13/17 09:11 Dose: 325 mg Folic Acid (Folic Acid) 1 mg PO DAILY [facility] Last Admin: 12/13/17 09:01 Dose: 1 mg Glucagon (Glucagen) 1 mg IM DAILY PRN PRN Reason: Hypoglycemia Piperacillin Sod/Tazobactam (Sod 3.375 gm/ Sodium Chloride) 50 mls @ 100 mls/ hr IV Q6H [facility] Last Admin: 12/13/17 06:25 Dose: 100 mls/hr Levofloxacin/Dextrose 750 mg/ (Premix) 150 mls @ 100 mls/hr IV Q48H [facility] Last Infusion: 12/13/17 11:05 Dose: 100 mls/hr Levetiracetam (Keppra) 1,000 mg PO BID [facility] Last Admin: 12/13/17 09:01 Dose: 1,000 mg Magnesium Hydroxide (Milk Of Magnesia) 30 ml PO BEDTIME PRN PRN Reason: Constipation Multivitamins/Minerals/Vitamin C (Tab-A-Marv) 1 tab PO DAILY [facility] Last Admin: 12/13/17 08:59 Dose: 1 tab Ondansetron HCl (Zofran Odt) 8 mg PO Q6H PRN PRN Reason: nausea, able to take PO Ondansetron HCl (Zofran) 8 mg IV Q4H PRN PRN Reason: Nausea/Vomiting Pantoprazole Sodium (Protonix) 40 mg PO ACBREAKFAST [facility] Last Admin: 12/13/17 08:59 Dose: 40 mg Paroxetine HCl (Paxil) 30 mg PO DAILY [facility] Last Admin: 12/13/17 09:02 Dose: 30 mg Potassium Chloride (Klor-Con 10) 10 meq PO BIDPC [facility] Last Admin: 12/13/17 09:02 Dose: 10 meq Senna/Docusate Sodium (Senna Plus) 1 tab PO BID [facility] Last Admin: 12/11/17 21:06 Dose: 1 tab Simvastatin (Zocor) 20 mg PO BEDTIME [facility] Last Admin: 12/11/17 21:07 Dose: 20 mg Sodium Chloride (Saline Flush) 10 ml FLUSH ASDIRECTED PRN PRN Reason: Keep Vein Open Last Admin: 12/13/17 11:02 Dose: 10 ml Tramadol HCl (Ultram) 50 mg PO BEDTIME [facility] Last Admin: 12/12/17 20:28 Dose: 50 mg Warfarin Sodium (Coumadin Sliding Scale) 1 each PO ASDIRECTED [facility] Warfarin Sodium (Coumadin) 6 mg PO 1600 [facility] Stop: 12/13/17 16:01 Discontinued Medications Acetaminophen (Tylenol Arthritis Pain) 650 mg PO Q4H PRN PRN Reason: Pain Hydrocortisone Sodium Succinate (Solu-Cortef) 50 mg IVPUSH Q6H [facility] Last Admin: 12/12/17 03:58 Dose: 50 mg Piperacillin Sod/Tazobactam (Sod 3.375 gm/ Sodium Chloride) 50 mls @ 100 mls/ hr IV Q6H [facility] Last Admin: 12/11/17 00:08 Dose: 100 mls/hr Sodium Chloride (Normal Saline) 1,000 mls @ 100 mls/hr IV ASDIRECTED [facility] Last Admin: 12/11/17 10:31 Dose: 100 mls/hr Vancomycin HCl 1.25 gm/ Sodium (Chloride) 250 mls @ 167 mls/hr IV Q24H [facility] Last Admin: 12/11/17 01:25 Dose: 167 mls/hr Piperacillin Sod/Tazobactam (Sod 2.25 gm/ Sodium Chloride) 50 mls @ 100 mls/hr IV Q6H [facility] Last Admin: 12/11/17 21:30 Dose: Not Given Norepinephrine Bitartrate 4 mg (/ Dextrose/Water) 250 mls @ 7.5 mls/hr IV TITRATE [facility]; Protocol Piperacillin Sod/Tazobactam (Sod 2.25 gm/ Sodium Chloride) 50 mls @ 100 mls/hr IV Q6H [facility] Last Admin: 12/11/17 06:37 Dose: 100 mls/hr Vancomycin HCl 1,000 mg/Vancomycin HCl 750 mg/ Sodium Chloride 500 mls @ 250 mls/hr IV Q24H [facility] Last Admin: 12/11/17 22:36 Dose: 250 mls/hr Levofloxacin/Dextrose 500 mg/ (Premix) 100 mls @ 100 mls/hr IV Q24H [facility] Levofloxacin/Dextrose 750 mg/ (Premix) 150 mls @ 100 mls/hr IV Q24H [facility] Last Admin: 12/11/17 10:33 Dose: 100 mls/hr Piperacillin Sod/Tazobactam (Sod 4.5 gm/ Sodium Chloride) 100 mls @ 200 mls/hr IV Q6H [facility] Last Admin: 12/12/17 05:34 Dose: 200 mls/hr Sodium Chloride (Normal Saline) 1,000 mls @ 100 mls/hr IV ASDIRECTED [facility] Last Admin: 12/13/17 03:28 Dose: 100 mls/hr Metformin HCl (Glucophage) 1,000 mg PO BIDMEALS [facility] Last Admin: 12/11/17 17:27 Dose: 1,000 mg Warfarin Sodium (Coumadin) 3 mg PO 1600 [facility] Stop: 12/11/17 16:31 Last Admin: 12/11/17 17:27 Dose: 3 mg Warfarin Sodium (Coumadin) 5 mg PO 1600 [facility] Stop: 12/12/17 16:01 Last Admin: 12/12/17 18:22 Dose: 5 mg - Exam General: Alert, Cooperative, No Acute Distress HEENT: Pupils Equal, Pupils Reactive Neck: Supple Lungs: Rhonchi (When lying down, patient has occasional crackles and rhonchi. These clear with sitting up in chair.) Cardiovascular: Regular Rate, Regular Rhythm, No Murmurs GI/Abdominal Exam: Normal Bowel Sounds, Soft, Non-Tender, No Distention Extremities: No Pedal Edema - Problem List & Annotations (1) SIRS (systemic inflammatory response syndrome) SNOMED Code(s): 436883487 Code(s): R65.10 - SIRS OF NON-INFECTIOUS ORIGIN W/O ACUTE ORGAN DYSFUNCTION Status: Acute Current Visit: Yes Annotation/Comment:: Unclear etiology. Patient continues to remain afebrile and clinically stable on Levaquin and Zosyn. Blood cultures are back tomorrow if negative we can discontinue both antibiotics and monitor for 24 hours for recurrent symptoms. If no recurrent symptoms, can be discharged. (2) Anemia SNOMED Code(s): 050733959 Code(s): D64.9 - ANEMIA, UNSPECIFIED Status: Acute Current Visit: Yes Qualifiers: Anemia type: iron deficiency Annotation/Comment:: I need to review prior hx of anemia and transfusions. Hemoglobin currently stable. No evidence of DIC. (3) H/O: CVA (cerebrovascular accident) SNOMED Code(s): 863496891 Code(s): Z86.73 - PRSNL HX OF TIA (TIA), AND CEREB INFRC W/O RESID DEFICITS Status: Chronic Current Visit: Yes Annotation/Comment:: Post-stroke cares. (4) HLD (hyperlipidemia) SNOMED Code(s): 38512663 Code(s): E78.5 - HYPERLIPIDEMIA, UNSPECIFIED Status: Chronic Current Visit: Yes Qualifiers: Hyperlipidemia type: unspecified Qualified Code(s): E78.5 - Hyperlipidemia , unspecified Annotation/Comment:: Continue zocor. (5) Peripheral vascular disease SNOMED Code(s): 084517174 Code(s): I73.9 - PERIPHERAL VASCULAR DISEASE, UNSPECIFIED Status: Chronic Current Visit: Yes Annotation/Comment:: Continue home meds. (6) Lethargy SNOMED Code(s): 691468713 Code(s): R53.83 - OTHER FATIGUE Status: Acute Current Visit: No Annotation/Comment:: Resolved. Continue to work with patient's nonverbal cues and comfort measures. (7) History of DVT (deep vein thrombosis) SNOMED Code(s): 210271311 Code(s): Z86.718 - PERSONAL HISTORY OF OTHER VENOUS THROMBOSIS AND EMBOLISM Status: Acute Current Visit: Yes Annotation/Comment:: Continue anticoagulation. (8) DM2 (diabetes mellitus, type 2) SNOMED Code(s): 54220832 Code(s): E11.9 - TYPE 2 DIABETES MELLITUS WITHOUT COMPLICATIONS Status: Acute Current Visit: Yes Annotation/Comment:: We'll hold metformin for the time being given patient's elevated lactic acid. This could also be a possible culprit. (9) Acute kidney injury superimposed on chronic kidney disease SNOMED Code(s): 41737964 Code(s): N17.9 - ACUTE KIDNEY FAILURE, UNSPECIFIED; N18.9 - CHRONIC KIDNEY DISEASE, UNSPECIFIED Status: Acute Current Visit: Yes Annotation/Comment: : Creatinine has trended back down again today to 1.4. Continue to monitor. (10) Hypomagnesemia SNOMED Code(s): 290694800 Code(s): E83.42 - HYPOMAGNESEMIA Status: Acute Current Visit: Yes Annotation/Comment:: Replace PO. Follow daily. (11) Diarrhea SNOMED Code(s): 26759136 Code(s): R19.7 - DIARRHEA, UNSPECIFIED Status: Acute Current Visit: Yes Annotation/Comment:: Resolved. Continue to monitor. - Problem List Review Problem List Initiated/Reviewed/Updated: Yes - My Orders Last 24 Hours: My Active Orders 12/12/17 12:00 Piperacillin/Tazobactam [Zosyn] 3.375 gm Sodium Chloride 0.9% [Normal Saline] 50 ml IV Q6H 12/12/17 21:00 Ferrous Sulfate 325 mg PO BID traMADol [Ultram] 50 mg PO BEDTIME 12/13/17 07:36 Daily Weight [Height and Weight] [RC] 12/13/17 16:00 Warfarin [Coumadin] 6 mg PO 1600
[2017-12-13] MEDS ORDERED: Acetaminophen/HYDROcodone 325-5 MG Tab PO PRN (12:34)
[2017-12-13] MEDS: Albuterol/Ipratropium 3.0-0.5 MG/3 ML Neb Soln NEB SCH ×2 (15:21→20:58)
[2017-12-13] MEDS ORDERED: Warfarin 3 MG Tab PO SCH (16:00)
[2017-12-14] MEDS: Piperacillin/Tazobactam 3.375 GM in Sodium Chloride 0.9% 50 ML IV SCH ×2 (00:24→05:55)
[2017-12-14] MEDS: Albuterol/Ipratropium 3.0-0.5 MG/3 ML Neb Soln NEB SCH ×4 (07:08→20:54)
[2017-12-14] MEDS: Pantoprazole 40 MG Tab.CR PO SCH (08:11)
[2017-12-14] MEDS: HYPROMELLOSE 0.3% EYEBOTH SCH ×2 (09:05→20:31)
[2017-12-14] MEDS: Folic Acid 1 MG Tab PO SCH (09:08)
[2017-12-14] MEDS: Ferrous Sulfate 325 MG Tab PO SCH ×2 (09:08→20:31)
[2017-12-14] MEDS: Multivitamin Tab PO SCH (09:09)
[2017-12-14] MEDS: Cholecalciferol (Vitamin D3) 1,000 Unit Tab PO SCH (09:10)
[2017-12-14] MEDS: Baclofen 10 MG Tab PO SCH ×2 (09:10→20:31)
[2017-12-14] MEDS: Potassium Chloride 10 MEQ Tab.ER PO SCH ×2 (09:10→18:16)
[2017-12-14] MEDS: levETIRAcetam 500 MG Tab PO SCH ×2 (09:11→20:31)
--- NOTE | 2017-12-14 11:13 | PCM.PN ---
- General Info Date of Service: 12/14/17 Subjective Update: Patient is a 77-year-old male currently on hospital day #4 for febrile development of fever, lethargy and hypotension after transfusion. Patient's blood cultures and urine culture came back negative after 3 days so I'm going to discontinue antibiotics today. I got a repeat chest x-ray because the patient has been having intermittent rhonchorous-type sounds which sound upper airway but I want to make sure he wasn't developing any kind of pneumonia and chest x-ray to my review looks unchanged from previous, does not show any evidence of an acute infiltrate. No evidence of fluid overload. Patient himself indicates to me he is doing well today, he gives me a thumbs up. Denies chest pain or shortness of breath. Denies abdominal pain. Diarrhea has resolved and is still having occasional bowel movements about once a shift but they're no longer watery and loose. His bottom is feeling better. After talking with his daughter who says he has chronic low back pain, we started regular when necessary pain medication and this has seemed to help with the yelling out. - Patient Data Vitals - Most Recent: Last Vital Signs Temp 36.7 C 12/14/17 07:46 Pulse 76 12/14/17 07:46 Resp 20 12/14/17 07:46 BP 105/60 12/14/17 07:46 Pulse Ox 97 12/14/17 07:46 Weight - Most Recent: 122.334 kg I&O - Last 24 Hours: Intake & Output 12/13/17 12/14/17 12/14/17 22:59 06:59 14:59 Intake Total 500 350 240 Balance 500 350 240 Lab Results Last 24 Hours: Laboratory Results - last 24 hr 12/13/17 12/13/17 12/13/17 Range/Units 07:27 11:42 18:21 PT (8.7-11.1) INR (0.89-1.13) POC Glucose 96 193 H D 146 H (80-116) mg/dL 12/13/17 12/14/17 12/14/17 Range/Units 20:46 06:17 06:20 PT 20.0 H (8.7-11.1) INR 2.07 H (0.89-1.13) POC Glucose 176 H 105 (80-116) mg/dL [facility] Results Last 24 Hours: Microbiology 12/11/17 00:40 Aerobic Blood Culture - Preliminary Blood - Arm, Left NO GROWTH AFTER 3 DAYS Anaerobic Blood Culture - Preliminary NO GROWTH AFTER 3 DAYS 12/10/17 00:00 Aerobic Blood Culture - Preliminary Blood NO GROWTH AFTER 3 DAYS Anaerobic Blood Culture - Preliminary NO GROWTH AFTER 3 DAYS Med Orders - Current: Current Medications Acetaminophen (Tylenol) 650 mg PO Q4H PRN PRN Reason: Pain (Mild 1-3)/fever Hydrocodone Bitart/Acetaminophen ([place] 325-5 Mg) 1 tab PO Q6H PRN PRN Reason: back pain with yelling out Albuterol/Ipratropium (Duoneb 3.0-0.5 Mg/3 Ml) 3 ml NEB QIDRT [facility] Last Admin: 12/14/17 07:08 Dose: 3 ml Artificial Tears (Genteal Severe Dry Eye Relief) 0 gm EYEBOTH BID [facility] Last Admin: 12/14/17 09:05 Dose: 1 applic Baclofen (Lioresal) 10 mg PO BID [facility] Last Admin: 12/14/17 09:10 Dose: 10 mg Cholecalciferol (Vitamin D3) 1,000 units PO DAILY [facility] Last Admin: 12/14/17 09:10 Dose: 1,000 units Docusate Sodium (Colace) 100 mg PO BID PRN PRN Reason: Constipation Ferrous Sulfate (Ferrous Sulfate) 325 mg PO BID [facility] Last Admin: 12/14/17 09:08 Dose: 325 mg Folic Acid (Folic Acid) 1 mg PO DAILY [facility] Last Admin: 12/14/17 09:08 Dose: 1 mg Glucagon (Glucagen) 1 mg IM DAILY PRN PRN Reason: Hypoglycemia Levetiracetam (Keppra) 1,000 mg PO BID [facility] Last Admin: 12/14/17 09:11 Dose: 1,000 mg Magnesium Hydroxide (Milk Of Magnesia) 30 ml PO BEDTIME PRN PRN Reason: Constipation Multivitamins/Minerals/Vitamin C (Tab-A-Marv) 1 tab PO DAILY [facility] Last Admin: 12/14/17 09:09 Dose: 1 tab Pantoprazole Sodium (Protonix) 40 mg PO ACBREAKFAST [facility] Last Admin: 12/14/17 08:11 Dose: 40 mg Paroxetine HCl (Paxil) 30 mg PO DAILY [facility] Last Admin: 12/14/17 09:09 Dose: 30 mg Potassium Chloride (Klor-Con 10) 10 meq PO BIDPC [facility] Last Admin: 12/14/17 09:10 Dose: 10 meq Senna/Docusate Sodium (Senna Plus) 1 tab PO BID [facility] Last Admin: 12/11/17 21:06 Dose: 1 tab Simvastatin (Zocor) 20 mg PO BEDTIME [facility] Last Admin: 12/11/17 21:07 Dose: 20 mg Sodium Chloride (Saline Flush) 10 ml FLUSH ASDIRECTED PRN PRN Reason: Keep Vein Open Last Admin: 12/13/17 11:02 Dose: 10 ml Warfarin Sodium (Coumadin Sliding Scale) 1 each PO ASDIRECTED [facility] Warfarin Sodium (Coumadin) 3 mg PO 1600 [facility] Stop: 12/14/17 16:01 Discontinued Medications Acetaminophen (Tylenol Arthritis Pain) 650 mg PO Q4H PRN PRN Reason: Pain Hydrocortisone Sodium Succinate (Solu-Cortef) 50 mg IVPUSH Q6H [facility] Last Admin: 12/12/17 03:58 Dose: 50 mg Piperacillin Sod/Tazobactam (Sod 3.375 gm/ Sodium Chloride) 50 mls @ 100 mls/ hr IV Q6H [facility] Last Admin: 12/11/17 00:08 Dose: 100 mls/hr Sodium Chloride (Normal Saline) 1,000 mls @ 100 mls/hr IV ASDIRECTED [facility] Last Admin: 12/11/17 10:31 Dose: 100 mls/hr Vancomycin HCl 1.25 gm/ Sodium (Chloride) 250 mls @ 167 mls/hr IV Q24H [facility] Last Admin: 12/11/17 01:25 Dose: 167 mls/hr Piperacillin Sod/Tazobactam (Sod 2.25 gm/ Sodium Chloride) 50 mls @ 100 mls/hr IV Q6H [facility] Last Admin: 12/11/17 21:30 Dose: Not Given Norepinephrine Bitartrate 4 mg (/ Dextrose/Water) 250 mls @ 7.5 mls/hr IV TITRATE [facility]; Protocol Piperacillin Sod/Tazobactam (Sod 2.25 gm/ Sodium Chloride) 50 mls @ 100 mls/hr IV Q6H [facility] Last Admin: 12/11/17 06:37 Dose: 100 mls/hr Vancomycin HCl 1,000 mg/Vancomycin HCl 750 mg/ Sodium Chloride 500 mls @ 250 mls/hr IV Q24H [facility] Last Admin: 12/11/17 22:36 Dose: 250 mls/hr Levofloxacin/Dextrose 500 mg/ (Premix) 100 mls @ 100 mls/hr IV Q24H [facility] Levofloxacin/Dextrose 750 mg/ (Premix) 150 mls @ 100 mls/hr IV Q24H [facility] Last Admin: 12/11/17 10:33 Dose: 100 mls/hr Piperacillin Sod/Tazobactam (Sod 4.5 gm/ Sodium Chloride) 100 mls @ 200 mls/hr IV Q6H [facility] Last Admin: 12/12/17 05:34 Dose: 200 mls/hr Sodium Chloride (Normal Saline) 1,000 mls @ 100 mls/hr IV ASDIRECTED [facility] Last Admin: 12/13/17 03:28 Dose: 100 mls/hr Piperacillin Sod/Tazobactam (Sod 3.375 gm/ Sodium Chloride) 50 mls @ 100 mls/ hr IV Q6H [facility] Last Admin: 12/14/17 05:55 Dose: 100 mls/hr Levofloxacin/Dextrose 750 mg/ (Premix) 150 mls @ 100 mls/hr IV Q48H [facility] Last Infusion: 12/13/17 11:05 Dose: 100 mls/hr Metformin HCl (Glucophage) 1,000 mg PO BIDMEALS [facility] Last Admin: 12/11/17 17:27 Dose: 1,000 mg Ondansetron HCl (Zofran Odt) 8 mg PO Q6H PRN PRN Reason: nausea, able to take PO Ondansetron HCl (Zofran) 8 mg IV Q4H PRN PRN Reason: Nausea/Vomiting Tramadol HCl (Ultram) 50 mg PO BEDTIME [facility] Last Admin: 12/12/17 20:28 Dose: 50 mg Warfarin Sodium (Coumadin) 3 mg PO 1600 [facility] Stop: 12/11/17 16:31 Last Admin: 12/11/17 17:27 Dose: 3 mg Warfarin Sodium (Coumadin) 5 mg PO 1600 [facility] Stop: 12/12/17 16:01 Last Admin: 12/12/17 18:22 Dose: 5 mg Warfarin Sodium (Coumadin) 6 mg PO 1600 [facility] Stop: 12/13/17 16:01 Last Admin: 12/13/17 18:26 Dose: 6 mg - Exam General: Alert, Cooperative, No Acute Distress HEENT: Pupils Equal, Pupils Reactive Neck: Supple Lungs: Normal Respiratory Effort (upper airway noise which sounds like uncleared phlegm.), Decreased Breath Sounds Cardiovascular: Regular Rate, Regular Rhythm, No Murmurs GI/Abdominal Exam: Normal Bowel Sounds, Soft, Non-Tender, No Distention Extremities: Pedal Edema (trace pedal edema.) Psy/Mental Status: Alert - Problem List & Annotations (1) SIRS (systemic inflammatory response syndrome) SNOMED Code(s): 218881563 Code(s): R65.10 - SIRS OF NON-INFECTIOUS ORIGIN W/O ACUTE ORGAN DYSFUNCTION Status: Acute Current Visit: Yes Annotation/Comment:: Unclear etiology. Patient continues to remain afebrile and clinically stable. D/C zosyn and levaquin today. If stable for 24 hours off antibiotics, can discharge back to [place] tomorrow. (2) Anemia SNOMED Code(s): 261035302 Code(s): D64.9 - ANEMIA, UNSPECIFIED Status: Acute Current Visit: Yes Qualifiers: Anemia type: iron deficiency Annotation/Comment:: No records in the [facility] system so not clear to me who is managing this outpatient. Hemoglobin currently stable at the 9 range. No evidence of DIC. (3) H/O: CVA (cerebrovascular accident) SNOMED Code(s): 195741809 Code(s): Z86.73 - PRSNL HX OF TIA (TIA), AND CEREB INFRC W/O RESID DEFICITS Status: Chronic Current Visit: Yes Annotation/Comment:: Post-stroke cares. (4) HLD (hyperlipidemia) SNOMED Code(s): 98386888 Code(s): E78.5 - HYPERLIPIDEMIA, UNSPECIFIED Status: Chronic Current Visit: Yes Qualifiers: Hyperlipidemia type: unspecified Qualified Code(s): E78.5 - Hyperlipidemia , unspecified Annotation/Comment:: Continue zocor. (5) Peripheral vascular disease SNOMED Code(s): 999282556 Code(s): I73.9 - PERIPHERAL VASCULAR DISEASE, UNSPECIFIED Status: Chronic Current Visit: Yes Annotation/Comment:: Continue home meds. (6) Lethargy SNOMED Code(s): 215909676 Code(s): R53.83 - OTHER FATIGUE Status: Acute Current Visit: No Annotation/Comment:: Resolved. Continue to work with patient's nonverbal cues and comfort measures. (7) DM2 (diabetes mellitus, type 2) SNOMED Code(s): 05505160 Code(s): E11.9 - TYPE 2 DIABETES MELLITUS WITHOUT COMPLICATIONS Status: Acute Current Visit: Yes Annotation/Comment:: Metformin held due to elevated lactic acid. Blood sugars have been under 200. Will recheck lactate in am. (8) Acute kidney injury superimposed on chronic kidney disease SNOMED Code(s): 11746499 Code(s): N17.9 - ACUTE KIDNEY FAILURE, UNSPECIFIED; N18.9 - CHRONIC KIDNEY DISEASE, UNSPECIFIED Status: Acute Current Visit: Yes Annotation/Comment: : Creatinine stable, recheck tomorrow. Continue to monitor. (9) Hypomagnesemia SNOMED Code(s): 573971918 Code(s): E83.42 - HYPOMAGNESEMIA Status: Acute Current Visit: Yes Annotation/Comment:: Replace PO. Follow daily. (10) Diarrhea SNOMED Code(s): 67224255 Code(s): R19.7 - DIARRHEA, UNSPECIFIED Status: Acute Current Visit: Yes Annotation/Comment:: Resolved. Continue to monitor. (11) History of DVT (deep vein thrombosis) SNOMED Code(s): 947151878 Code(s): Z86.718 - PERSONAL HISTORY OF OTHER VENOUS THROMBOSIS AND EMBOLISM Status: Acute Current Visit: Yes Annotation/Comment:: Continue anticoagulation. - Problem List Review Problem List Initiated/Reviewed/Updated: Yes - My Orders Last 24 Hours: My Active Orders 12/13/17 12:34 Acetaminophen/HYDROcodone [[place] 325-5 MG] 1 tab PO Q6H PRN 12/13/17 14:57 RT Aerosol Therapy [RC] ASDIRECTED 12/13/17 16:00 Albuterol/Ipratropium [DuoNeb 3.0-0.5 MG/3 ML] 3 ml NEB QIDRT 12/14/17 07:54 CXR [Chest 1V Frontal] [CR] Routine 12/15/17 05:11 CBC WITH AUTO DIFF [HEME] AM COMPREHENSIVE METABOLIC PN,CMP [CHEM] AM CRP [C-REACTIVE PROTEIN] [CHEM] AM
[2017-12-14] MEDS ORDERED: Warfarin 3 MG Tab PO SCH (16:00)
[2017-12-15] MEDS: Pantoprazole 40 MG Tab.CR PO SCH (06:37)
[2017-12-15] MEDS: Albuterol/Ipratropium 3.0-0.5 MG/3 ML Neb Soln NEB SCH (07:12)
[2017-12-15] MEDS: HYPROMELLOSE 0.3% EYEBOTH SCH (08:39)
[2017-12-15] MEDS: Folic Acid 1 MG Tab PO SCH (08:39)
[2017-12-15] MEDS: Ferrous Sulfate 325 MG Tab PO SCH (08:39)
[2017-12-15] MEDS: levETIRAcetam 500 MG Tab PO SCH (08:39)
[2017-12-15] MEDS: Cholecalciferol (Vitamin D3) 1,000 Unit Tab PO SCH (08:40)
[2017-12-15] MEDS: Baclofen 10 MG Tab PO SCH (08:40)
[2017-12-15] MEDS: Multivitamin Tab PO SCH (08:40)
[2017-12-15] MEDS: Potassium Chloride 10 MEQ Tab.ER PO SCH (08:40)
--- NOTE | 2017-12-15 09:22 | PCM.DCSUM1 ---
Discharge Summary - Hospital Course Free Text/Narrative:: Date of admission: 12/11/17 Date of discharge: 12/15/17 Admission diagnosis: Septic shock, unclear etiology. Discharge diagnosis: SIRS with hypotension, unclear etiology, possible viral infectious agent in blood versus acute non-hemolytic febrile transfusion reaction. Blood and urine Cx negative. Consults: None Procedures: Serial chest x-rays were done which showed no infiltrate and no evidence of infection. Cultures were done of the blood and urine as well as stool for C. difficile all of which were negative. 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 The patient had a blood transfusion ordered on the day prior to admission 12/10/17 for a hemoglobin of 7.6. 2 units were transfused and about 3 or 4 hours later the patient presented to the emergency department with hypotension, fever, lethargy. He was admitted and started appropriately on broad-spectrum triple antibiotic therapy. The following day, consideration of delayed blood transfusion was entertained and workup for this was sent which was subsequently negative. Hospital course: See below for details per problem. Essentially patient did very well. Labs improved, antibiotics were able to be de-escalated. He did have a bump in his creatinine on hospital day #2 to 2.0 which responded well to a fluid bolus and de-escalating antibiotics. Antibiotics were discontinued at 3 days of negative cultures and patient was observed for 24 hours before discharge. Of note, the biggest issue during the patient's hospitalization was yelling out at staff and some aggression which appeared to be linked to periods of time in the patient's chair. After visiting with family and hearing about issues with chronic pain when sitting up, we started Trail for this and the patient tolerated it very well. On the day of discharge patient was doing very well. He was smiling and cheerful. Thumbs up all the way. Denied chest pain, shortness of breath, nausea , vomiting. On exam, head was atraumatic and normocephalic. Pupils equally round and reactive. Lungs clear to auscultation. Heart is regular normal rate and rhythm, no murmurs. Abdomen soft, nontender, nondistended. Normal bowel sounds. Extremities show +1 pedal edema. Discharge instructions: Patient will be discharged back to [facility]. Gabapentin was discontinued during hospital stay and the patient started on Trail. The patient did not receive any furosemide in the hospital and this was restarted on discharge but patient will need to be monitored for blood pressure drops as he did very well without this and may need a lower dose. The patient's metformin was stopped during hospital stay because lactic acid was increased and would not recommend restarting this. If another oral agent is needed in order to control his blood sugars in addition to his insulin would suggest adding Januvia as this can be used even in end-stage renal disease without issue. - Discharge Data Discharge Date: 12/15/17 Discharge Disposition: DC/Tfer to [facility] 03 Condition: Good - Discharge Diagnosis/Problem(s) (1) SIRS (systemic inflammatory response syndrome) SNOMED Code(s): 459281434 ICD Code: R65.10 - SIRS OF NON-INFECTIOUS ORIGIN W/O ACUTE ORGAN DYSFUNCTION Status: Acute Current Visit: Yes Problem Details: Unclear etiology. Patient continues to remain afebrile and clinically stable. Possibly infectious from unknown pathogen in blood, possibly acute nonhemolytic febrile transfusion reaction, delayed. Stable for 24 hours off antibiotics, can discharge back to [place] today. (2) Anemia SNOMED Code(s): 010418925 ICD Code: D64.9 - ANEMIA, UNSPECIFIED Status: Acute Current Visit: Yes Problem Details: In review of the patient's outpatient chart from the assisted, it appears the patient follows with Dr. Moreno from hematology at [facility]. Saw him last 11/17/2017. History of iron deficiency anemia, chronic GI bleed, thrombocytopenia. At that date ferritin was low at 14, hemoglobin 8.3 with normal MCV of 90.3, reticulocyte count 2.11 which is slightly low. Folate, B12, iron saturation panel, haptoglobin, and direct [place] were all normal. It appears the patient received another hemoglobin on 12/04 which was 7.6 here at [place]. After that, Dr. Ricks on 12/08/17 ordered 2 units packed red blood cells for hemoglobin less than 8. Hemoglobin currently stable at the 9 range. No evidence of DIC. Continue to follow with Dr. Ricks outpatient. Qualifiers: Anemia type: iron deficiency (3) H/O: CVA (cerebrovascular accident) SNOMED Code(s): 636124348 ICD Code: Z86.73 - PRSNL HX OF TIA (TIA), AND CEREB INFRC W/O RESID DEFICITS Status: Chronic Current Visit: Yes Problem Details: Post-stroke cares. (4) HLD (hyperlipidemia) SNOMED Code(s): 83198768 ICD Code: E78.5 - HYPERLIPIDEMIA, UNSPECIFIED Status: Chronic Current Visit: Yes Problem Details: Continue zocor. Would question long-term benefit versus risk in this patient's situation and with current life expectancy. Defer to PCP. Qualifiers: Hyperlipidemia type: unspecified Qualified Code(s): E78.5 - Hyperlipidemia , unspecified (5) Peripheral vascular disease SNOMED Code(s): 245530549 ICD Code: I73.9 - PERIPHERAL VASCULAR DISEASE, UNSPECIFIED Status: Chronic Current Visit: Yes Problem Details: Continue home meds. (6) Lethargy SNOMED Code(s): 668385965 ICD Code: R53.83 - OTHER FATIGUE Status: Acute Current Visit: No Problem Details: Resolved. Continue to work with patient's nonverbal cues and comfort measures. (7) DM2 (diabetes mellitus, type 2) SNOMED Code(s): 74938700 ICD Code: E11.9 - TYPE 2 DIABETES MELLITUS WITHOUT COMPLICATIONS Status: Acute Current Visit: Yes Problem Details: Metformin held due to elevated lactic acid. Blood sugars have been under 200. Lactate returned to normal. Would suggest not restarting this as patient has unclear etiology lactic acidosis. If requiring oral agent for DM in addition to his insulin would consider Januvia as very safe with low risk of hypoglycemia and at a low dose ( 25 mg) would likely give adequate control without worry of renal changes as can now be used in ESRD. (8) Acute kidney injury superimposed on chronic kidney disease SNOMED Code(s): 21517553 ICD Code: N17.9 - ACUTE KIDNEY FAILURE, UNSPECIFIED; N18.9 - CHRONIC KIDNEY DISEASE, UNSPECIFIED Status: Acute Current Visit: Yes Problem Details: Creatinine stable on discharge. Continue to monitor. (9) Hypomagnesemia SNOMED Code(s): 163158657 ICD Code: E83.42 - HYPOMAGNESEMIA Status: Acute Current Visit: Yes Problem Details: Replace PO. Follow up in the outpatient setting later this week , may not need senior care supplementation. (10) Diarrhea SNOMED Code(s): 23070790 ICD Code: R19.7 - DIARRHEA, UNSPECIFIED Status: Acute Current Visit: Yes Problem Details: Resolved once off antibiotic therapy. (11) History of DVT (deep vein thrombosis) SNOMED Code(s): 252172993 ICD Code: Z86.718 - PERSONAL HISTORY OF OTHER VENOUS THROMBOSIS AND EMBOLISM Status: Acute Current Visit: Yes Problem Details: Continue anticoagulation. (12) Chronic back pain SNOMED Code(s): 784395393 ICD Code: M54.9 - DORSALGIA, UNSPECIFIED; G89.29 - OTHER CHRONIC PAIN Status: Acute Current Visit: Yes Problem Details: Patient's gabapentin was stopped due to altered mental status and increased creatinine. Patient was managed with a combination of plain Tylenol and Trail which he did very well with. Gabapentin not recommended in patients in this age range particularly with renal disease in the [facility] due to sedation and the concern with buildup when creatinine increases. Will defer this to PCP but would recommend if restarting use a much lower dose and follow for symptom relief. - Patient Instructions Diet: Heart Healthy Diet Other/Special Instructions: Follow-up with PCP later this week. CBC, CRP, magnesium, BMP in 3 days. Metformin was stopped and patient will not be started on any new diabetic medication as blood sugars were all under 200. Consider Januvia if new med necessary as metformin is associated with lactic acidosis which this patient presented with. Patient's furosemide was held during hospital stay due to hypotension. No evidence of fluid overload. Chest x-ray day prior to discharge was unchanged from previous. Consider dose adjustment to lower dose or d/c'ing all together given CKD. - Discharge Plan Prescriptions/Med Rec: Acetaminophen/HYDROcodone [Trail 325-5 MG] 1 tab PO Q6H PRN #15 tablet PRN Reason: back pain with yelling out Umeclidinium Brm/Vilanterol Tr [Anoro Ellipta 62.5-25 MCG] 1 puff IH DAILY #1 inhaler Home Medications: Home Meds Baclofen 10 mg PO BID 10/28/13 [History] Folic Acid 1 mg PO DAILY 10/28/13 [History] Omeprazole 20 mg PO DAILY 10/28/13 [History] Potassium Chloride 10 meq PO BID 10/28/13 [History] Sennosides/Docusate Sodium [Senna-S] 1 each PO BID 10/28/13 [History] Simvastatin [Zocor] 20 mg PO BEDTIME 10/28/13 [History] Glucagon,Human Recombinant [Glucagon Emergency Kit] 1 mg IM DAILY PRN 05/08/15 [ History] Magnesium Hydroxide [Milk of Magnesia] 30 ml PO BEDTIME PRN 05/08/15 [History] Multivitamin [One Daily Multivitamin] 1 each PO DAILY 05/08/15 [History] Warfarin [Coumadin] 6 mg PO MO 05/08/15 [History] levETIRAcetam [Levetiracetam] 1,000 mg PO BID 05/08/15 [History] Hypromellose [Genteal Severe] 1 applic OP BID 11/14/17 [History] PARoxetine [Paxil] 30 mg PO DAILY 11/14/17 [History] Warfarin Sodium [Coumadin] 3 mg PO SUTUWETHFRSA 11/14/17 [History] Acetaminophen [Tylenol] 650 mg PO Q4H PRN 12/11/17 [History] Cholecalciferol (Vitamin D3) [Vitamin D3] 1,000 units PO DAILY 12/11/17 [History ] Ferrous Sulfate 324 mg PO BID 12/11/17 [History] Insulin Detemir [Levemir] 60 units SUBCUT BEDTIME 12/11/17 [History] guaiFENesin [Robitussin] 100 mg PO Q4H PRN 12/11/17 [History] Acetaminophen [Tylenol] 650 mg PO Q4H PRN tablet 12/15/17 [Rx] Acetaminophen/HYDROcodone [Trail 325-5 MG] 1 tab PO Q6H PRN #15 tablet 12/15/17 [Rx] Furosemide [Lasix] 80 mg PO QAM #0 12/15/17 [Rx] Umeclidinium Brm/Vilanterol Tr [Anoro Ellipta 62.5-25 MCG] 1 puff IH DAILY #1 inhaler 12/15/17 [Rx] Forms: ED Department Discharge Referrals: Murali Ricks MD [Primary Care Provider] - - Discharge Summary/Plan Comment DC Time >30 min.: Yes - Patient Data Vitals - Most Recent: Last Vital Signs Temp 36.8 C 12/15/17 04:00 Pulse 80 12/15/17 07:30 Resp 20 12/15/17 04:00 BP 102/55 L 12/15/17 04:00 Pulse Ox 94 L 12/15/17 07:30 Weight - Most Recent: 124.058 kg I&O - Last 24 hours: Intake & Output 12/14/17 12/15/17 12/15/17 22:59 06:59 14:59 Intake Total 300 75 75 Output Total 0 Balance 300 75 75 Lab Results - Last 24 hrs: Laboratory Results - last 24 hr 12/14/17 12/14/17 12/14/17 Range/Units 07:42 12:28 17:54 WBC (4.5-12.0) X10-3/uL RBC (4.30-5.75) x10(6)uL Hgb (11.5-15.5) g/dL Hct (30.0-51.3) % MCV (80-96) fL MCH (27.7-33.6) pg MCHC (32.2-35.4) g/dL RDW (11.5-15.5) % Plt Count (125-369) X10(3)uL MPV (7.4-10.4) fL Add Manual Diff Neutrophils % (Manual) (46-82) % Lymphocytes % (Manual) (13-37) % Monocytes % (Manual) (4-12) % Eosinophils % (Manual) (0-5) % Anisocytosis PT (8.7-11.1) INR (0.89-1.13) Sodium (135-145) mmol/L Potassium (3.5-5.3) mmol/L Chloride (100-110) mmol/L Carbon Dioxide (21-32) mmol/L BUN (7-18) mg/dL Creatinine (0.70-1.30) mg/dL Est Cr Clr Drug Dosing mL/min Estimated GFR (MDRD) (>60) BUN/Creatinine Ratio (9-20) Glucose (80-116) mg/dL POC Glucose 110 169 H 206 H (80-116) mg/dL Lactic Acid (0.4-2.2) mmol/L Calcium (8.6-10.2) mg/dL Total Bilirubin (0.1-1.3) mg/dL AST (5-25) IU/L ALT (12-36) U/L Alkaline Phosphatase (56-112) IU/L C-Reactive Protein (0.5-0.9) mg/dL Total Protein (6.0-8.0) g/dL Albumin (3.2-4.6) g/dL Globulin g/dL Albumin/Globulin Ratio 12/14/17 12/15/17 12/15/17 Range/Units 20:57 06:10 07:03 WBC (4.5-12.0) X10-3/uL RBC (4.30-5.75) x10(6)uL Hgb (11.5-15.5) g/dL Hct (30.0-51.3) % MCV (80-96) fL MCH (27.7-33.6) pg MCHC (32.2-35.4) g/dL RDW (11.5-15.5) % Plt Count (125-369) X10(3)uL MPV (7.4-10.4) fL Add Manual Diff Neutrophils % (Manual) (46-82) % Lymphocytes % (Manual) (13-37) % Monocytes % (Manual) (4-12) % Eosinophils % (Manual) (0-5) % Anisocytosis PT 30.1 H (8.7-11.1) INR 3.14 H (0.89-1.13) Sodium (135-145) mmol/L Potassium (3.5-5.3) mmol/L Chloride (100-110) mmol/L Carbon Dioxide (21-32) mmol/L BUN (7-18) mg/dL Creatinine (0.70-1.30) mg/dL Est Cr Clr Drug Dosing mL/min Estimated GFR (MDRD) (>60) BUN/Creatinine Ratio (9-20) Glucose (80-116) mg/dL POC Glucose 229 H 131 H D (80-116) mg/dL Lactic Acid (0.4-2.2) mmol/L Calcium (8.6-10.2) mg/dL Total Bilirubin (0.1-1.3) mg/dL AST (5-25) IU/L ALT (12-36) U/L Alkaline Phosphatase (56-112) IU/L C-Reactive Protein (0.5-0.9) mg/dL Total Protein (6.0-8.0) g/dL Albumin (3.2-4.6) g/dL Globulin g/dL Albumin/Globulin Ratio 12/15/17 12/15/17 12/15/17 Range/Units 07:03 07:03 07:03 WBC 3.3 L (4.5-12.0) X10-3/uL RBC 3.34 L (4.30-5.75) x10(6)uL Hgb 9.4 L (11.5-15.5) g/dL Hct 29.6 L (30.0-51.3) % MCV 88.4 (80-96) fL MCH 28.0 (27.7-33.6) pg MCHC 31.7 L (32.2-35.4) g/dL RDW 17.1 H (11.5-15.5) % Plt Count 150 (125-369) X10(3)uL MPV 7.3 L (7.4-10.4) fL Add Manual Diff Yes Neutrophils % (Manual) 58 (46-82) % Lymphocytes % (Manual) 26 (13-37) % Monocytes % (Manual) 10 (4-12) % Eosinophils % (Manual) 6 H (0-5) % Anisocytosis Moderate H PT (8.7-11.1) INR (0.89-1.13) Sodium 144 (135-145) mmol/L Potassium 3.8 (3.5-5.3) mmol/L Chloride 111 H (100-110) mmol/L Carbon Dioxide 25 (21-32) mmol/L BUN 12 D (7-18) mg/dL Creatinine 1.1 (0.70-1.30) mg/dL Est Cr Clr Drug Dosing 54.41 mL/min Estimated GFR (MDRD) > 60 (>60) BUN/Creatinine Ratio 10.9 (9-20) Glucose 116 (80-116) mg/dL POC Glucose (80-116) mg/dL Lactic Acid (0.4-2.2) mmol/L Calcium 7.8 L (8.6-10.2) mg/dL Total Bilirubin 0.6 (0.1-1.3) mg/dL AST 32 H D (5-25) IU/L ALT 25 D (12-36) U/L Alkaline Phosphatase 93 (56-112) IU/L C-Reactive Protein 3.0 H* (0.5-0.9) mg/dL Total Protein 5.9 L (6.0-8.0) g/dL Albumin 2.1 L (3.2-4.6) g/dL Globulin 3.8 g/dL Albumin/Globulin Ratio 0.6 //18 Range/Units 07:03 WBC (4.5-12.0) X10-3/uL RBC (4.30-5.75) x10(6)uL Hgb (11.5-15.5) g/dL Hct (30.0-51.3) % MCV (80-96) fL MCH (27.7-33.6) pg MCHC (32.2-35.4) g/dL RDW (11.5-15.5) % Plt Count (125-369) X10(3)uL MPV (7.4-10.4) fL Add Manual Diff Neutrophils % (Manual) (46-82) % Lymphocytes % (Manual) (13-37) % Monocytes % (Manual) (4-12) % Eosinophils % (Manual) (0-5) % Anisocytosis PT (8.7-11.1) INR (0.89-1.13) Sodium (135-145) mmol/L Potassium (3.5-5.3) mmol/L Chloride (100-110) mmol/L Carbon Dioxide (21-32) mmol/L BUN (7-18) mg/dL Creatinine (0.70-1.30) mg/dL Est Cr Clr Drug Dosing mL/min Estimated GFR (MDRD) (>60) BUN/Creatinine Ratio (9-20) Glucose (80-116) mg/dL POC Glucose (80-116) mg/dL Lactic Acid 1.7 (0.4-2.2) mmol/L Calcium (8.6-10.2) mg/dL Total Bilirubin (0.1-1.3) mg/dL AST (5-25) IU/L ALT (12-36) U/L Alkaline Phosphatase (56-112) IU/L C-Reactive Protein (0.5-0.9) mg/dL Total Protein (6.0-8.0) g/dL Albumin (3.2-4.6) g/dL Globulin g/dL Albumin/Globulin Ratio [facility] Results - Last 24 hrs: Microbiology 12/11/17 00:40 Aerobic Blood Culture - Preliminary Blood - Arm, Left NO GROWTH AFTER 4 DAYS Anaerobic Blood Culture - Preliminary NO GROWTH AFTER 4 DAYS 12/10/17 00:00 Aerobic Blood Culture - Preliminary Blood NO GROWTH AFTER 4 DAYS Anaerobic Blood Culture - Preliminary NO GROWTH AFTER 4 DAYS Med Orders - Current: Current Medications Acetaminophen (Tylenol) 650 mg PO Q4H PRN PRN Reason: Pain (Mild 1-3)/fever Hydrocodone Bitart/Acetaminophen (Trail 325-5 Mg) 1 tab PO Q6H PRN PRN Reason: back pain with yelling out Albuterol/Ipratropium (Duoneb 3.0-0.5 Mg/3 Ml) 3 ml NEB QIDRT [facility] Last Admin: 12/15/17 07:12 Dose: 3 ml Artificial Tears (Genteal Severe Dry Eye Relief) 0 gm EYEBOTH BID [facility] Last Admin: 12/15/17 08:39 Dose: 1 applic Baclofen (Lioresal) 10 mg PO BID [facility] Last Admin: 12/15/17 08:40 Dose: 10 mg Cholecalciferol (Vitamin D3) 1,000 units PO DAILY [facility] Last Admin: 12/15/17 08:40 Dose: 1,000 units Docusate Sodium (Colace) 100 mg PO BID PRN PRN Reason: Constipation Ferrous Sulfate (Ferrous Sulfate) 325 mg PO BID [facility] Last Admin: 12/15/17 08:39 Dose: 325 mg Folic Acid (Folic Acid) 1 mg PO DAILY [facility] Last Admin: 12/15/17 08:39 Dose: 1 mg Glucagon (Glucagen) 1 mg IM DAILY PRN PRN Reason: Hypoglycemia Levetiracetam (Keppra) 1,000 mg PO BID [facility] Last Admin: 12/15/17 08:39 Dose: 1,000 mg Magnesium Hydroxide (Milk Of Magnesia) 30 ml PO BEDTIME PRN PRN Reason: Constipation Multivitamins/Minerals/Vitamin C (Tab-A-Marv) 1 tab PO DAILY [facility] Last Admin: 12/15/17 08:40 Dose: 1 tab Pantoprazole Sodium (Protonix) 40 mg PO ACBREAKFAST [facility] Last Admin: 12/15/17 06:37 Dose: 40 mg Paroxetine HCl (Paxil) 30 mg PO DAILY [facility] Last Admin: 12/15/17 08:40 Dose: 30 mg Potassium Chloride (Klor-Con 10) 10 meq PO BIDPC [facility] Last Admin: 12/15/17 08:40 Dose: 10 meq Senna/Docusate Sodium (Senna Plus) 1 tab PO BID [facility] Last Admin: 12/11/17 21:06 Dose: 1 tab Simvastatin (Zocor) 20 mg PO BEDTIME [facility] Last Admin: 12/11/17 21:07 Dose: 20 mg Sodium Chloride (Saline Flush) 10 ml FLUSH ASDIRECTED PRN PRN Reason: Keep Vein Open Last Admin: 12/13/17 11:02 Dose: 10 ml Warfarin Sodium (Coumadin Sliding Scale) 1 each PO ASDIRECTED [facility] Warfarin Sodium (Coumadin) 3 mg PO 12/15/17@1600 [facility] Stop: 12/15/17 17:00 Discontinued Medications Acetaminophen (Tylenol Arthritis Pain) 650 mg PO Q4H PRN PRN Reason: Pain Hydrocortisone Sodium Succinate (Solu-Cortef) 50 mg IVPUSH Q6H [facility] Last Admin: 12/12/17 03:58 Dose: 50 mg Piperacillin Sod/Tazobactam (Sod 3.375 gm/ Sodium Chloride) 50 mls @ 100 mls/ hr IV Q6H [facility] Last Admin: 12/11/17 00:08 Dose: 100 mls/hr Sodium Chloride (Normal Saline) 1,000 mls @ 100 mls/hr IV ASDIRECTED [facility] Last Admin: 12/11/17 10:31 Dose: 100 mls/hr Vancomycin HCl 1.25 gm/ Sodium (Chloride) 250 mls @ 167 mls/hr IV Q24H [facility] Last Admin: 12/11/17 01:25 Dose: 167 mls/hr Piperacillin Sod/Tazobactam (Sod 2.25 gm/ Sodium Chloride) 50 mls @ 100 mls/hr IV Q6H [facility] Last Admin: 12/11/17 21:30 Dose: Not Given Norepinephrine Bitartrate 4 mg (/ Dextrose/Water) 250 mls @ 7.5 mls/hr IV TITRATE [facility]; Protocol Piperacillin Sod/Tazobactam (Sod 2.25 gm/ Sodium Chloride) 50 mls @ 100 mls/hr IV Q6H [facility] Last Admin: 12/11/17 06:37 Dose: 100 mls/hr Vancomycin HCl 1,000 mg/Vancomycin HCl 750 mg/ Sodium Chloride 500 mls @ 250 mls/hr IV Q24H [facility] Last Admin: 12/11/17 22:36 Dose: 250 mls/hr Levofloxacin/Dextrose 500 mg/ (Premix) 100 mls @ 100 mls/hr IV Q24H [facility] Levofloxacin/Dextrose 750 mg/ (Premix) 150 mls @ 100 mls/hr IV Q24H [facility] Last Admin: 12/11/17 10:33 Dose: 100 mls/hr Piperacillin Sod/Tazobactam (Sod 4.5 gm/ Sodium Chloride) 100 mls @ 200 mls/hr IV Q6H [facility] Last Admin: 12/12/17 05:34 Dose: 200 mls/hr Sodium Chloride (Normal Saline) 1,000 mls @ 100 mls/hr IV ASDIRECTED [facility] Last Admin: 12/13/17 03:28 Dose: 100 mls/hr Piperacillin Sod/Tazobactam (Sod 3.375 gm/ Sodium Chloride) 50 mls @ 100 mls/ hr IV Q6H [facility] Last Admin: 12/14/17 05:55 Dose: 100 mls/hr Levofloxacin/Dextrose 750 mg/ (Premix) 150 mls @ 100 mls/hr IV Q48H [facility] Last Infusion: 12/13/17 11:05 Dose: 100 mls/hr Metformin HCl (Glucophage) 1,000 mg PO BIDMEALS [facility] Last Admin: 12/11/17 17:27 Dose: 1,000 mg Ondansetron HCl (Zofran Odt) 8 mg PO Q6H PRN PRN Reason: nausea, able to take PO Ondansetron HCl (Zofran) 8 mg IV Q4H PRN PRN Reason: Nausea/Vomiting Tramadol HCl (Ultram) 50 mg PO BEDTIME [facility] Last Admin: 12/12/17 20:28 Dose: 50 mg Warfarin Sodium (Coumadin) 3 mg PO 1600 [facility] Stop: 12/11/17 16:31 Last Admin: 12/11/17 17:27 Dose: 3 mg Warfarin Sodium (Coumadin) 5 mg PO 1600 [facility] Stop: 12/12/17 16:01 Last Admin: 12/12/17 18:22 Dose: 5 mg Warfarin Sodium (Coumadin) 6 mg PO 1600 [facility] Stop: 12/13/17 16:01 Last Admin: 12/13/17 18:26 Dose: 6 mg Warfarin Sodium (Coumadin) 3 mg PO 1600 [facility] Stop: 12/14/17 16:01 Last Admin: 12/14/17 17:03 Dose: 3 mg Warfarin Sodium (Coumadin) Confirm Administered Dose 3 mg .ROUTE .[facility] Stop: 12/14/17 17:01 Last Admin: 12/14/17 17:19 Dose: Not Given
[2017-12-15 10:48] VITALS: BP 126/63
--- NOTE | 2017-12-15 11:15 | CR ---
INDICATION: Rhonchi, question pneumonia. CHEST: An AP upright view of the chest was obtained 12/14/2017 and compared with 12/11/2017 and 05/02/2015, revealing no significant interval change or acute process. The Port-A-Cath tip is not visualized on this examination. No definite consolidating pneumonia or effusion was seen with somewhat heavy markings again noted, likely fibrotic in nature, but making it difficult to entirely exclude minimal patchy bronchopneumonia. MTDD
[2017-12-15] MEDS ORDERED: Warfarin 3 MG Tab PO SCH (16:00)
== END 2017-12-15 10:15 | DRG 865 ==
LOC: FB.ED 23:11 → FB.MS 12-11 02:22
PROVIDERS: ADMIT Emergency Medicine; ATTEND Family Medicine
DX: A41.9 Sepsis, unspecified organism (principal); B34.9 Viral infection, unspecified; R65.21 Severe sepsis with septic shock; R65.11 Systemic inflammatory response syndrome (SIRS) of non-infectious origin with acute organ dysfunction; N17.9 Acute kidney failure, unspecified; K92.1 Melena; I69.951 Hemiplegia and hemiparesis following unspecified cerebrovascular disease affecting right dominant side; Z66 Do not resuscitate; Z51.5 Encounter for palliative care; T80.89XA Other complications following infusion, transfusion and therapeutic injection, initial encounter; N18.3 Chronic kidney disease, stage 3 (moderate); D50.9 Iron deficiency anemia, unspecified; E11.40 Type 2 diabetes mellitus with diabetic neuropathy, unspecified; E11.22 Type 2 diabetes mellitus with diabetic chronic kidney disease; R50.9 Fever, unspecified; R53.83 Other fatigue; R09.02 Hypoxemia; I73.9 Peripheral vascular disease, unspecified; Z86.718 Personal history of other venous thrombosis and embolism; Z87.891 Personal history of nicotine dependence; I50.9 Heart failure, unspecified; D50.0 Iron deficiency anemia secondary to blood loss (chronic); Z79.4 Long term (current) use of insulin; Z79.01 Long term (current) use of anticoagulants; I25.5 Ischemic cardiomyopathy; I25.10 Atherosclerotic heart disease of native coronary artery without angina pectoris; E78.5 Hyperlipidemia, unspecified; F32.9 Major depressive disorder, single episode, unspecified; G40.909 Epilepsy, unspecified, not intractable, without status epilepticus; H04.129 Dry eye syndrome of unspecified lacrimal gland; I69.920 Aphasia following unspecified cerebrovascular disease; R32 Unspecified urinary incontinence; E66.09 Other obesity due to excess calories; Z68.39 Body mass index [BMI] 39.0-39.9, adult; M54.9 Dorsalgia, unspecified; G89.29 Other chronic pain; E83.42 Hypomagnesemia; R19.7 Diarrhea, unspecified; Z87.440 Personal history of urinary (tract) infections; Z96.641 Presence of right artificial hip joint
CPT/HCPCS: 36415; 71045; 81001; 82272; 82803; 87040; 87086; 93005; 96361; 96365; 96367; 99285; J2543; J3370; J7030; J7050 ×2; 36600; 80053; 80177; 82962; 83010; 83036; 83605; 83615; 83735; 83880; 84100; 84443; 84484; 85025; 85027; 85379; 85610; 86140; 94640; A9270-GY; J1720; J1956; J7040; J7620

== ENCOUNTER 2018-06-22 12:29 | Inpatient (IN) | payer MEDICARE ==
[2018-06-22] MEDS ORDERED: Albuterol/Ipratropium 3.0-0.5 MG/3 ML Neb Soln NEB ONE (12:47)
--- NOTE | 2018-06-22 12:51 | EDM.PDOC ---
ED HPI GENERAL MEDICAL PROBLEM - General Stated Complaint: RESPIRATORY ISSUES Time Seen by Provider: 06/22/18 12:29 Source of Information: Reports: Patient History Limitations: Reports: Altered Mental Status - History of Present Illness INITIAL COMMENTS - FREE TEXT/NARRATIVE: 77 y.o.w.m with multiple medical issues including iron deficiency anemia, was transferred from the nursing for "non healing Pneumonia". On arrival to the ed, pt was lethargic with decreased lung sound on his right lower lung. Pt had pneumonias in the past, most often aspiration pneumonias Pt can not give a HPI, no family is present. BP 109/38 RR 20 Pulse ox 94% on 2 liters O2 by NC Pulse 89 Temp 98.9 Onset Date: 06/20/18 Onset Time: 07:00 Duration: Hour(s):, Day(s):, Getting Worse Location: Reports: Chest Quality: Reports: Other Severity: Moderate Improves with: Reports: Rest Worsens with: Reports: Movement Context: Reports: Sick Contact Associated Symptoms: Reports: Loss of Appetite, Shortness of Breath, Weakness, Other (lethargy) - Related Data Allergies Allergy/AdvReac Type Severity Reaction Status Date / Time No Known Allergies Allergy Verified 06/22/18 13:27 Home Meds: Home Meds Baclofen 10 mg PO ,10/28/13 [History] Sennosides/Docusate Sodium [Senna-S] 1 each PO ,10/28/13 [History] Simvastatin [Zocor] 20 mg PO 10/28/13 [History] levETIRAcetam [Levetiracetam] 1,000 mg PO ,05/08/15 [History] PARoxetine [Paxil] 30 mg PO 11/14/17 [History] guaiFENesin [Robitussin] 200 mg PO Q4H PRN 12/11/17 [History] Acetaminophen [Tylenol] 650 mg PO Q4H PRN tablet 12/15/17 [Rx] Gabapentin [Neurontin] 300 mg PO 08,,18 01/05/18 [History] Aspirin [Aspirin EC] 325 mg PO 08 04/27/18 [History] Bisacodyl [Dulcolax] 10 mg RECTAL Q72H PRN 04/27/18 [History] Dextrose [Glutose 15] 15 gm BUCCAL ASDIRECTED PRN 04/27/18 [History] Furosemide [Lasix] 80 mg PO 18 04/27/18 [History] Glucagon HCl 1 mg IM ASDIRECTED PRN 04/27/18 [History] Heparin Sodium [Heparin Lock Flush] 500 units FLUSH Q28D 04/27/18 [History] Insulin Aspart [NovoLOG] 15 unit SQ 08,12 04/27/18 [History] Insulin Aspart [NovoLOG] 20 unit SQ WITHDINNER 04/27/18 [History] Insulin Detemir [Levemir] 15 unit SQ WITHDINNER 04/27/18 [History] Lidocaine/Prilocaine [EMLA Crm] 1 applic TOP ASDIRECTED PRN 04/27/18 [History] Loperamide [Imodium] 2 mg PO ASDIRECTED PRN 04/27/18 [History] Magnesium Hydroxide [Milk of Magnesia] 30 ml PO DAILY PRN 04/27/18 [History] metFORMIN [Glucophage] 1,000 mg PO 08,18 04/27/18 [History] risperiDONE [Risperdal] 0.25 mg PO 12,16 04/27/18 [History] Albuterol/Ipratropium [DuoNeb 3.0-0.5 MG/3 ML] 3 ml INH BID 06/22/18 [History] Past Medical History HEENT History: Reports: Cataract, Other (See Below) Other HEENT History: BLEPHAROSPASM Cardiovascular History: Reports: Blood Clots/VTE/DVT, Cardiomyopathy, High Cholesterol Other Cardiovascular History: PERIPHERAL VASCULAR DISEASE Respiratory History: Reports: Other (See Below) Other Respiratory History: SLEEP DISORDER Gastrointestinal History: Reports: GERD Genitourinary History: Reports: Urinary Incontinence, UTI, Recurrent Neurological History: Reports: CVA, Speech Problems Psychiatric History: Reports: Aggressive/Hostile Behaviors, Anxiety, Depression , Suicidal Ideation Other Psychiatric History: APHASIA Endocrine/Metabolic History: Reports: Diabetes, Type II, IDDM Hematologic History: Reports: Folic Acid, Iron Deficiency - Past Surgical History Other Musculoskeletal Surgeries/Procedures:: unsure Social & Family History - Family History Family Medical History: Noncontributory - Caffeine Use Caffeine Use: Reports: Coffee, Soda Other Caffeine Use: 1 to 2 cups daily Caffeine Use Comment: 1 cup coffee per day. Approximately 50oz soda per day. - Living Situation & Occupation Living situation: Reports: Extended Care Facility (DO NOT RESUSCITATE) ED ROS GENERAL - Review of Systems Review Of Systems: Unable To Obtain ED EXAM, NEURO - Physical Exam Exam: See Below Exam Limited By: Altered Mental Status General Appearance: Lethargic Eye Exam: Bilateral Eye: Normal Inspection Ears: Normal External Exam, Normal Canal Nose: Normal Inspection, Normal Mucosa, No Blood Throat/Mouth: Normal Lips, Normal Voice, No Airway Compromise Head Exam: Atraumatic, Normocephalic Neck: Normal Inspection, Supple, Full Range of Motion Respiratory/Chest: Respiratory Distress, Decreased Breath Sounds, Rales, Prolonged Expiration Cardiovascular: Normal Peripheral Pulses, Irregularly Irregular GI/Abdominal: Normal Bowel Sounds (Male) Exam: Deferred Rectal (Males) Exam: Deferred Neurological: Difficulty Walking (unable to ambulate, lethargic) DTR: 2+: Bicep (L) Back Exam: Normal Inspection Extremities: Normal Inspection, Normal Capillary Refill Psychiatric: Depressed Mood Skin Exam: Warm, Dry, Intact, Normal Color EKG INTERPRETATION EKG Date: 06/22/18 Time: 12:50 Rhythm: A-Fib Rate (Beats/Min): 98 [place]: Normal P-Wave: Absent QRS: Normal ST-T: Normal QT: Normal Comparison: NA - No Prior EKG Course - Vital Signs Text/Narrative:: 77 y.o.w.m with multiple medical issues including iron deficiency anemia, was transferred from [facility] for "non healing Pneumonia". On arrival to the ed, pt was lethargic with decreased lung sound on his right lower lung. Pt had pneumonias in the past, most often aspiration pneumonias Pt can not give a HPI, no family is present. BP 109/38 RR 20 Pulse ox 94% on 2 liters O2 by NC Pulse 89 Temp 98.9 PE: Morbid obese w m lethargic with RLL infiltrate Imaging: CXR: RLL infiltrate Labs: WBC 12.9 HGB 7.2 HCG 22.5 BMP Na 147 K 3.5 Lactic acid 5.1 BUN 28 Cr. 1.7 GFR 37 BCx results are pending Impression: Iron deficiency Anemia, RLL pneumonia with septic picture, lethargy , H/O right elbow wound. DNR/DNI Tx: Duo neb, Levoquine 750mg first dose given in the ED. Then 750 mg Levaquin every 48 hours as per Pharmacy. Plan Rep: No blood transfusion unless HGB is below 7.0, Wound right elbow (steri stips applied [employer]. Holliday was placed in the ED 2.32 pm Consultation: Dr. Sol, Hospitalist: Accepted pt for admission Reexam: Improved Plan: [facility] Last Recorded V/S: Last Vital Signs Temp 37.1 C 06/22/18 12:29 Pulse 101 H 06/22/18 14:47 Resp 18 06/22/18 14:47 BP 119/40 L 06/22/18 14:47 Pulse Ox 97 06/22/18 14:47 - Orders/Labs/Meds Orders: Active Orders 24 hr Category Date Time Status Patient Status [ADT] Routine ADT 06/22/18 14:34 Active Oxygen Therapy Adult [Oxygen Therapy, ED] [RC] Care 06/22/18 13:29 Active ASDIRECTED Oxygen Therapy [RC] PRN Care 06/22/18 14:34 Active Pulse Oximetry [RC] PRN Care 06/22/18 14:37 Active RT Aerosol Therapy [RC] ASDIRECTED Care 06/22/18 12:47 Active Up With Assistance [RC] ASDIRECTED Care 06/22/18 14:34 Active Urinary Catheter Assessment [RC] QSHIFT Care 06/22/18 14:57 Active Urinary Catheter Insertion [Insert Urinary Catheter] [ Care 06/22/18 15:00 Ordered OM.PC] Q24H VTE/DVT Education [RC] Per Unit Routine Care 06/22/18 14:34 Active Vital Signs [RC] Q4H Care 06/22/18 14:34 Active Nothing per Oral Now Diet [DIET] Diet 06/22/18 Breakfast Ordered CULTURE BLOOD [BC] Urgent Lab 06/22/18 13:42 Received CULTURE BLOOD [BC] Urgent Lab 06/22/18 13:47 Received Sodium Chloride 0.9% [Saline Flush] Med 06/22/18 14:34 Active 10 ml FLUSH ASDIRECTED PRN Blood Culture x2 Reflex Set [OM.PC] Urgent Oth 06/22/18 13:32 Ordered Peripheral IV Insertion Adult [OM.PC] Routine Oth 06/22/18 14:34 Ordered Resuscitation Status Routine Resus Stat 06/22/18 14:34 Ordered EKG 12 Lead [EK] Routine Ther 06/22/18 12:48 Ordered Medication Orders Piperacillin Sod/Tazobactam (Sod 3.375 gm/ Sodium Chloride) 50 mls @ 100 mls/ hr IV Q6H MARCELO Levofloxacin/Dextrose 750 mg/ (Premix) 150 mls @ 100 mls/hr IV Q48H MARCELO Sodium Chloride (Saline Flush) 10 ml FLUSH ASDIRECTED PRN PRN Reason: Keep Vein Open Last Admin: 06/22/18 15:35 Dose: 10 ml Admin: 06/22/18 14:00 Dose: 10 ml Labs: Laboratory Tests 06/22/18 06/22/18 06/22/18 Range/Units 13:05 13:05 13:05 WBC 12.9 H (4.5-12.0) X10-3/uL RBC 2.47 L (4.30-5.75) x10(6)uL Hgb 7.2 L (11.5-15.5) g/dL Hct 22.5 L (30.0-51.3) % MCV 91.0 (80-96) fL MCH 29.1 (27.7-33.6) pg MCHC 31.9 L (32.2-35.4) g/dL RDW 18.9 H (11.5-15.5) % Plt Count 246 (125-369) X10(3)uL MPV 6.7 L (7.4-10.4) fL Add Manual Diff Yes Neutrophils % (Manual) 84 H (46-82) % Band Neutrophils % 2 (0-6) % Lymphocytes % (Manual) 7 L (13-37) % Monocytes % (Manual) 7 (4-12) % Polychromasia Few Anisocytosis Moderate H Microcytosis Moderate H Sodium 147 H (135-145) mmol/L Potassium 3.5 (3.5-5.3) mmol/L Chloride 108 (100-110) mmol/L Carbon Dioxide 31 (21-32) mmol/L BUN 28 H (7-18) mg/dL Creatinine 1.7 H (0.70-1.30) mg/dL Est Cr Clr Drug Dosing TNP Estimated GFR (MDRD) 39 L (>60) BUN/Creatinine Ratio 16.5 (9-20) Glucose 195 H (80-116) mg/dL Lactic Acid 5.5 H* (0.4-2.2) mmol/L Calcium 8.8 (8.6-10.2) mg/dL Urine Color (YELLOW) Urine Appearance (CLEAR) Urine pH (5.0-6.5) Ur Specific [place] (1.010-1.025) Urine Protein (NEGATIVE) mg/dL Urine Glucose (UA) (NEGATIVE) mg/dL Urine Ketones (NEGATIVE) mg/dL Urine Occult Blood (NEGATIVE) Urine Nitrite (NEGATIVE) Urine Bilirubin (NEGATIVE) Urine Urobilinogen (NEGATIVE) mg/dL Ur Leukocyte Esterase (NEGATIVE) Urine RBC (0) Urine WBC (0) Ur Squamous Epith Cells (NS,R,O) Urine Bacteria (NS) Blood Type Gel Antibody Screen 06/22/18 06/22/18 Range/Units 13:05 13:21 WBC (4.5-12.0) X10-3/uL RBC (4.30-5.75) x10(6)uL Hgb (11.5-15.5) g/dL Hct (30.0-51.3) % MCV (80-96) fL MCH (27.7-33.6) pg MCHC (32.2-35.4) g/dL RDW (11.5-15.5) % Plt Count (125-369) X10(3)uL MPV (7.4-10.4) fL Add Manual Diff Neutrophils % (Manual) (46-82) % Band Neutrophils % (0-6) % Lymphocytes % (Manual) (13-37) % Monocytes % (Manual) (4-12) % Polychromasia Anisocytosis Microcytosis Sodium (135-145) mmol/L Potassium (3.5-5.3) mmol/L Chloride (100-110) mmol/L Carbon Dioxide (21-32) mmol/L BUN (7-18) mg/dL Creatinine (0.70-1.30) mg/dL Est Cr Clr Drug Dosing Estimated GFR (MDRD) (>60) BUN/Creatinine Ratio (9-20) Glucose (80-116) mg/dL Lactic Acid (0.4-2.2) mmol/L Calcium (8.6-10.2) mg/dL Urine Color Yellow (YELLOW) Urine Appearance Slightly cloudy (CLEAR) Urine pH 5.0 (5.0-6.5) Ur Specific [place] 1.020 (1.010-1.025) Urine Protein Negative (NEGATIVE) mg/dL Urine Glucose (UA) Normal (NEGATIVE) mg/dL Urine Ketones Negative (NEGATIVE) mg/dL Urine Occult Blood Moderate H (NEGATIVE) Urine Nitrite Negative (NEGATIVE) Urine Bilirubin Small H (NEGATIVE) Urine Urobilinogen 1 H (NEGATIVE) mg/dL Ur Leukocyte Esterase Negative (NEGATIVE) Urine RBC 0-5 (0) Urine WBC 0-5 (0) Ur Squamous Epith Cells Few H (NS,R,O) Urine Bacteria Few H (NS) Blood Type A POSITIVE Gel Antibody Screen Negative Meds: Medications Generic Name Dose Route Start Last Admin Trade Name Freq PRN Reason Stop Dose Admin Piperacillin Sod/Tazobactam 50 mls @ 100 mls/hr 06/22/18 16:00 Sod 3.375 gm/ Sodium Chloride IV Q6H MARCELO Levofloxacin/Dextrose 750 mg/ 150 mls @ 100 mls/hr 06/23/18 13:00 Premix IV Q48H MARCELO Sodium Chloride 10 ml 06/22/18 14:34 06/22/18 15:35 Saline Flush FLUSH 10 ml ASDIRECTED PRN Administration Keep Vein Open Discontinued Medications Generic Name Dose Route Start Last Admin Trade Name Freq PRN Reason Stop Dose Admin Albuterol/Ipratropium 3 ml 06/22/18 12:47 06/22/18 12:57 Duoneb 3.0-0.5 Mg/3 Ml NEB 06/22/18 12:48 3 ml ONETIME ONE Administration Levofloxacin/Dextrose 750 mg/ 150 mls @ 100 mls/hr 06/22/18 13:33 06/22/18 14 :08 Premix IV 06/22/18 15:02 100 mls/hr ONETIME ONE Administration Departure - Departure Time of Disposition: 15:41 Disposition: Admitted As Inpatient 66 Condition: Fair Clinical Impression: Pneumonia Qualifiers: Pneumonia type: due to unspecified organism Laterality: left - Discharge Information - My Orders Last 24 Hours: My Active Orders 06/22/18 12:47 RT Aerosol Therapy [RC] ASDIRECTED 06/22/18 12:48 EKG 12 Lead [EK] Routine 06/22/18 13:29 Oxygen Therapy Adult [Oxygen Therapy, ED] [RC] ASDIRECTED 06/22/18 13:32 Blood Culture x2 Reflex Set [OM.PC] Urgent 06/22/18 13:42 CULTURE BLOOD [BC] Urgent 06/22/18 13:47 CULTURE BLOOD [BC] Urgent 06/22/18 14:34 Patient Status [ADT] Routine Oxygen Therapy [RC] PRN Up With Assistance [RC] ASDIRECTED VTE/DVT Education [RC] Per Unit Routine Vital Signs [RC] Q4H Sodium Chloride 0.9% [Saline Flush] 10 ml FLUSH ASDIRECTED PRN Peripheral IV Insertion Adult [OM.PC] Routine Resuscitation Status Routine 06/22/18 14:37 Pulse Oximetry [RC] PRN 06/22/18 14:57 Urinary Catheter Assessment [RC] QSHIFT 06/22/18 15:00 Urinary Catheter Insertion [Insert Urinary Catheter] [OM.PC] Q24H 06/22/18 Breakfast Nothing per Oral Now Diet [DIET] - Assessment/Plan Last 24 Hours: My Active Orders 06/22/18 12:47 RT Aerosol Therapy [RC] ASDIRECTED 06/22/18 12:48 EKG 12 Lead [EK] Routine 06/22/18 13:29 Oxygen Therapy Adult [Oxygen Therapy, ED] [RC] ASDIRECTED 06/22/18 13:32 Blood Culture x2 Reflex Set [OM.PC] Urgent 06/22/18 13:42 CULTURE BLOOD [BC] Urgent 06/22/18 13:47 CULTURE BLOOD [BC] Urgent 06/22/18 14:34 Patient Status [ADT] Routine Oxygen Therapy [RC] PRN Up With Assistance [RC] ASDIRECTED VTE/DVT Education [RC] Per Unit Routine Vital Signs [RC] Q4H Sodium Chloride 0.9% [Saline Flush] 10 ml FLUSH ASDIRECTED PRN Peripheral IV Insertion Adult [OM.PC] Routine Resuscitation Status Routine 06/22/18 14:37 Pulse Oximetry [RC] PRN 06/22/18 14:57 Urinary Catheter Assessment [RC] QSHIFT 06/22/18 15:00 Urinary Catheter Insertion [Insert Urinary Catheter] [OM.PC] Q24H 06/22/18 Breakfast Nothing per Oral Now Diet [DIET]
[2018-06-22] MEDS ORDERED: Levofloxacin/Dextrose 5%-Water 750 MG in Premix Bag 1 BAG IV ONE (13:33)
--- NOTE | 2018-06-22 13:57 | CR ---
INDICATION: Wheezes. CHEST: AP portable upright view of the chest 06-22-18 was compared with and 05-29-18. The chest is rotated to the right. Pleural parenchymal changes are noted at the right lung base which may be on the basis of pneumonia and pleuritis. Pulmonary vasculature is somewhat prominent raising question of CHF although the heart was not grossly enlarged. This should be correlated clinically. Port-a-cath is unchanged in position. Left lung and pleural space appeared unremarkable. IMPRESSION: 1. Pleura parenchymal changes suggested at the right lower lung field suggesting pneumonia and pleuritis but should be correlated clinically. 2. ASHD with probable mild cardiomegaly although the heart is not significantly enlarged. The possibility of a minimal or early CHF is difficult to exclude although other cause of pulmonary vascular congestion such as fluid overload, renal failure etc., cannot be excluded. MTDD
[2018-06-22] MEDS: Sodium Chloride 0.9% 10 ML Syringe FLUSH PRN ×4 (14:00→22:12)
[2018-06-22] MEDS: Piperacillin/Tazobactam 3.375 GM in Sodium Chloride 0.9% 50 ML IV SCH ×2 (16:49→21:59)
[2018-06-22] MEDS: Lactated Ringers 1,000 ML IV SCH (19:43)
[2018-06-23] MEDS: Piperacillin/Tazobactam 3.375 GM in Sodium Chloride 0.9% 50 ML IV SCH ×4 (03:50→22:06)
[2018-06-23] MEDS: Lactated Ringers 1,000 ML IV SCH (04:03)
--- NOTE | 2018-06-23 09:57 | PCM.HP ---
H&P History of Present Illness - General Date of Service: 06/23/18 Admit Problem/Dx: Admission Diagnosis/Problem Admission Diagnosis/Problem Pneumonia Source of Information: Old Records History Limitations: Reports: No Limitations - History of Present Illness Initial Comments - Free Text/Narative: Ruht is a 77-year-old male from the [facility] came in because of lethargy, weakness, hypoxia and other vague symptoms and period of time unclear. Perhaps one to 2 days. He has a history of pneumonia ,recurrent, with a recent admission on 05/01/2018 on multiple [facility] evaluations. He was reported to be done low-grade temperature 99.8 in the senior care. He also has anemia, multifactorial, type 2 diabetes, history of DVTs, atrial fibrillation and a history of CHF previously stable - Related Data Allergies/Adverse Reactions: Allergies Allergy/AdvReac Type Severity Reaction Status Date / Time No Known Allergies Allergy Verified 06/22/18 13:27 Home Medications: Home Meds Baclofen 10 mg PO ,10/28/13 [History] Sennosides/Docusate Sodium [Senna-S] 1 each PO ,10/28/13 [History] Simvastatin [Zocor] 20 mg PO 10/28/13 [History] levETIRAcetam [Levetiracetam] 1,000 mg PO ,18 05/08/15 [History] PARoxetine [Paxil] 30 mg PO 08 11/14/17 [History] guaiFENesin [Robitussin] 200 mg PO Q4H PRN 12/11/17 [History] Acetaminophen [Tylenol] 650 mg PO Q4H PRN tablet 12/15/17 [Rx] Gabapentin [Neurontin] 300 mg PO 08,,18 01/05/18 [History] Aspirin [Aspirin EC] 325 mg PO 08 04/27/18 [History] Bisacodyl [Dulcolax] 10 mg RECTAL Q72H PRN 04/27/18 [History] Dextrose [Glutose 15] 15 gm BUCCAL ASDIRECTED PRN 04/27/18 [History] Furosemide [Lasix] 80 mg PO 18 04/27/18 [History] Glucagon HCl 1 mg IM ASDIRECTED PRN 04/27/18 [History] Heparin Sodium [Heparin Lock Flush] 500 units FLUSH Q28D 04/27/18 [History] Insulin Aspart [NovoLOG] 15 unit SQ 08,12 04/27/18 [History] Insulin Aspart [NovoLOG] 20 unit SQ WITHDINNER 04/27/18 [History] Insulin Detemir [Levemir] 15 unit SQ WITHDINNER 04/27/18 [History] Lidocaine/Prilocaine [EMLA Crm] 1 applic TOP ASDIRECTED PRN 04/27/18 [History] Loperamide [Imodium] 2 mg PO ASDIRECTED PRN 04/27/18 [History] Magnesium Hydroxide [Milk of Magnesia] 30 ml PO DAILY PRN 04/27/18 [History] metFORMIN [Glucophage] 1,000 mg PO ,18 04/27/18 [History] risperiDONE [Risperdal] 0.25 mg PO 12,16 04/27/18 [History] Albuterol/Ipratropium [DuoNeb 3.0-0.5 MG/3 ML] 3 ml INH BID 06/22/18 [History] Past Medical History HEENT History: Reports: Cataract, Other (See Below) Other HEENT History: BLEPHAROSPASM Cardiovascular History: Reports: Blood Clots/VTE/DVT, Cardiomyopathy, High Cholesterol Other Cardiovascular History: PERIPHERAL VASCULAR DISEASE Respiratory History: Reports: Other (See Below) Other Respiratory History: SLEEP DISORDER Gastrointestinal History: Reports: GERD Genitourinary History: Reports: Urinary Incontinence, UTI, Recurrent Musculoskeletal History: Reports: Arthritis Neurological History: Reports: CVA, Speech Problems Psychiatric History: Reports: Aggressive/Hostile Behaviors, Anxiety, Depression , Suicidal Ideation Other Psychiatric History: APHASIA Endocrine/Metabolic History: Reports: Diabetes, Type II, IDDM Hematologic History: Reports: Folic Acid, Iron Deficiency Other Hematologic History: NOTE DO NOT TRANSFUSE UNLESS HGB LESS THEN 7.0 PER FAMILY REQUEST. - Past Surgical History Other Musculoskeletal Surgeries/Procedures:: unsure Social & Family History - Family History Family Medical History: Noncontributory - Tobacco Use Smoking Status *Q: Never Smoker - Caffeine Use Caffeine Use: Reports: Coffee, Soda Other Caffeine Use: 1 to 2 cups daily Caffeine Use Comment: 1 cup coffee per day. Approximately 50oz soda per day. - Recreational Drug Use Recreational Drug Use: No - Living Situation & Occupation Living situation: Reports: Extended Care Facility (DO NOT RESUSCITATE) H&P Review of Systems - Review of Systems: Review Of Systems: ROS reveals no pertinent complaints other than HPI. Exam - Exam Exam: See Below - Vital Signs Vital Signs: Last Vital Signs Temp 99.4 F 06/23/18 04:15 Pulse 91 06/23/18 04:15 Resp 20 06/23/18 04:15 BP 89/42 L 06/22/18 23:50 Pulse Ox 94 L 06/23/18 04:15 Weight: 116.233 kg - Exam Quality Assessment: Supplemental Oxygen General: Alert, Other (aphasia) HEENT: PERRLA, Hearing Intact, Mucosa Moist & [place], Nares Patent, Normal Nasal Septum, Posterior Pharynx Clear, Conjunctiva Clear, EOMI, EACs Clear, TMs Clear Neck: Supple, Trachea Midline, 2 Lungs: Clear to Auscultation Cardiovascular: Regular Rate, Regular Rhythm GI/Abdominal Exam: Normal Bowel Sounds, Soft, Non-Tender, No Organomegaly, No Distention, No Abnormal Bruit, No Mass, Pelvis Stable (Male) Exam: No Hernia, Normal Inspection, Normal Prostate, Circumcised Rectal (Males) Exam: Normal Exam, Normal Rectal Tone, Prostate Normal Back Exam: Normal Inspection, Full Range of Motion, NT Extremities: Normal Inspection, Normal Range of Motion, Non-Tender, No Pedal Edema, Normal Capillary Refill Skin: Warm, Dry, Intact Neurological: Cranial Nerves Intact, Reflexes Equal Bilateral Neuro Extensive - Mental Status: Alert, Oriented x3, Normal Mood/Affect, Normal Cognition Neuro Extensive - Motor, Sensory, Reflexes: CN II-XII Intact, Normal Gait, Normal Reflexes Psychiatric: Alert, Normal Affect, Normal Mood - Patient Data Lab Results Last 24 hrs: Laboratory Results - last 24 hr 06/22/18 06/22/18 06/22/18 Range/Units 13:05 13:05 13:05 WBC 12.9 H (4.5-12.0) X10-3/uL RBC 2.47 L (4.30-5.75) x10(6)uL Hgb 7.2 L (11.5-15.5) g/dL Hct 22.5 L (30.0-51.3) % MCV 91.0 (80-96) fL MCH 29.1 (27.7-33.6) pg MCHC 31.9 L (32.2-35.4) g/dL RDW 18.9 H (11.5-15.5) % Plt Count 246 (125-369) X10(3)uL MPV 6.7 L (7.4-10.4) fL Add Manual Diff Yes Neutrophils % (Manual) 84 H (46-82) % Band Neutrophils % 2 (0-6) % Lymphocytes % (Manual) 7 L (13-37) % Monocytes % (Manual) 7 (4-12) % Polychromasia Few Anisocytosis Moderate H Microcytosis Moderate H Sodium 147 H (135-145) mmol/L Potassium 3.5 (3.5-5.3) mmol/L Chloride 108 (100-110) mmol/L Carbon Dioxide 31 (21-32) mmol/L BUN 28 H (7-18) mg/dL Creatinine 1.7 H (0.70-1.30) mg/dL Est Cr Clr Drug Dosing TNP Estimated GFR (MDRD) 39 L (>60) BUN/Creatinine Ratio 16.5 (9-20) Glucose 195 H (80-116) mg/dL POC Glucose (80-116) mg/dL Lactic Acid 5.5 H* (0.4-2.2) mmol/L Calcium 8.8 (8.6-10.2) mg/dL Urine Color (YELLOW) Urine Appearance (CLEAR) Urine pH (5.0-6.5) Ur Specific [place] (1.010-1.025) Urine Protein (NEGATIVE) mg/dL Urine Glucose (UA) (NEGATIVE) mg/dL Urine Ketones (NEGATIVE) mg/dL Urine Occult Blood (NEGATIVE) Urine Nitrite (NEGATIVE) Urine Bilirubin (NEGATIVE) Urine Urobilinogen (NEGATIVE) mg/dL Ur Leukocyte Esterase (NEGATIVE) Urine RBC (0) Urine WBC (0) Ur Squamous Epith Cells (NS,R,O) Urine Bacteria (NS) Blood Type Gel Antibody Screen Crossmatch 06/22/18 06/22/18 06/23/18 Range/Units 13:05 13:21 06:10 WBC (4.5-12.0) X10-3/uL RBC (4.30-5.75) x10(6)uL Hgb (11.5-15.5) g/dL Hct (30.0-51.3) % MCV (80-96) fL MCH (27.7-33.6) pg MCHC (32.2-35.4) g/dL RDW (11.5-15.5) % Plt Count (125-369) X10(3)uL MPV (7.4-10.4) fL Add Manual Diff Neutrophils % (Manual) (46-82) % Band Neutrophils % (0-6) % Lymphocytes % (Manual) (13-37) % Monocytes % (Manual) (4-12) % Polychromasia Anisocytosis Microcytosis Sodium (135-145) mmol/L Potassium (3.5-5.3) mmol/L Chloride (100-110) mmol/L Carbon Dioxide (21-32) mmol/L BUN (7-18) mg/dL Creatinine (0.70-1.30) mg/dL Est Cr Clr Drug Dosing Estimated GFR (MDRD) (>60) BUN/Creatinine Ratio (9-20) Glucose (80-116) mg/dL POC Glucose 151 H (80-116) mg/dL Lactic Acid (0.4-2.2) mmol/L Calcium (8.6-10.2) mg/dL Urine Color Yellow (YELLOW) Urine Appearance Slightly cloudy (CLEAR) Urine pH 5.0 (5.0-6.5) Ur Specific [place] 1.020 (1.010-1.025) Urine Protein Negative (NEGATIVE) mg/dL Urine Glucose (UA) Normal (NEGATIVE) mg/dL Urine Ketones Negative (NEGATIVE) mg/dL Urine Occult Blood Moderate H (NEGATIVE) Urine Nitrite Negative (NEGATIVE) Urine Bilirubin Small H (NEGATIVE) Urine Urobilinogen 1 H (NEGATIVE) mg/dL Ur Leukocyte Esterase Negative (NEGATIVE) Urine RBC 0-5 (0) Urine WBC 0-5 (0) Ur Squamous Epith Cells Few H (NS,R,O) Urine Bacteria Few H (NS) Blood Type A POSITIVE Gel Antibody Screen Negative Crossmatch See Detail Result Diagrams: 06/22/18 13:05 06/22/18 13:05 - Problem List (1) Pneumonia SNOMED Code(s): 388874455 ICD Code: J18.9 - PNEUMONIA, UNSPECIFIED ORGANISM Status: Acute Current Visit: Yes Qualifiers: Pneumonia type: due to unspecified organism Laterality: left (2) COLLIN (acute kidney injury) SNOMED Code(s): 02405110 ICD Code: N17.9 - ACUTE KIDNEY FAILURE, UNSPECIFIED Status: Acute Current Visit: No (3) Anemia SNOMED Code(s): 989078712 ICD Code: D64.9 - ANEMIA, UNSPECIFIED Status: Acute Current Visit: No Qualifiers: Anemia type: unspecified type Qualified Code(s): D64.9 - Anemia, unspecified (4) DM2 (diabetes mellitus, type 2) SNOMED Code(s): 15552194 ICD Code: E11.9 - TYPE 2 DIABETES MELLITUS WITHOUT COMPLICATIONS Status: Acute Current Visit: No Qualifiers: Diabetes mellitus alf 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 (6) Lethargy SNOMED Code(s): 476653668 ICD Code: R53.83 - OTHER FATIGUE Status: Acute Current Visit: No (7) SIRS (systemic inflammatory response syndrome) SNOMED Code(s): 924973390 ICD Code: R65.10 - SIRS OF NON-INFECTIOUS ORIGIN W/O ACUTE ORGAN DYSFUNCTION Status: Acute Current Visit: No (8) H/O: CVA (cerebrovascular accident) SNOMED Code(s): 197890529 ICD Code: Z86.73 - PRSNL HX OF TIA (TIA), AND CEREB INFRC W/O RESID DEFICITS Status: Chronic Current Visit: No Problem Details: Post-stroke cares. (9) Obesity SNOMED Code(s): 786520658, 360701590 ICD Code: E66.9 - OBESITY, UNSPECIFIED Status: Chronic Current Visit: No Qualifiers: Obesity type: due to excess calories (10) Afib SNOMED Code(s): 26026514 ICD Code: I48.91 - UNSPECIFIED ATRIAL FIBRILLATION Status: Acute Current Visit: Yes Qualifiers: Atrial fibrillation type: paroxysmal Qualified Code(s): I48.0 - Paroxysmal atrial fibrillation (11) Long-term (current) use of anticoagulants, INR goal 2.0-3.0 SNOMED Code(s): 316441569, 281753725 ICD Code: Z79.01 - LONG-TERM (CURRENT) USE OF ANTICOAGULANTS Status: Acute Current Visit: Yes Problem List Initiated/Reviewed/Updated: Yes Orders Last 24hrs: Active Orders 24 hr Category Date Time Status Patient Status [ADT] Routine ADT 06/22/18 14:34 Active Blood Glucose Check, Bedside [RC] ONETIME Care 06/23/18 06:00 Active Oxygen Therapy [RC] PRN Care 06/22/18 14:34 Active Pulse Oximetry [RC] PRN Care 06/22/18 14:37 Active Up With Assistance [RC] ASDIRECTED Care 06/22/18 14:34 Active Urinary Catheter Assessment [RC] 00,08,16 Care 06/22/18 14:57 Active Urinary Catheter Insertion [Insert Urinary Catheter] [ Care 06/22/18 15:00 Ordered OM.PC] Q24H VTE/DVT Education [RC] Per Unit Routine Care 06/22/18 14:34 Active Vital Signs [RC] 00,04,08,12,16,20 Care 06/22/18 14:34 Active BASIC METABOLIC PANEL,BMP [CHEM] Stat Lab 06/23/18 09:49 Ordered CBC WITH AUTO DIFF [HEME] Stat Lab 06/23/18 09:49 Ordered CULTURE BLOOD [BC] Urgent Lab 06/22/18 13:42 Received CULTURE BLOOD [BC] Urgent Lab 06/22/18 13:47 Received RED BLOOD CELLS LP [BBK] Urgent Lab 06/23/18 09:55 Ordered TYPE AND SCREEN [BBK] Stat Lab 06/22/18 13:05 Results Lactated Ringers [Ringers, Lactated] 1,000 ml Med 06/22/18 19:45 Active IV ASDIRECTED Levofloxacin/Dextrose 5%-Water [Levaquin in D5W 750 MG/ Med 06/24/18 14:00 Active 150 ML] 750 mg Premix Bag 1 bag IV Q48H Piperacillin/Tazobactam [Zosyn] 3.375 gm Med 06/22/18 16:00 Active Sodium Chloride 0.9% [Normal Saline] 50 ml IV Q6H Sodium Chloride 0.9% [Normal Saline] 250 ml Med 06/23/18 10:00 Ordered IV ASDIRECTED Sodium Chloride 0.9% [Saline Flush] Med 06/22/18 14:34 Active 10 ml FLUSH ASDIRECTED PRN Blood Culture x2 Reflex Set [OM.PC] Urgent Oth 06/22/18 13:32 Ordered Peripheral IV Insertion Adult [OM.PC] Routine Oth 06/22/18 14:34 Ordered Transfuse PRBC [Transfuse Red Blood Cells] [COMM] Oth 06/23/18 09:55 Ordered Urgent Resuscitation Status Routine Resus Stat 06/22/18 14:34 Ordered EKG 12 Lead [EK] Routine Ther 06/22/18 12:48 Ordered Medication Orders Piperacillin Sod/Tazobactam (Sod 3.375 gm/ Sodium Chloride) 50 mls @ 100 mls/ hr IV Q6H MARCELO Last Admin: 06/23/18 09:30 Dose: 100 mls/hr Admin: 06/23/18 03:50 Dose: 100 mls/hr Admin: 06/22/18 21:59 Dose: 100 mls/hr Admin: 06/22/18 16:49 Dose: 100 mls/hr Levofloxacin/Dextrose 750 mg/ (Premix) 150 mls @ 100 mls/hr IV Q48H MARCELO Lactated Ringer's (Ringers, Lactated) 1,000 mls @ 125 mls/hr IV ASDIRECTED MARCELO Last Admin: 06/23/18 04:03 Dose: 125 mls/hr Infusion: 06/23/18 03:43 Dose: 125 mls/hr Admin: 06/22/18 19:43 Dose: 125 mls/hr Sodium Chloride (Normal Saline) 250 mls @ 100 mls/hr IV ASDIRECTED MARCELO Sodium Chloride (Saline Flush) 10 ml FLUSH ASDIRECTED PRN PRN Reason: Keep Vein Open Last Admin: 06/22/18 22:12 Dose: 10 ml Admin: 06/22/18 16:48 Dose: 10 ml Admin: 06/22/18 15:35 Dose: 10 ml Admin: 06/22/18 14:00 Dose: 10 ml Assessment/Plan Comment:: His x-ray which I personally reviewed did show right lower lobe infiltrate. I will start him on Levaquin and Zosyn, push oral fluids, and diabetic diet,with tight glycemic control. Also ordered 2 units of PRBCs today.
[2018-06-23] MEDS ORDERED: Sodium Chloride 0.9% 250 ML IV SCH ×2 (10:00→12:45)
[2018-06-23] MEDS ORDERED: Bisacodyl 10 MG Supp RECTAL PRN (10:06)
[2018-06-23] MEDS ORDERED: Magnesium Hydroxide 400 MG/5 ML Susp 30 ML Cup PO PRN (10:06)
[2018-06-23] MEDS ORDERED: Loperamide 2 MG Cap PO PRN (10:06)
[2018-06-23] MEDS ORDERED: Lidocaine/Prilocaine 2.5-2.5% Crm 5 GM Tube TOP PRN (10:06)
[2018-06-23] MEDS: Aspirin 325 MG Tab.EC PO SCH (10:59)
[2018-06-23] MEDS: Gabapentin 300 MG Cap PO SCH ×2 (10:59→18:41)
[2018-06-23] MEDS: Baclofen 10 MG Tab PO SCH ×2 (10:59→18:41)
[2018-06-23] MEDS: risperiDONE 0.25 MG Tab PO SCH ×2 (10:59→16:27)
[2018-06-23] MEDS: levETIRAcetam 500 MG Tab PO SCH ×2 (10:59→18:40)
[2018-06-23] MEDS: Albuterol/Ipratropium 3.0-0.5 MG/3 ML Neb Soln INH SCH ×2 (11:17→22:02)
[2018-06-23] MEDS: Sodium Chloride 0.9% 10 ML Syringe FLUSH PRN (12:35)
[2018-06-23] MEDS ORDERED: Furosemide 80 MG Tab PO SCH (18:00)
[2018-06-23] MEDS ORDERED: Simvastatin 20 MG Tab PO SCH (18:00)
[2018-06-23] MEDS ORDERED: Insulin Glargine,Human Rec. Analog 100 Units/ML 3 ML Pen SUBCUT SCH (18:00)
[2018-06-24] MEDS: Piperacillin/Tazobactam 3.375 GM in Sodium Chloride 0.9% 50 ML IV SCH (04:54)
[2018-06-24] MEDS: Albuterol/Ipratropium 3.0-0.5 MG/3 ML Neb Soln INH SCH (07:24)
--- NOTE | 2018-06-24 08:17 | PCM.PN ---
- General Info Date of Service: 06/24/18 Subjective Update: Mr. Justin feels better today is off oxygenation got 2 units of blood. Functional Status: Reports: Pain Controlled - Review of Systems General: Reports: No Symptoms HEENT: Reports: No Symptoms Pulmonary: Reports: No Symptoms Cardiovascular: Reports: No Symptoms Gastrointestinal: Reports: No Symptoms Genitourinary: Reports: No Symptoms Musculoskeletal: Reports: No Symptoms Skin: Reports: No Symptoms Neurological: Reports: No Symptoms - Patient Data Vitals - Most Recent: Last Vital Signs Temp 98.1 F 06/24/18 04:00 Pulse 80 06/24/18 04:00 Resp 18 06/24/18 04:00 BP 112/68 06/24/18 04:00 Pulse Ox 96 06/24/18 04:00 Weight - Most Recent: 116.233 kg I&O - Last 24 Hours: Intake & Output 06/23/18 06/24/18 06/24/18 22:59 06:59 14:59 Intake Total 1292 Balance 1292 Lab Results Last 24 Hours: Laboratory Results - last 24 hr 06/22/18 06/23/18 06/23/18 Range/Units 13:05 10:41 10:41 WBC 6.8 (4.5-12.0) X10-3/uL RBC 2.27 L (4.30-5.75) x10(6)uL Hgb 6.8 L* (11.5-15.5) g/dL Hct 20.9 L* (30.0-51.3) % MCV 92.4 (80-96) fL MCH 30.0 (27.7-33.6) pg MCHC 32.5 (32.2-35.4) g/dL RDW 18.9 H (11.5-15.5) % Plt Count 241 (125-369) X10(3)uL MPV 7.5 (7.4-10.4) fL Neut % (Auto) (46-82) % Lymph % (Auto) (13-37) % [place] % (Auto) (4-12) % Eos % (Auto) (1.0-5.0) % Baso % (Auto) (0-2) % Neut # (Auto) (1.6-8.3) # Lymph # (Auto) (0.6-5.0) # [place] # (Auto) (0.0-1.3) # Eos # (Auto) (0.0-0.8) # Baso # (Auto) (0.0-0.2) # Add Manual Diff Yes Neutrophils % (Manual) 70 (46-82) % Lymphocytes % (Manual) 20 (13-37) % Monocytes % (Manual) 10 (4-12) % Polychromasia Few Anisocytosis Moderate H Sodium 147 H (135-145) mmol/L Potassium 3.6 (3.5-5.3) mmol/L Chloride 109 (100-110) mmol/L Carbon Dioxide 31 (21-32) mmol/L BUN 30 H (7-18) mg/dL Creatinine 1.9 H (0.70-1.30) mg/dL Est Cr Clr Drug Dosing 29.38 mL/min Estimated GFR (MDRD) 35 L (>60) BUN/Creatinine Ratio 15.8 (9-20) Glucose 154 H (80-116) mg/dL POC Glucose (80-116) mg/dL Calcium 8.4 L (8.6-10.2) mg/dL Blood Type A POSITIVE Gel Antibody Screen Negative Crossmatch See Detail 06/23/18 06/23/18 06/24/18 Range/Units 11:10 17:24 06:00 WBC 5.4 (4.5-12.0) X10-3/uL RBC 2.73 L (4.30-5.75) x10(6)uL Hgb 8.0 L (11.5-15.5) g/dL Hct 24.6 L (30.0-51.3) % MCV 90.2 (80-96) fL MCH 29.2 (27.7-33.6) pg MCHC 32.4 (32.2-35.4) g/dL RDW 17.4 H (11.5-15.5) % Plt Count 222 (125-369) X10(3)uL MPV 7.3 L (7.4-10.4) fL Neut % (Auto) 62.4 (46-82) % Lymph % (Auto) 18.8 (13-37) % [place] % (Auto) 14.6 H (4-12) % Eos % (Auto) 4 (1.0-5.0) % Baso % (Auto) 0 (0-2) % Neut # (Auto) 3.4 (1.6-8.3) # Lymph # (Auto) 1.0 (0.6-5.0) # [place] # (Auto) 0.8 (0.0-1.3) # Eos # (Auto) 0.2 (0.0-0.8) # Baso # (Auto) 0.0 (0.0-0.2) # Add Manual Diff Neutrophils % (Manual) (46-82) % Lymphocytes % (Manual) (13-37) % Monocytes % (Manual) (4-12) % Polychromasia Anisocytosis Sodium (135-145) mmol/L Potassium (3.5-5.3) mmol/L Chloride (100-110) mmol/L Carbon Dioxide (21-32) mmol/L BUN (7-18) mg/dL Creatinine (0.70-1.30) mg/dL Est Cr Clr Drug Dosing mL/min Estimated GFR (MDRD) (>60) BUN/Creatinine Ratio (9-20) Glucose (80-116) mg/dL POC Glucose 209 H 155 H (80-116) mg/dL Calcium (8.6-10.2) mg/dL Blood Type Gel Antibody Screen Crossmatch 06/24/18 Range/Units 06:00 WBC (4.5-12.0) X10-3/uL RBC (4.30-5.75) x10(6)uL Hgb (11.5-15.5) g/dL Hct (30.0-51.3) % MCV (80-96) fL MCH (27.7-33.6) pg MCHC (32.2-35.4) g/dL RDW (11.5-15.5) % Plt Count (125-369) X10(3)uL MPV (7.4-10.4) fL Neut % (Auto) (46-82) % Lymph % (Auto) (13-37) % [place] % (Auto) (4-12) % Eos % (Auto) (1.0-5.0) % Baso % (Auto) (0-2) % Neut # (Auto) (1.6-8.3) # Lymph # (Auto) (0.6-5.0) # [place] # (Auto) (0.0-1.3) # Eos # (Auto) (0.0-0.8) # Baso # (Auto) (0.0-0.2) # Add Manual Diff Neutrophils % (Manual) (46-82) % Lymphocytes % (Manual) (13-37) % Monocytes % (Manual) (4-12) % Polychromasia Anisocytosis Sodium 145 (135-145) mmol/L Potassium 3.3 L (3.5-5.3) mmol/L Chloride 108 (100-110) mmol/L Carbon Dioxide 32 (21-32) mmol/L BUN 30 H (7-18) mg/dL Creatinine 1.8 H (0.70-1.30) mg/dL Est Cr Clr Drug Dosing 31.01 mL/min Estimated GFR (MDRD) 37 L (>60) BUN/Creatinine Ratio 16.7 (9-20) Glucose 114 (80-116) mg/dL POC Glucose (80-116) mg/dL Calcium 8.1 L (8.6-10.2) mg/dL Blood Type Gel Antibody Screen Crossmatch Cody Results Last 24 Hours: Microbiology 06/22/18 13:42 Aerobic Blood Culture - Preliminary Blood - Venous NO GROWTH AFTER 1 DAY Anaerobic Blood Culture - Preliminary NO GROWTH AFTER 1 DAY 06/22/18 13:47 Aerobic Blood Culture - Preliminary Blood - Venous - Lab Draw NO GROWTH AFTER 1 DAY Anaerobic Blood Culture - Preliminary NO GROWTH AFTER 1 DAY Med Orders - Current: Current Medications Albuterol/Ipratropium (Duoneb 3.0-0.5 Mg/3 Ml) 3 ml INH BIDRT [facility] Last Admin: 06/24/18 07:24 Dose: 3 ml Aspirin (Ecotrin) 325 mg PO DAILY [facility] Last Admin: 06/23/18 10:59 Dose: 325 mg Baclofen (Lioresal) 10 mg PO 08,18 [facility] Last Admin: 06/23/18 18:41 Dose: 10 mg Bisacodyl (Dulcolax) 10 mg RECTAL Q72H PRN PRN Reason: Constipation Furosemide (Lasix) 80 mg PO 1800 [facility] Last Admin: 06/23/18 18:40 Dose: 80 mg Gabapentin (Neurontin) 300 mg PO 08,12,18 [facility] Last Admin: 06/23/18 18:41 Dose: 300 mg Heparin Sodium (Porcine) (Heparin Lock Flush 100 Units/Ml) 500 units FLUSH Q28D [facility] Heparin Sodium (Porcine) (Heparin Lock Flush 100 Units/Ml) 300 units FLUSH ASDIRECTED PRN PRN Reason: flush port Last Admin: 06/23/18 12:35 Dose: 300 units Piperacillin Sod/Tazobactam (Sod 3.375 gm/ Sodium Chloride) 50 mls @ 100 mls/ hr IV Q6H [facility] Last Admin: 06/24/18 04:54 Dose: 100 mls/hr Levofloxacin/Dextrose 750 mg/ (Premix) 150 mls @ 100 mls/hr IV Q48H [facility] Sodium Chloride (Normal Saline) 250 mls @ 100 mls/hr IV ASDIRECTED [facility] Last Admin: 06/23/18 14:24 Dose: 100 mls/hr Insulin Glargine (Lantus Solostar) 15 units SUBCUT WITHDINNER [facility] Last Admin: 06/23/18 19:04 Dose: 15 units Levetiracetam (Keppra) 1,000 mg PO ,18 [facility] Last Admin: 06/23/18 18:40 Dose: 1,000 mg Lidocaine/Prilocaine (Emla Crm) 0 gm TOP ASDIRECTED PRN PRN Reason: PRIOR TO PORT FLUSH Loperamide HCl (Imodium) 2 mg PO ASDIRECTED PRN PRN Reason: Diarrhea Magnesium Hydroxide (Milk Of Magnesia) 30 ml PO DAILY PRN PRN Reason: Constipation Paroxetine HCl (Paxil) 30 mg PO DAILY [facility] Last Admin: 06/23/18 10:59 Dose: 30 mg Risperidone (Risperidal) 0.25 mg PO 12,16 [facility] Last Admin: 06/23/18 16:27 Dose: 0.25 mg Senna/Docusate Sodium (Senna Plus) 1 tab PO 08,18 [facility] Last Admin: 06/23/18 18:41 Dose: 1 tab Simvastatin (Zocor) 20 mg PO 1800 [facility] Last Admin: 06/23/18 18:42 Dose: 20 mg Sodium Chloride (Saline Flush) 10 ml FLUSH ASDIRECTED PRN PRN Reason: Keep Vein Open Last Admin: 06/23/18 12:35 Dose: 10 ml Discontinued Medications Albuterol/Ipratropium (Duoneb 3.0-0.5 Mg/3 Ml) 3 ml NEB ONETIME ONE Stop: 06/22/18 12:48 Last Admin: 06/22/18 12:57 Dose: 3 ml Levofloxacin/Dextrose 750 mg/ (Premix) 150 mls @ 100 mls/hr IV ONETIME ONE Stop: 06/22/18 15:02 Last Admin: 06/22/18 14:08 Dose: 100 mls/hr Lactated Ringer's (Ringers, Lactated) 1,000 mls @ 125 mls/hr IV ASDIRECTED MARCELO Last Admin: 06/23/18 04:03 Dose: 125 mls/hr Sodium Chloride (Normal Saline) 250 mls @ 100 mls/hr IV ASDIRECTED MARCELO - Exam General: Alert HEENT: Pupils Equal Neck: Supple Lungs: Clear to Auscultation Cardiovascular: Regular Rate, Murmurs - Problem List & Annotations (1) Pneumonia SNOMED Code(s): 819783487 Code(s): J18.9 - PNEUMONIA, UNSPECIFIED ORGANISM Status: Acute Current Visit: Yes Qualifiers: Pneumonia type: due to unspecified organism Laterality: left (2) COLLIN (acute kidney injury) SNOMED Code(s): 79550192 Code(s): N17.9 - ACUTE KIDNEY FAILURE, UNSPECIFIED Status: Acute Current Visit: No (3) Anemia SNOMED Code(s): 798123842 Code(s): D64.9 - ANEMIA, UNSPECIFIED Status: Acute Current Visit: No Qualifiers: Anemia type: unspecified type Qualified Code(s): D64.9 - Anemia, unspecified (4) DM2 (diabetes mellitus, type 2) SNOMED Code(s): 23090172 Code(s): E11.9 - TYPE 2 DIABETES MELLITUS WITHOUT COMPLICATIONS Status: Acute Current Visit: No Qualifiers: 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 (6) Lethargy SNOMED Code(s): 401997744 Code(s): R53.83 - OTHER FATIGUE Status: Acute Current Visit: No (7) SIRS (systemic inflammatory response syndrome) SNOMED Code(s): 803117018 Code(s): R65.10 - SIRS OF NON-INFECTIOUS ORIGIN W/O ACUTE ORGAN DYSFUNCTION Status: Acute Current Visit: No (8) H/O: CVA (cerebrovascular accident) SNOMED Code(s): 901454550 Code(s): Z86.73 - PRSNL HX OF TIA (TIA), AND CEREB INFRC W/O RESID DEFICITS Status: Chronic Current Visit: No Annotation/Comment:: Post-stroke cares. 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) USE OF ANTICOAGULANTS Status: Acute Current Visit: Yes - Problem List Review Problem List Initiated/Reviewed/Updated: Yes - My Orders Last 24 Hours: My Active Orders 06/23/18 10:06 Bisacodyl [Dulcolax] 10 mg RECTAL Q72H PRN Lidocaine/Prilocaine [EMLA Crm] 0 gm TOP ASDIRECTED PRN Loperamide [Imodium] 2 mg PO ASDIRECTED PRN Magnesium Hydroxide [Milk of Magnesia] 30 ml PO DAILY PRN 06/23/18 10:30 Aspirin [Ecotrin] 325 mg PO DAILY Baclofen [Lioresal] 10 mg PO Docusate Sodium/Sennosides [Senna Plus] 1 tab PO , PARoxetine [Paxil] 30 mg PO DAILY levETIRAcetam [Keppra] 1,000 mg PO ,18 06/23/18 11:00 Albuterol/Ipratropium [DuoNeb 3.0-0.5 MG/3 ML] 3 ml INH BIDRT 06/23/18 11:06 Accu Check [Blood Glucose Check, Bedside] [RC] TIDMEALS 06/23/18 12:00 Gabapentin [Neurontin] 300 mg PO 08,12,18 risperiDONE [RisperiDAL] 0.25 mg PO 12,16 06/23/18 12:22 Heparin Sodium [Heparin Lock Flush 100 Units/ML] 300 units FLUSH ASDIRECTED PRN 06/23/18 12:31 Transfuse PRBC [Transfuse Red Blood Cells] [COMM] Routine 06/23/18 12:45 Sodium Chloride 0.9% [Normal Saline] 250 ml IV ASDIRECTED 06/23/18 18:00 Furosemide [Lasix] 80 mg PO 1800 Insulin Glarg,Human.Rec.Analog [LantUS Solostar] 15 units SUBCUT WITHDINNER Simvastatin [Zocor] 20 mg PO 1800 06/23/18 Lunch Consistent Carbohydrate Diet [DIET] 06/26/18 08:00 Heparin Sodium [Heparin Lock Flush 100 Units/ML] 500 units FLUSH Q28D - Plan Plan:: may return to [place] today on oral abx
[2018-06-24] MEDS: levETIRAcetam 500 MG Tab PO SCH (10:35)
[2018-06-24] MEDS: Gabapentin 300 MG Cap PO SCH (10:36)
[2018-06-24] MEDS: Baclofen 10 MG Tab PO SCH (10:36)
[2018-06-24] MEDS: Aspirin 325 MG Tab.EC PO SCH (10:37)
[2018-06-24 11:01] VITALS: BP 116/66
--- NOTE | 2018-06-24 11:34 | DISCH ---
DISCHARGE DATE: 06/24/2018 REASON FOR ADMISSION: 1. Healthcare-associated pneumonia. 2. Anemia. CHRONIC MEDICAL PROBLEMS: Including but not limited to: 1. Type 2 diabetes. 2. Obesity. 3. Chronic kidney disease. 4. Atrial fibrillation. 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 6. Stroke in the past. 7. Hypertension. BRIEF HISTORY AND HOSPITAL COURSE: A 77-year-old who was admitted with fatigue, low-grade fever, lethargy, and a chest x-ray showed some infiltration on the right lower base, which has been treated previously. He was admitted with IV Levaquin and Zosyn. He was on oxygenation upon admission and his hemoglobin was 7.2 and came down to 6.8. He was given 2 units of PRBCs. By today, this morning, he has improved enough to go [facility]. I will send him home on oral Omnicef and Levaquin, renew appropriate doses, and follow up with PCP at the [facility]. No other changes to medications. Please note that I spent more than 35 minutes in discharge of the patient. /[id number] IGLESIA/SANDRA
[2018-06-24] MEDS ORDERED: Levofloxacin/Dextrose 5%-Water 750 MG in Premix Bag 1 BAG IV SCH (14:00)
== END 2018-06-24 10:55 | DRG 194 ==
LOC: FB.ED 12:29 → FB.MS 15:02
PROVIDERS: ADMIT Family Medicine; ATTEND Family Medicine
PROC: 30233N1 Transfusion of Nonautologous Red Blood Cells into Peripheral Vein, Percutaneous Approach (ICD-10-PCS; principal; 2018-06-23)
DX: J18.8 Other pneumonia, unspecified organism (principal); I42.9 Cardiomyopathy, unspecified; Z68.41 Body mass index [BMI] 40.0-44.9, adult; Z66 Do not resuscitate; D50.9 Iron deficiency anemia, unspecified; E11.22 Type 2 diabetes mellitus with diabetic chronic kidney disease; N18.3 Chronic kidney disease, stage 3 (moderate); Z79.4 Long term (current) use of insulin; I48.0 Paroxysmal atrial fibrillation; R06.02 Shortness of breath; R53.1 Weakness; R53.83 Other fatigue; Z86.73 Personal history of transient ischemic attack (TIA), and cerebral infarction without residual deficits; E78.00 Pure hypercholesterolemia, unspecified; Z86.718 Personal history of other venous thrombosis and embolism; K21.9 Gastro-esophageal reflux disease without esophagitis; R32 Unspecified urinary incontinence; Z87.440 Personal history of urinary (tract) infections; F32.9 Major depressive disorder, single episode, unspecified; F41.9 Anxiety disorder, unspecified; E66.01 Morbid (severe) obesity due to excess calories; Z87.01 Personal history of pneumonia (recurrent); Z79.82 Long term (current) use of aspirin; G47.9 Sleep disorder, unspecified; I73.9 Peripheral vascular disease, unspecified; Z79.01 Long term (current) use of anticoagulants
CPT/HCPCS: 36415; 71045; 80048; 81001; 83605; 85025; 86850; 86900; 86901; 86920; 86922; 87040 ×2; 93005; 94640; 96365; 99284; 99285; J1956; 36430; 82962; A9270-GY; J1642; J1815-GY; J2543; J7050; J7120; J7620-GY; P9016